=== PATIENT | female | born 1950 | race Caucasian/White ===

== ENCOUNTER 2023-12-29 16:56 | Inpatient (IN) | payer MEDICARE, OTHER, SELFPAY ==
[2023-12-29] VITALS (7 sets, daily range): BP systolic 105–114; BP diastolic 51–63; BMI 24.9; BMI 24.7
--- NOTE | 2023-12-29 12:28 | ED.GENMED ---
History of Present Illness
General
Chief Complaint: Abdominal Pain
Time Seen by Provider: 12/29/23 12:27
History of Present Illness
History of Present Illness:
HPI: Patient presents with upper abdominal pain. This started about 4 days ago. She is concerned about the positive pancreatitis as she has nausea and poor p.o. intake and is on Lumakras for lung cancer over the past 1 month. She tried some
marijuana drops last night which seem to help the pain. She has not had fevers. She has had a hysterectomy and no other abdominal surgeries.
EXAM:
GENERAL: Well appearing in no distress
HEENT: Moist oral mucosa
CARDIOVASCULAR: No murmurs, normal heart rate, regular rhythm, No chest wall tenderness
PULMONARY: No respiratory distress, breath sounds are clear and equal
ABDOMEN: Soft with no peritoneal signs, moderate upper abdominal tenderness
NEUROLOGIC: Excellent strength all extremities, no coordination deficits
PSYCHIATRIC: Appropriate mental status, normal insight and judgement
EXTREMITIES: Nontender, no edema, moves all extremities equally
SKIN: No rash, no lesions
TIME OF INITIAL ENCOUNTER: 12:30 PM
NUMBER AND COMPLEXITY OF PROBLEMS ADDRESSED AT THE ENCOUNTER
� Chronic conditions affecting care: Lung cancer, asthma, anemia, diabetes, hyperlipidemia
� Acute Exacerbation and/or Progression of Chronic Illness: This is an acute problem
� Differential Diagnosis includes: Bowel obstruction, dehydration, JAY, pancreatitis, cholecystitis
AMOUNT AND/OR COMPLEXITY OF DATA TO BE REVIEWED AND ANALYZED
� I performed an independent evaluation of and my interpretation is:
EKG:
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
X-rays:
Laboratory Studies: White count 7.2, hemoglobin 10.1, lipase normal, minimal LFT abnormality
Other:
� Review of other/old records: I reviewed records. The patient was admitted here in February 2023 with a COPD exacerbation. At that time he was also septic with pneumonia and had 'acute toxic encephalopathy due to Levaquin and
steroids'.
� Clinical information was obtained by an independent historian: None needed
� Prescriptions/Medications Considered but not given:
� Further testing considered but not performed:
RISK OF COMPLICATIONS AND/OR MORBIDITY OR MORTALITY OF PATIENT MANAGEMENT
� Social determinants of health affecting care: Lives at home
� Discussion with other providers: As patient has new abdominal pain in the abdomen abdomen with abnormal aorta imaging, I discussed case with vascular surgery.
� Escalation of care including admission/observation vs risk of discharge considered: The patient is given IV fluids due to concerns for the possible dehydration. She was encouraged to not take anything by mouth currently. Will
obtain CT imaging given the amount of tenderness that she has. CT imaging shows increasing size of known distal thoracic aortic aneurysm. Patient tells me she refused surgery as recommended by Dr. Paz in the past. However she also feels
uncomfortable going home. She did was given Dilaudid earlier in the stay today.
Past History
Past History
ED Past Medical History: Cancer and COPD
ED Past Surgical History: Negative Cholecystectomy
Social History
Tobacco: Former smoker
Alcohol: None
Drug: None
Personal:
Living: with family
Employment: Not employed
Family History
Family History: Other
Phy Exam
Physical Exam
Physical Exam:
See HPI
Course
Orders/Labs/Results
Orders:
Orders
12/29/23 12:29
0.9% Sodium Chloride 1000 ml [Nss] 1,000 ml IV BOLUS
12/29/23 12:37
0.9% Sodium Chloride 1000 ml [Nss] 1,000 ml IV BOLUS
Ondansetron Injectable [Zofran] 4 mg IV NOW STA
12/29/23 12:38
CT Abd/pelvis W Iv Cont Urgent
Comment:
Reason For Exam: upper abd pain tender nausea
12/29/23 13:10
HYDROmorphone [Dilaudid] 0.5 mg IV NOW STA
12/29/23 13:27
Complete Blood Count/With Diff Urgent
Comprehensive Metabolic Panel Urgent
Lipase Urgent
Abnormal Lab Results
12/29/23
13:27
RBC 3.60 L 10^6/uL
(4.20-5.40)
Hgb 10.1 L g/dL
(12.0-16.0)
Hct 30.4 L %
(37.0-47.0)
Absolute Lymphs (auto) 0.5 L 10^3/uL
(1.2-3.4)
Absolute Monos (auto) 0.8 H 10^3/uL
(0.1-0.6)
Neutrophils % 80.6 H %
(42.2-75.2)
Lymphocytes % 7.2 L %
(20.5-51.1)
Monocytes % 10.4 H %
(1.7-9.3)
Sodium 134 L mmol/L
(135-145)
Glucose 112 H mg/dl
(70-99)
AST 40 H U/L
(14-36)
ALT 51 H U/L
(0-35)
Alkaline Phosphatase 149 H U/L
(38-126)
Total Protein 6.0 L g/dl
(6.3-8.2)
Albumin 3.4 L g/dl
(3.5-5.0)
12/29/23 13:27
12/29/23 13:27
Vital Signs
Initial and Last Documented VS:
Initial Vital Signs
Temp Pulse Resp BP Pulse Ox
98.2 F 92 20 114/54 93
12/29/23 12:05 12/29/23 12:05 12/29/23 12:05 12/29/23 12:05 06/21/24 12:05
Last Documented Vital Signs
Temp Pulse Resp BP Pulse Ox
98.2 F 88 23 108/51 96
12/29/23 12:05 12/29/23 15:15 12/29/23 15:15 12/29/23 15:00 12/29/23 15:15
*Critical Care Note
Total Time (30-74mins, 75-104mins- exclusive of procedures): Not Applicable
ED Attending Note
-
Portions of this chart may have been created with voice recognition software.� Occasional wrong word or��sound alike� substitutions may have occurred due to the inherent limitations of voice recognition software.
Discharge Plan
Departure
Patient Disposition: Admit
Date of Disposition: 12/29/23
Time of Disposition: 16:09
Presentation/result/management discussed w/ accepting MD/DO: Hospitalist
Discharge Problem:
Abdominal pain
Prescriptions:
No Action
aspirin 81 MG tablet,delayed release (DR/EC)
81 mg PO DAILY Qty: 0 0RF
rosuvastatin [Crestor] 10 MG tablet
10 mg PO QPM
albuterol sulfate 1 PUFF HFA aerosol inhaler
2 puff inhalation R Q4 PRN (Reason: sob/wheeze)
cetirizine [Zyrtec] 10 mg Tablet
10 mg PO DAILY PRN (Reason: allergies)
amlodipine 5 mg tablet
5 mg PO DAILY
alprazolam 0.25 mg tablet
0.125 - 0.25 mg PO DAILY PRN (Reason: anxiety)
metoprolol tartrate 50 mg tablet
75 mg PO BID
nitroglycerin [Nitrostat] 0.4 mg Tablet, Sublingual
0.4 mg SUBLINGUAL [id number] PRN (Reason: chest pain)
montelukast 10 mg tablet
10 mg PO QPM
fluticasone propionate 50 mcg/actuation [place],Suspension
1 spray INTRANASAL DAILY PRN (Reason: allergies)
Bevespi Aerosphere 9-4.8 mcg HFA aerosol inhaler
2 puff INHALATION R BID
Medical Marijuana
3 - 5 drp PO HS
Rx Instructions:
for anxiety/dreams sleep
cefuroxime axetil 500 mg Tablet
500 mg PO BID Qty: 7 0RF
guaifenesin 600 mg Tablet Extended Release 12hr
600 mg PO Q12 Qty: 0 0RF
prednisone 10 mg tablet
10 mg PO DAILY Qty: 30 0RF
Rx Instructions:
Taper: 40mg daily x 3 days, 30mg daily x 3 days, 20mg daily x 3 days, 10mg daily x 3 days
metformin 500 mg Tablet
500 mg PO BID@0800,1700 Qty: 60 0RF
glipizide 5 mg Tablet
5 mg PO BID@0800,1700 Qty: 60 0RF
Referrals:
Héctor Serrano MD [Family Provider] -
Interventions
Interventions:
*Risk Screen - Suicide Last Done: 12/29/23 12:05
*General Assessment Last Done: 12/29/23 12:05
*Neglect/Abuse Screening Last Done: 12/29/23 12:05
[id number] Assessment Last Done: 12/29/23 13:05
Discharge Date and Time
Print Language: ESTONIAN
[2023-12-29] MEDS: NSS 1000 IV (13:26)
[2023-12-29] MEDS: ZOFRAN IV (13:26)
[2023-12-29] MEDS: DILAUDID 0.5 MG IV (13:26)
[2023-12-29 13:38] LABS: % Basophils 0.1 % (0-2); % Eosinophils 1.3 % (0-6); % Immature Granulocytes 0.4 % (0-0.5); % Lymphocytes 7.2 % (20.5-51.1); % Monocytes 10.4 % (1.7-9.3); % Neutrophils 80.6 % (42.2-75.2); Absolute Eosinophils 0.1 10^3/uL (0-0.7); Absolute Lymphocytes 0.5 10^3/uL (1.2-3.4); Absolute Monocytes 0.8 10^3/uL (0.1-0.6); Absolute Neutrophils 5.8 10^3/uL (1.4-6.5); Hematocrit 30.4 % (37.0-47.0); Hemoglobin 10.1 g/dL (12.0-16.0); Mean Corp Hgb Conc. 33.2 g/dL (33.0-37.0); Mean Corpuscular Hgb 28.1 pg (27.0-31.0); Mean Corpuscular Volume 84.4 fL (81.0-99.0); Mean Platelet Volume 8.9 fL (7.4-10.4); Nucleated Red Blood Cells % 0 %; Platelet Count 318 10^3/uL (130-400); Red Cell Dist. Width 12.9 % (11.5-14.5); White Blood Cell Count 7.2 10^3/uL (4.8-10.8)
[2023-12-29 13:50] LABS: ALT (SGPT) 51 U/L (0-35); AST (SGOT) 40 U/L (14-36); Albumin 3.4 g/dl (3.5-5.0); Alkaline Phosphatase 149 U/L (38-126); Blood Urea Nitrogen 11 mg/dl (7-17); Calcium 8.5 mg/dl (8.4-10.2); Carbon Dioxide 26 mmol/L (22-30); Chloride 98 mmol/L (98-107); Estimated Creatinine Clearance 62 ml/min; Glucose 112 mg/dl (70-99); Lipase 87 U/L (23-300); Potassium 3.9 mmol/L (3.5-5.1); Sodium 134 mmol/L (135-145); Total Bilirubin 0.6 mg/dl (0.2-1.3); eGFR > 60.00
[2023-12-29] MEDS: ZOFRAN 4 MG IV (14:35)
--- NOTE | 2023-12-29 15:28 | CON.VAS ---
Addendum entered and electronically signed by Mu Liang III, MD 12/29/23 18:25:
This patient was seen and examined with YASSINE Driver. I agree with the history and physical exam as well as the assessment and plan. I have the following additions:
Enlarging saccular aneurysm involving the distal descending thoracic aorta
Upper abdominal pain in sub-xyphoid area. No back pain.
Tender to touch on physical exam
I personally reviewed the CT images and compared them to prior scans.
I had a discussion with Mrs. Islas in the emergency room regarding the results of her scan and potential endovascular options which would pose challenges from an access perspective. I explained to her that I was concerned her aneurysm may be the
source of her symptoms. She is not an open surgical candidate. I explained to her that if her aneurysm were to rupture that this event would kill her. She is very clear that she does NOT want surgery of any kind.
Focus on pain management and blood pressure control. Would also involve palliative care/hospice at this point. Call if we can be of further assistance.
Signed:
Mu Liang III, MD
[facility] Surgery
[phone] (rndw)
Original Note:
Consultation
Consultation Request
Date/Time Consultation Performed: 12/29/2023 1630
Requesting Provider: ED physician
Performing Provider: Kimberlee Oliveros CHIEF DISPATCHER-C for Mu Liang III, MD
Reason for Consultation: Thoracic aortic aneurysm
Medical History
-
Chief Complaint: Upper abdominal pain
History of Present Illness:
This is a 73-year-old female with significant past medical history COPD, diabetes, hypertension, hyperlipidemia, lung cancer, CAD, and anxiety who presents to us on ER with roughly 5 days of worsening abdominal pain that is accompanied with nausea.
During ER evaluation CT with IV contrast of abdomen and pelvis was obtained demonstrating continued growth of known thoracic aortic aneurysm to now 5.6 x 7.1 x 6.[address] scan done on 05/18/2023 which had aneurysm measuring at 5.3 x 7.1 x
5.8 cm; prompting vascular surgery consultation. Patient endorses intermittent worsening bilateral epigastric area abdominal pain since roughly Monday, with worsening last evening and she would rate it 8/10 on pain scale. She endorses accompanying
decreased p.o. intake and nausea. She denies back pain, right-sided chest pain, vomiting, diarrhea, fever, shortness of breath, and chest pain. She did see vascular attending Dr. Stanton Paz our outpatient vascular surgery office in roughly 2018, she
was deemed a high risk surgical candidate for open repair and given her anatomy was not a candidate for TEVAR. Patient decided she did not want to progress with any form surgery to treat her thoracic aneurysm and did not come back for follow-up at
our vascular surgery office. She continues to endorse that she does not want any form of surgical intervention, and would prefer to pursue more of a palliative/hospice form of care. She indicates that she was actually pursuing palliative care in
the outpatient setting but recently was sick and could not establish any appointments.
Past Medical History
Past Medical History: CAD, Cancer (Lung), COPD, HTN, Hypercholesterolemia and NIDDM
Past Surgical History: Cardiac (Cardiac catheterization with PCI stents placed to mid RCA and mid circumflex (2012)), Gynecological ( x 2) and Other (Sinus surgery)
Social History
Tobacco: Former Smoker
Alcohol: Occasional
Allergies / Home Medications
Allergy/AdvReac Type Severity Reaction Status Date / Time
Penicillins Allergy Unknown Verified 12/29/23 12:05
�Medication �Instructions �Recorded �Confirmed �Type
aspirin 81 mg tablet,delayed 81 mg PO DAILY ##0 10/22/12 02/09/23 Rx
release
rosuvastatin 10 mg tablet (Crestor) 10 mg PO QPM 10/09/13 02/09/23 History
albuterol sulfate 90 mcg/actuation 2 puff inhalation R Q4 PRN 01/05/14 02/09/23 History
aerosol inhaler sob/wheeze
Medical Marijuana 3 - 5 drp PO HS 02/09/23 02/09/23 History
alprazolam 0.25 mg tablet 0.125 - 0.25 mg PO DAILY PRN 02/09/23 02/09/23 History
anxiety
amlodipine 5 mg tablet 5 mg PO DAILY 02/09/23 02/09/23 History
cetirizine 10 mg tablet (Zyrtec) 10 mg PO DAILY PRN allergies 02/09/23 02/09/23 History
fluticasone propionate 50 1 spray intranasal DAILY PRN 02/09/23 02/09/23 History
mcg/actuation nasal allergies
spray,suspension
glycopyrrolate 9 mcg-formoterol 2 puff inhalation R BID 02/09/23 02/09/23 History
4.8 mcg HFA aerosol inhaler
(Bevespi Aerosphere)
metoprolol tartrate 50 mg tablet 75 mg PO BID 02/09/23 02/09/23 History
montelukast 10 mg tablet 10 mg PO QPM 02/09/23 02/09/23 History
nitroglycerin 0.4 mg sublingual 0.4 mg sublingual [id number] PRN 02/09/23 02/09/23 History
tablet (Nitrostat) chest pain
cefuroxime axetil 500 mg tablet 500 mg PO BID #7 tabs 02/13/23 Rx
guaifenesin 600 mg tablet, 600 mg PO Q12 #0 tabs 02/13/23 Rx
extended release 12 hr
prednisone 10 mg tablet 10 mg PO DAILY #30 tabs 02/13/23 Rx
glipizide 5 mg tablet 5 mg PO BID@0800,1700 #60 tabs 02/14/23 Rx
metformin 500 mg tablet 500 mg PO BID@0800,1700 #60 tabs 02/14/23 Rx
Review of Systems
-
History Source: Patient
Constitutional: Reports No Symptoms
EENT: Reports No Symptoms
Respiratory: Reports No Symptoms
Cardiac: Reports No Symptoms
Abdomen/GI: Reports Abdominal Pain and Nausea
: Reports No Symptoms
Musculoskeletal: Reports No Symptoms
Skin: Reports No Symptoms
Neurological: Reports No Symptoms
Physical Exam
Vital Signs
Temp Pulse Resp BP Pulse Ox
98.2 F 88 23 108/51 96
12/29/23 12:05 12/29/23 15:15 12/29/23 15:15 12/29/23 15:00 12/29/23 15:15
Lab Results
12/29/23 13:27
12/29/23 13:27
Physical Exam
General: No Apparent Distress
HEENT: Normocephalic, Anicteric and Atraumatic
Respiratory: Non Labored Respirations
Cardiac: Negative JVD
GI: Soft and Tender (Tender to palpation at right and left upper quadrants particularly epigastric)
Genito-urinary: No Costovertebral Tender
Musculoskeletal: Edema
Skin: Warm and Dry
Neuro: AO x 3
Pulses: Bilateral Femoral: +1
Assessment / Plan
-
Assessment: 73-year-old female who presented with abdominal pain and history of thoracic aortic aneurysm
Plan:
Would recommend admitting patient to medicine for pain management and goals of care discussion
Would advise to have goal systolic blood pressure in the range of 120-90
Surgical plan per attending Dr. Mu Liang, although at this time patient indicates she has not no desire for surgical intervention
I performed this shared service with the attending. I evaluated the patient [id number] and have entered clinical documentation as shown in the encounter note. I performed the following component(s): history and physical exam. Note that medical
decision making is not final until attested by vascular attending.
--- NOTE | 2023-12-29 16:29 | HPS.HSE ---
Addendum entered and electronically signed by Melania Riley MD 12/29/23 18:28:
Resumed diet as patient not interested in surgery.
Original Note:
Family Physician
-
Family Physician: Héctor Serrano MD
Chief Complaint
-
abdominal pain
History of Present Illness
73-year-old female past medical history of thoracic aortic aneurysm, lung cancer, COPD, type 2 diabetes, hypertension, hyperlipidemia presenting with abdominal pain starting a week ago and progressively getting worse. Pain is located across the
lower part of the belly. She denies ever having pain like this before. She denies nausea, vomiting or diarrhea or changes in bowel movements. Denies fevers or chills. Denies chest pain or shortness of breath.
Patient has a history of thoracic aneurysm for which she has seen Dr. Paz in the past a few years ago but had declined surgery at that time.
She is a former smoker. She drinks alcohol occasionally.
Medical History
Past Medical History
Past Medical History: Reports Other ( thoracic aortic aneurysm, lung cancer, COPD, type 2 diabetes, hypertension, hyperlipidemia)
Past Surgical History: Reports Other (hysterectomy, sinus surgery, )
Social History
Tobacco: Former Smoker
Alcohol: Occasional
Drug: None
Family History
Family History: Not pertinent
Allergies / Home Medications
Allergies reflects when Allergies were last updated in [facility].
Home Medications with original date entered in [facility]
Allergy/Medication List:
Allergies
Allergy/AdvReac Type Severity Reaction Status Date / Time
Penicillins Allergy Unknown Verified 12/29/23 12:05
Home Medications
aspirin 81 mg tablet,delayed release 81 mg PO DAILY ##0 10/22/12
rosuvastatin 10 mg tablet (Crestor) 10 mg PO QPM 10/09/13
albuterol sulfate 90 mcg/actuation aerosol inhaler 2 puff inhalation R Q4 PRN sob/wheeze 01/05/14
Medical Marijuana 3 - 5 drp PO HS 02/09/23
alprazolam 0.25 mg tablet 0.125 - 0.25 mg PO DAILY PRN anxiety 02/09/23
amlodipine 5 mg tablet 5 mg PO DAILY 02/09/23
cetirizine 10 mg tablet (Zyrtec) 10 mg PO DAILY PRN allergies 02/09/23
fluticasone propionate 50 mcg/actuation nasal spray,suspension 1 spray intranasal DAILY PRN allergies 02/09/23
glycopyrrolate 9 mcg-formoterol 4.8 mcg HFA aerosol inhaler (BevesChannelMeter Aerosphere) 2 puff inhalation R BID 02/09/23
metoprolol tartrate 50 mg tablet 75 mg PO BID 02/09/23
montelukast 10 mg tablet 10 mg PO QPM 02/09/23
nitroglycerin 0.4 mg sublingual tablet (Nitrostat) 0.4 mg sublingual [id number] PRN chest pain 02/09/23
cefuroxime axetil 500 mg tablet 500 mg PO BID #7 tabs 02/13/23
guaifenesin 600 mg tablet, extended release 12 hr 600 mg PO Q12 #0 tabs 02/13/23
prednisone 10 mg tablet 10 mg PO DAILY #30 tabs 02/13/23
glipizide 5 mg tablet 5 mg PO BID@0800,1700 #60 tabs 02/14/23
metformin 500 mg tablet 500 mg PO BID@0800,1700 #60 tabs 02/14/23
Review of Systems
-
History Source: Patient
A 12 point ROS was completed and negative except as noted: Yes
Constitutional: Reports No Symptoms
EENT: Reports No Symptoms
Respiratory: Reports No Symptoms
Cardiac: Reports No Symptoms
Abdomen/GI: Reports See HPI
: Reports No Symptoms
Musculoskeletal: Reports No Symptoms
Skin: Reports No Symptoms
Neurological: Reports No Symptoms
Endocrine: Reports No Symptoms
Hematologic/Lymphatic: Reports No Symptoms
Psych: Reports No Symptoms
Physical Exam
Vital Signs
Vital Signs
Temp Pulse Resp BP Pulse Ox
98.2 F 88 23 108/51 96
12/29/23 12:05 12/29/23 15:15 12/29/23 15:15 12/29/23 15:00 12/29/23 15:15
Physical Exam
General: Well Developed, Well Nourished and No Apparent Distress
HEENT: NormoCephalic, Moist mucous membranes and Atraumatic
Respiratory: Clear
Cardiac: S1/S2 and Regular Rhythm; No Murmur or Rub
GI: Soft, Non Distended, Normal Bowel Sounds and Tender; No Organomegaly
Rectal: Deferred by Provider
Musculoskeletal: No Clubbing, No Cyanosis and No Edema
Skin: No Rash
Neuro: Nonfocal/grossly intact
Laboratory Results
-
12/29/23 13:27
12/29/23 13:27
Laboratory Results
Total Bilirubin 0.6 mg/dl (0.2-1.3) 12/29/23 13:27
AST 40 U/L (14-36) H 12/29/23 13:27
ALT 51 U/L (0-35) H 12/29/23 13:27
Alkaline Phosphatase 149 U/L (38-126) H 12/29/23 13:27
Lipase 87 U/L (23-300) 12/29/23 13:27
Data Reviewed
-
Lab Data: Labs Reviewed by me
Old Records: Reviewed
Impression/Plan
-
IMPRESSION:
PLAN:
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
-CT scan shows large saccular aneurysm measuring 5.6 x 7.1 x 6.3 cm slightly increased in size compared to prior, containing eccentric thrombus
-There is also mild fusiform aneurysmal dilatation of the infrarenal abdominal aorta up to 2.5 cm
-Maintain blood pressure below 120/80
-Dilaudid for pain
-NPO
-continue aspirin
-Vascular surgery consulted
# Mild transaminitis
-Continue to monitor
-Hold statin
# Normocytic anemia
-Hemoglobin of 10.1 from 13.5 last year
-No concerns for bleeding
Lung cancer s/p chemotherapy
-currently on Lumakras for past month
COPD
-continue nebs
-Continue montelukast
Type 2 diabetes
-Hold metformin
Essential hypertension
-Continue amlodipine
-Continue metoprolol
Hyperlipidemia
-hold statin
Anxiety
-continue prn xanax
Former smoker
DNR/DNI
DVT prophylaxis�SCDs
NPO
--- NOTE | 2023-12-29 18:39 | PTCARENOTE ---
pt arrived to unit 1800 via stretcher from ED. VSS. pt wearing 2LNC, new on admission. admissions completed by this nurse. brief physical assessment completed by this nurse, assessment benign.
[2023-12-29] MEDS: SINGULAIR 10 MG PO (20:14)
[2023-12-29] MEDS: LOPRESSOR PO (21:02)
[2023-12-29] MEDS: LOPRESSOR 50 MG PO (21:02)
[2023-12-30 06:43] LABS: % Basophils 0.2 % (0-2); % Eosinophils 2.8 % (0-6); % Immature Granulocytes 0.2 % (0-0.5); % Lymphocytes 15.9 % (20.5-51.1); % Monocytes 13.4 % (1.7-9.3); % Neutrophils 67.5 % (42.2-75.2); Absolute Eosinophils 0.1 10^3/uL (0-0.7); Absolute Lymphocytes 0.7 10^3/uL (1.2-3.4); Absolute Monocytes 0.6 10^3/uL (0.1-0.6); Absolute Neutrophils 2.9 10^3/uL (1.4-6.5); Hematocrit 31.9 % (37.0-47.0); Mean Corp Hgb Conc. 31.3 g/dL (33.0-37.0); Mean Corpuscular Hgb 27.5 pg (27.0-31.0); Mean Corpuscular Volume 87.6 fL (81.0-99.0); Mean Platelet Volume 8.9 fL (7.4-10.4); Nucleated Red Blood Cells % 0 %; Platelet Count 337 10^3/uL (130-400); Red Blood Cell Count 3.64 10^6/uL (4.20-5.40); Red Cell Dist. Width 12.8 % (11.5-14.5); White Blood Cell Count 4.3 10^3/uL (4.8-10.8)
[2023-12-30 07:08] LABS: ALT (SGPT) 55 U/L (0-35); AST (SGOT) 43 U/L (14-36); Albumin 3.2 g/dl (3.5-5.0); Alkaline Phosphatase 155 U/L (38-126); Blood Urea Nitrogen 9 mg/dl (7-17); Calcium 8.6 mg/dl (8.4-10.2); Carbon Dioxide 27 mmol/L (22-30); Chloride 102 mmol/L (98-107); Estimated Creatinine Clearance 62 ml/min; Glucose 88 mg/dl (70-99); Potassium 4.3 mmol/L (3.5-5.1); Sodium 137 mmol/L (135-145); Total Bilirubin 0.4 mg/dl (0.2-1.3); Total Protein 5.8 g/dl (6.3-8.2); eGFR > 60.00
[2023-12-30] MEDS: STRIVERDI RESPIMAT 2 PUFF INH (07:56)
[2023-12-30] MEDS: SPIRIVA RESPIMAT 2.5 MCG 2 PUFF INH (07:56)
[2023-12-30 08:00] VITALS: BP 112/54
[2023-12-30] MEDS: ASPIR LOW (ENTERIC COATED) 81 MG PO (08:13)
[2023-12-30] MEDS: NORVASC 5 MG PO (08:13)
[2023-12-30] MEDS: LOPRESSOR 100 MG PO ×2 (08:13→20:15)
--- NOTE | 2023-12-30 10:01 | PTCARENOTE ---
PT is awake alert oriented x3 pleasant and articulate. Pt denied any pain at this time and vitals stable. BP 112/54 wtih goals 120/80. PT admitted she felt anxious and angry at doctors for bombarding her yesterday with talks of surgery. I provided
emotional support and educated her on why doctors offered her solution. PT is DNR bracelet maintained. PT ambulates independently. Gait is steady. PT with hx of fall and is on fall risk. PT was educated on fall risk, she has hospital socks on,
bed is low in position and encouraged safe ambulation. Left port is accessed capped. HRR+PP trace edema . PT denies any cp or palpitations. Lungs clear decreased no cough or sputum noted. oxygen removed this am and was 95% on room air rest. pt
slightly SOB not noted by me , but verbalized by patient, pulse ox 95% on room air at rest. Sob improved after 2 minutes. Abd soft NT +BS no bm. PT voids in bathroom without any difficulty. Around 930 I found pt out of bed doing yoga poses
stretches. She was steady and made slow deliberate moves and appear She stated she was doing it as it is her daily thing and to improve her HR and breathing. I educated her on her fall risk and she did tell me she would follow all safety
precautions. She is alert able to make independent decision and wants to do yoga. aware. PT sitting in bed with callbell in hand
--- NOTE | 2023-12-30 10:45 | PTCARENOTE ---
Pt asked me for information about assisted suicide for next monday I explained to her that [employer] and [employer] does not do that and that it is illegal. I pressed further she stated she wants to decide when where and how she days. I explained to her that
depending on the MD orders they could potentially order hospice palliative care. I explained the difference between the two. I sought clarification as to what she was asking and i asked if she was asking for end of life care. She stated she wants to
plan her because she was told it will be a painful and wants to avoid it. I spent 15 minutes with patient for emotional support. I notified MD and am awaiting future orders.
--- NOTE | 2023-12-30 12:57 | CM ---
Case Management Consult completed; referral to compliance mgr manager organizational sent and acknowledged
--- NOTE | 2023-12-30 13:11 | W.PN.HOSP.TC ---
Addendum entered and electronically signed by Óscar Zayas MD 12/30/23 16:12:
can continue statin, with close f/u of LFTs outpatient
Addendum entered and electronically signed by Óscar Zayas MD 12/30/23 16:10:
[id number]
Addendum entered and electronically signed by Óscar Zayas MD 12/30/23 16:02:
Can f/u US, abd outpatient; refusing any surgical intervention regardless - therefore would not change response. ching neg and rachelle wnl.
Original Note:
Today's Communication/Plan
-
does not want surgical intervention
ruq sono
DC today
hospice info given
Assessment / Plan
Assessment / Plan
Physical Exam
General: Well Developed, Well Nourished and No Apparent Distress
HEENT: NormoCephalic, Moist mucous membranes and Atraumatic
Respiratory: Clear
Cardiac: S1/S2 and Regular Rhythm; No Murmur or Rub
GI: Soft, Non Distended, Normal Bowel Sounds and Tender; No Organomegaly
Rectal: Deferred by Provider
Musculoskeletal: No Clubbing, No Cyanosis and No Edema
Skin: No Rash
Neuro: Nonfocal/grossly intact
PLAN:
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
-CT scan shows large saccular aneurysm measuring 5.6 x 7.1 x 6.3 cm slightly increased in size compared to prior, containing eccentric thrombus
-There is also mild fusiform aneurysmal dilatation of the infrarenal abdominal aorta up to 2.5 cm
-Maintain blood pressure below 120/80
-Pain control
-Does not want surgical intervention - educated on risks: please see surgical note
-Resume diet
-continue aspirin
-Vascular surgery consulted
-Hospice consulted - information given
# Mild transaminitis
-murphys negative
-Continue to monitor
-Hold statin
-F/u RUQ Sono although once again, not ideal surgical candidate
# Normocytic anemia
-Hemoglobin of 10.1 from 13.5 last year
-No concerns for bleeding
Lung cancer s/p chemotherapy
-currently on Lumakras for past month
COPD
-continue nebs
-Continue montelukast
Type 2 diabetes
-Hold metformin
Essential hypertension
-Continue amlodipine
-Continue metoprolol
Hyperlipidemia
-hold statin
Anxiety
-continue prn xanax
Former smoker
DNR/DNI
DVT prophylaxis�SCDs
More than 30 minutes spent in discharge including
Final examination of the patient
Summarizing hospital stay
Instructions for continuing care to all relevant caregivers
Preparation of discharge records, prescriptions, and referral forms
Total time spent (35 in minutes):
Anticipated Discharge: Today
Subjective/Interval History
-
Date of Service: December 30, 2023
patient does not want surgical intervention
Objective Data
-
Labs:
Laboratory Results
12/30/23
06:27
WBC 4.3 L
Hgb 10.0 L
Hct 31.9 L
Plt Count 337
Sodium 137
Potassium 4.3
Chloride 102
Carbon Dioxide 27
BUN 9
Creatinine 0.5 L
Glucose 88
Calcium 8.6
Total Bilirubin 0.4
AST 43 H
ALT 55 H
Alkaline Phosphatase 155 H
Vital Signs:
Vital Signs
Temp Pulse Resp BP Pulse Ox
97.7 F 83 16 112/54 95
12/30/23 08:00 12/30/23 08:00 12/30/23 08:00 12/30/23 08:00 12/30/23 09:54
I&O
12/29/23 12/30/23 12/31/23
06:59 06:59 06:59
Intake Total 240 / 240
Balance 240 / 240
Review of Systems
-
History Source: Patient
All other systems: Reviewed and negative
Data Reviewed
-
Labs: Labs Reviewed by me
--- NOTE | 2023-12-30 13:15 | HOSPNOTE ---
Addendum entered by Talya Franco RN 12/30/23 13:22:
Hospice information packet will be given to patient today to have as a reference as requested.
Original Note:
Was contacted by CM to speak to patient regarding hospice services. I called and spoke to patient. I explained hospice care vs palliative care. She verbalized understanding. At this time she is not certain on what she will need. She stated that she
is awaiting on a definitive answer from the doctors on her prognosis. She feels the cancer medication she has been taking could be worsening the triple A that she has. She expressed the interest in the right to and assisted suicide. She stated
that she has watched family members over the past 5 years and she does not want to be a story like that. She wants to go out while she is still able to do so with her whits about her. I also called and spoke to her spouse Darian. He did not know
himself if patient was ready for palliative or hospice at this time. He is aware of the patients wishes for assisted suicide and has spoken about it before in the past. He requested a call from the attending with an update. Communicated all of this
to CM. Hospice will be available if patient decides that hospice is the avenue she wishes to proceed with. She is aware that hospice and [facility] do not offer assisted suicide. Emotional support and active listening provided.
--- NOTE | 2023-12-30 13:19 | W.DS.TRANS ---
DC Summary - Map Mounter
-
Discharge Instructions:
Discharge Diagnosis/Procedures Abdominal pain concerning for symptomatic
enlarging large saccular aneurysm of thoracic
aorta
Mild fusiform aneurysmal dilatation of the
infrarenal abdominal aorta
large saccular aneurysm measuring 5.6 x 7.1 x 6.
3 cm slightly increased in size compared to
prior, containing eccentric thrombus
Diet Low Cholesterol,Low Fat,Diabetic, Carb
Controlled
Activity As tolerated
Blood Work lfts in 3-5 days with pcp
Instructions:
Stand-Alone Forms:
Changes to Home Medications: No
Discharge Medications:
DC Medications w/original date entered in [employer]
aspirin 81 mg tablet,delayed release 81 mg PO DAILY ##0 10/22/12
albuterol sulfate 90 mcg/actuation aerosol inhaler 2 puff inhalation R Q4 PRN sob/wheeze 01/05/14
Medical Marijuana 800 mg PO HS 02/09/23
alprazolam 0.25 mg tablet 0.125 - 0.25 mg PO DAILY PRN anxiety 02/09/23
amlodipine 5 mg tablet 5 mg PO DAILY 02/09/23
cetirizine 10 mg tablet (Zyrtec) 10 mg PO DAILY PRN allergies 02/09/23
fluticasone propionate 50 mcg/actuation nasal spray,suspension 1 spray intranasal DAILY PRN allergies 02/09/23
glycopyrrolate 9 mcg-formoterol 4.8 mcg HFA aerosol inhaler (Bevespi Aerosphere) 2 puff inhalation R BID 02/09/23
metoprolol tartrate 50 mg tablet 100 mg PO BID 02/09/23
montelukast 10 mg tablet 10 mg PO QPM 02/09/23
nitroglycerin 0.4 mg sublingual tablet (Nitrostat) 0.4 mg sublingual [id number] PRN chest pain 02/09/23
metformin 500 mg tablet 500 mg PO BID@0800,1700 #60 tabs 02/14/23
rosuvastatin 10 mg tablet 10 mg PO QPM 12/29/23
sotorasib 320 mg tablet (Lumakras) 960 mg PO DAILY@1230 12/29/23
Home Medication Changes
na
Pending Results: No
--- NOTE | 2023-12-30 13:56 | CM ---
Met with patient at the bedside; initial assessment and Case Management Consult completed; referral sent to director of partnerships sanitation laborer; referral acknowledged
Pharmacy verified: [facility] [place]
Signed IMM (12/29/23) on the chart
Patient has a history of Lung Cancer and has an enlarging aneurysm thoracic aorta; not a surgical candidate
Verbalized to care team and hospice case manager that she has the 'right to '; will consider Hospice with Home Hospice
Patient lives in a multilevel home w/ her , son, and 6 yr old grandson; 1 step to enter; powder room on the 1st floor; full bath and bedroom on the 2nd floor; plans to put a bed in her dining room
PLOF: reports that she has been independent with ambulation and ADLs; Decided that she is no longer going to drive
SNF/Home Health utilization history: none
Transportation: Son will provide ride home
Plan: discharge to home today; director of partnerships provided Hospice information packet
[2023-12-30 16:00] VITALS: BP 128/65
[2023-12-30] MEDS: SINGULAIR 10 MG PO (17:30)
[2023-12-30 20:13] VITALS: BP 142/68
--- NOTE | 2023-12-30 20:43 | PTCARENOTE ---
Patient discharged. Vitals were taken and stable. Patient is AAO x3. Patient in no acute distress. Patient had right chest port de-accessed. Patient educated on home meds and discharge paperwork. Patient left hospital with in wheelchair.
== END 2023-12-30 20:45 | disposition home or self-care (01) | DRG 300 ==
LOC: 3 WEST ACU 16:56
PROVIDERS: ADMITTING PHYSICIAN Hospitalist; ATTENDING PHYSICIAN Internal Medicine; CONSULT PHYSICIAN Surgery Vascular Surgery; EMERGENCY PHYSICIAN Emergency Medicine; FAMILY PHYSICIAN Internal Medicine Gastroenterology
DX: I71.23 Aneurysm of the descending thoracic aorta, without rupture (principal); C34.90 Malignant neoplasm of unspecified part of unspecified bronchus or lung; I74.11 Embolism and thrombosis of thoracic aorta; D64.9 Anemia, unspecified; J44.9 Chronic obstructive pulmonary disease, unspecified; E11.9 Type 2 diabetes mellitus without complications; I10 Essential (primary) hypertension; Z51.5 Encounter for palliative care; Z66 Do not resuscitate; I25.10 Atherosclerotic heart disease of native coronary artery without angina pectoris; F41.9 Anxiety disorder, unspecified; R74.01 Elevation of levels of liver transaminase levels; E78.5 Hyperlipidemia, unspecified; Z79.82 Long term (current) use of aspirin; Z79.84 Long term (current) use of oral hypoglycemic drugs; Z79.52 Long term (current) use of systemic steroids; Z79.899 Other long term (current) drug therapy; Z87.891 Personal history of nicotine dependence; Z95.5 Presence of coronary angioplasty implant and graft; Z88.0 Allergy status to penicillin
CPT/HCPCS: 74177; 76700; 80053; 83690; 85025; 94640; 96361; 96374; 96375; 99285; Q9967

== ENCOUNTER 2024-03-15 19:09 | Inpatient (IN) | payer MEDICARE, OTHER, SELFPAY ==
[2024-03-15 15:23] VITALS: BP 167/83
[2024-03-15 15:34] LABS: % Basophils 0.1 % (0-2); % Eosinophils 1.6 % (0-6); % Immature Granulocytes 0.7 % (0-0.5); % Lymphocytes 15.2 % (20.5-51.1); % Monocytes 12.8 % (1.7-9.3); % Neutrophils 69.6 % (42.2-75.2); Absolute Eosinophils 0.1 10^3/uL (0-0.7); Absolute Immature Granulocytes 0.1 10^3/uL (0-0.05); Absolute Lymphocytes 1.1 10^3/uL (1.2-3.4); Absolute Monocytes 0.9 10^3/uL (0.1-0.6); Absolute Neutrophils 4.9 10^3/uL (1.4-6.5); Hematocrit 37.6 % (37.0-47.0); Hemoglobin 12.5 g/dL (12.0-16.0); Mean Corp Hgb Conc. 33.2 g/dL (33.0-37.0); Mean Corpuscular Hgb 27.4 pg (27.0-31.0); Mean Corpuscular Volume 82.5 fL (81.0-99.0); Mean Platelet Volume 8.5 fL (7.4-10.4); Nucleated Red Blood Cells % 0 %; Platelet Count 299 10^3/uL (130-400); Red Blood Cell Count 4.56 10^6/uL (4.20-5.40); Red Cell Dist. Width 13.7 % (11.5-14.5)
[2024-03-15 15:57] LABS: ALT (SGPT) 11 U/L (0-35); AST (SGOT) 19 U/L (14-36); Albumin 4.5 g/dl (3.5-5.0); Alkaline Phosphatase 91 U/L (38-126); Blood Urea Nitrogen 11 mg/dl (7-17); Calcium 9.2 mg/dl (8.4-10.2); Carbon Dioxide 20 mmol/L (22-30); Glucose 98 mg/dl (70-99); Total Protein 6.9 g/dl (6.3-8.2); eGFR > 60.00
[2024-03-15 16:18] LABS: Chloride 94 mmol/L (98-107); Lipase 3239 U/L (23-300); Potassium 4.4 mmol/L (3.5-5.1); Sodium 131 mmol/L (135-145)
--- NOTE | 2024-03-15 17:03 | ED.GENMED ---
History of Present Illness
<Devyn Fernandez Carson, DO - Last Filed: 03/15/24 17:41>
General
Chief Complaint: Abdominal Symptoms
Time Seen by Provider: 03/15/24 16:51
History of Present Illness
History of Present Illness:
HPI: RUQ and bloating along w/ nausea past 3d. On med for lung CA. the patient was admitted here nearly 3 months ago and is found to have a large saccular aneurysm of the thoracic aorta measuring as high as 7.1 cm containing eccentric thrombus but
was felt not to be a candidate for surgery after discussion with vascular surgery. At that time her lipase was 87 (today is [id number]). She mentions that she is aware that the chemo med that she is on is known to cause pancreatitis.
EXAM:
GENERAL: Well appearing with appropriate mental status however at times has been having dry heaves
HEENT: Moist oral mucosa
CARDIOVASCULAR: No murmurs, normal heart rate, regular rhythm, No chest wall tenderness
PULMONARY: No respiratory distress, breath sounds are clear and equal
ABDOMEN: Soft with no peritoneal signs, very mild epigastric tenderness
NEUROLOGIC: Good strength all extremities, no coordination deficits
PSYCHIATRIC: Appropriate mental status, normal insight and judgement
EXTREMITIES: Nontender, no edema, moves all extremities equally
SKIN: No rash, no lesions
TIME OF INITIAL ENCOUNTER: 5:30 PM
NUMBER AND COMPLEXITY OF PROBLEMS ADDRESSED AT THE ENCOUNTER
� Chronic conditions affecting care: Lung cancer, high blood pressure, GERD
� Acute Exacerbation and/or Progression of Chronic Illness: This is an acute problem
� Differential Diagnosis includes: Medication induced pancreatitis, idiopathic pancreatitis, additional malignancy, gallstone pancreatitis
AMOUNT AND/OR COMPLEXITY OF DATA TO BE REVIEWED AND ANALYZED
� I performed an independent evaluation of and my interpretation is:
EKG:
CT:
X-rays:
Laboratory Studies: Lipase 30-39, white count normal, bicarb slightly low at 20
Other:
� Review of other/old records: I reviewed the hospitalization from December 2023
� Clinical information was obtained by an independent historian: None needed
� Prescriptions/Medications Considered but not given:
� Further testing considered but not performed: Considered imaging studies however the patient just had ultrasound and CAT scan 3 months ago. Recommendation was for MRCP.
RISK OF COMPLICATIONS AND/OR MORBIDITY OR MORTALITY OF PATIENT MANAGEMENT
� Social determinants of health affecting care: Lives at home
� Discussion with other providers: Hospitalist for admission
� Escalation of care including admission/observation vs risk of discharge considered: The patient is given IV fluids after her port was accessed. She will stay NPO. She was given Zofran.
Past History
<Sandi Kat MD, Resident - Last Filed: 03/15/24 21:59>
Past History
ED Past Medical History: Cancer and COPD
ED Past Surgical History: Negative Cholecystectomy
Social History
Tobacco: Former smoker
Alcohol: None
Drug: None
Personal:
Living: with family
Employment: Not employed
Family History
Family History: Other
Phy Exam
<Sandi Kat MD, Resident - Last Filed: 03/15/24 21:59>
General Physical Exam
General Presentation: other (appears uncomfortable)
General Skin: dry
General Habitus: normal
General Mental: alert
General Hydration: appears well hydrated
Cardiovascular Exam
Cardiovascular Exam: regular rate/rhythm, no edema and no murmur
Pulmonary Exam
Pulmonary Exam: lungs clear, no respiratory distress, no rales, no crackles and no rhonchi
Gastrointestinal Exam
Gastrointestinal Exam: normal bowel sounds, soft, non distended, no cva tenderness and tender (RUQ and epigastric tenderness)
Course
<Devyn Byrd, DO - Last Filed: 03/15/24 17:41>
Orders/Labs/Results
Orders:
Orders
03/15/24 Breakfast
NPO
Allow oral meds: Yes
Allow clear liquids: Sips of Clears
03/15/24 Dinner
NPO
Allow oral meds: Yes
Allow clear liquids: No
03/15/24 15:27
Complete Blood Count/With Diff Urgent
Comprehensive Metabolic Panel Urgent
Lipase Urgent
03/15/24 17:03
Ondansetron Injectable [Zofran] 4 mg IV NOW STA
03/15/24 17:34
0.9% Sodium Chloride 500 ml [Nss] 500 ml IV BOLUS
Ondansetron Injectable [Zofran] 4 mg .ROUTE .STK-MED ONE
03/15/24 18:31
Admit/Transfer Patient As Directed
Co-Sign Provider:
Level of Care: Inpatient admission
Assign to:: Medical/Surgical
Physician / Group: Rosemary
Diagnosis: Pancreatitis
Reason for Hospitalization: IVFs
Expected length of stay greater than two midnights?: Yes
ELOS- Estimated Length of Stay in days: 3
I certify the patient meets the requirements for IP care: Yes
03/15/24 18:32
PRN Pain Medication Management As Directed
May give lesser potent ordered pain med per pt: Yes
preference::
Protocol:: Medication orders for pain may be administered in a
manner that supports deferring to patient preference
when the pt is:
- Requesting an ordered lesser potent pain medication.
Least to most potent pain medications are defined
as: acetaminophen < NSAID < tramadol < opioids
(morphine, oxycodone, hydromorphone).
- Requesting a lesser dose of the same medication IF
ORDERED.
- Requesting a less intrusive route of administration
if both routes are prescribed by the provider (PO <
IV).
03/15/24 18:53
Code Status As Directed
Resuscitation Status: Do not resuscitate
Reached after discussion with pt or family/Healthcare POA: Yes
03/15/24 18:54
DNR Bracelet Application ONCE
03/15/24 20:50
0.9% Sodium Chloride 1000 ml [Nss] 1,000 ml IV 150 mls/hr
Acetaminophen [Tylenol] 650 mg PO Q4HPRN PRN
Alprazolam [Xanax] 0.25 mg PO DAILYPRN PRN
Dextrose 50%-Water [Dextrose 50% Syringe] 12.5 grams IV [id number] PRN
Glucagon [GlucaGen] 1 mg IM PRN PRN
HYDROmorphone [Dilaudid] 0.25 mg IV Q3HPRN PRN
Metoprolol [Lopressor] 100 mg PO BID
Ondansetron Injectable [Zofran] 4 mg IV Q6HPRN PRN
03/15/24 20:50
GASTROINTESTINAL CONSULT Routine
Consulting Provider: oHney Loving
Was physician already notified: Yes
Activity As Directed
Activity Level: Out of Bed-Early Mobility
With Assistance
Bedside Glucose Monitoring As Directed
Frequency: AC&HS
Additional Instructions:: Change to q6h if pt on TPN, tube feeding or not eating
I&O [Intake/ Output] As Directed
Frequency: q12h
Vital Signs As Directed
Frequency: Per unit guidelines
Weight As Directed
Frequency: Daily
DX Deep Vein Thrombosis Video Routine
03/16/24 06:00
Basic Metabolic Panel IN AM
Complete Blood Count/No Diff IN AM
Glycohemoglobin (HgbA1c) IN AM
Lipase IN AM
Magnesium IN AM
03/16/24 07:30
Insulin Aspart Corrective Low [Novolog Flexpen-Low Resistance] See Protocol SC AC
03/16/24 08:00
Amlodipine [Norvasc] 10 mg PO DAILY
Aspirin Low Dose EC [Aspir Low (Enteric Coated)] 81 mg PO DAILY
Lisinopril [Zestril] 2.5 mg PO DAILY
Tiotropium Bird In Hand 2.5 Mcg [Spiriva Respimat 2.5 Mcg] 2 puff INH R DAILY
03/16/24 12:30
sotorasib [Lumakras] 640 mg PO DAILY@1230
03/16/24 18:00
Enoxaparin Sodium [Lovenox] 40 mg SC QPM
Montelukast Sodium [Singulair] 10 mg PO QPM
Abnormal Lab Results
03/15/24
15:27
Abs Immat Gran (auto) 0.1 H 10^3/uL
(0-0.05)
Absolute Lymphs (auto) 1.1 L 10^3/uL
(1.2-3.4)
Absolute Monos (auto) 0.9 H 10^3/uL
(0.1-0.6)
Immature Gran % 0.7 H %
(0-0.5)
Lymphocytes % 15.2 L %
(20.5-51.1)
Monocytes % 12.8 H %
(1.7-9.3)
Sodium 131 L mmol/L
(135-145)
Chloride 94 L mmol/L
(98-107)
Carbon Dioxide 20 L mmol/L
(22-30)
Creatinine 0.5 L mg/dL
(0.6-1.0)
Lipase 3239 H* U/L
(23-300)
03/15/24 15:27
03/15/24 15:27
Vital Signs
Initial and Last Documented VS:
Initial Vital Signs
Temp Pulse Resp BP Pulse Ox
97.7 F 85 16 167/83 96
03/15/24 15:23 03/15/24 15:23 03/15/24 15:23 03/15/24 15:23 03/15/24 15:23
Last Documented Vital Signs
Temp Pulse Resp BP Pulse Ox
98.1 F 94 18 129/70 93
03/15/24 21:01 03/15/24 21:01 03/15/24 21:01 03/15/24 21:01 03/15/24 21:01
<Sandi Kat MD, Resident - Last Filed: 03/15/24 21:59>
Orders/Labs/Results
Orders:
Orders
03/15/24 Breakfast
NPO
Allow oral meds: Yes
Allow clear liquids: Sips of Clears
03/15/24 Dinner
NPO
Allow oral meds: Yes
Allow clear liquids: No
03/15/24 15:27
Complete Blood Count/With Diff Urgent
Comprehensive Metabolic Panel Urgent
Lipase Urgent
03/15/24 17:03
Ondansetron Injectable [Zofran] 4 mg IV NOW STA
03/15/24 17:34
0.9% Sodium Chloride 500 ml [Nss] 500 ml IV BOLUS
Ondansetron Injectable [Zofran] 4 mg .ROUTE .STK-MED ONE
03/15/24 18:31
Admit/Transfer Patient As Directed
Co-Sign Provider:
Level of Care: Inpatient admission
Assign to:: Medical/Surgical
Physician / Group: Rosemary
Diagnosis: Pancreatitis
Reason for Hospitalization: IVFs
Expected length of stay greater than two midnights?: Yes
ELOS- Estimated Length of Stay in days: 3
I certify the patient meets the requirements for IP care: Yes
03/15/24 18:32
PRN Pain Medication Management As Directed
May give lesser potent ordered pain med per pt: Yes
preference::
Protocol:: Medication orders for pain may be administered in a
manner that supports deferring to patient preference
when the pt is:
- Requesting an ordered lesser potent pain medication.
Least to most potent pain medications are defined
as: acetaminophen < NSAID < tramadol < opioids
(morphine, oxycodone, hydromorphone).
- Requesting a lesser dose of the same medication IF
ORDERED.
- Requesting a less intrusive route of administration
if both routes are prescribed by the provider (PO <
IV).
03/15/24 18:53
Code Status As Directed
Resuscitation Status: Do not resuscitate
Reached after discussion with pt or family/Healthcare POA: Yes
03/15/24 18:54
DNR Bracelet Application ONCE
03/15/24 20:50
0.9% Sodium Chloride 1000 ml [Nss] 1,000 ml IV 150 mls/hr
Acetaminophen [Tylenol] 650 mg PO Q4HPRN PRN
Alprazolam [Xanax] 0.25 mg PO DAILYPRN PRN
Dextrose 50%-Water [Dextrose 50% Syringe] 12.5 grams IV [id number] PRN
Glucagon [GlucaGen] 1 mg IM PRN PRN
HYDROmorphone [Dilaudid] 0.25 mg IV Q3HPRN PRN
Metoprolol [Lopressor] 100 mg PO BID
Ondansetron Injectable [Zofran] 4 mg IV Q6HPRN PRN
03/15/24 20:50
GASTROINTESTINAL CONSULT Routine
Consulting Provider: Honey Loving
Was physician already notified: Yes
Activity As Directed
Activity Level: Out of Bed-Early Mobility
With Assistance
Bedside Glucose Monitoring As Directed
Frequency: AC&HS
Additional Instructions:: Change to q6h if pt on TPN, tube feeding or not eating
I&O [Intake/ Output] As Directed
Frequency: q12h
Vital Signs As Directed
Frequency: Per unit guidelines
Weight As Directed
Frequency: Daily
DX Deep Vein Thrombosis Video Routine
03/16/24 06:00
Basic Metabolic Panel IN AM
Complete Blood Count/No Diff IN AM
Glycohemoglobin (HgbA1c) IN AM
Lipase IN AM
Magnesium IN AM
03/16/24 07:30
Insulin Aspart Corrective Low [Novolog Flexpen-Low Resistance] See Protocol SC AC
03/16/24 08:00
Amlodipine [Norvasc] 10 mg PO DAILY
Aspirin Low Dose EC [Aspir Low (Enteric Coated)] 81 mg PO DAILY
Lisinopril [Zestril] 2.5 mg PO DAILY
Tiotropium Bird In Hand 2.5 Mcg [Spiriva Respimat 2.5 Mcg] 2 puff INH R DAILY
03/16/24 12:30
sotorasib [Lumakras] 640 mg PO DAILY@1230
03/16/24 18:00
Enoxaparin Sodium [Lovenox] 40 mg SC QPM
Montelukast Sodium [Singulair] 10 mg PO QPM
Abnormal Lab Results
03/15/24
15:27
Abs Immat Gran (auto) 0.1 H 10^3/uL
(0-0.05)
Absolute Lymphs (auto) 1.1 L 10^3/uL
(1.2-3.4)
Absolute Monos (auto) 0.9 H 10^3/uL
(0.1-0.6)
Immature Gran % 0.7 H %
(0-0.5)
Lymphocytes % 15.2 L %
(20.5-51.1)
Monocytes % 12.8 H %
(1.7-9.3)
Sodium 131 L mmol/L
(135-145)
Chloride 94 L mmol/L
(98-107)
Carbon Dioxide 20 L mmol/L
(22-30)
Creatinine 0.5 L mg/dL
(0.6-1.0)
Lipase 3239 H* U/L
(23-300)
03/15/24 15:27
03/15/24 15:27
Vital Signs
Initial and Last Documented VS:
Initial Vital Signs
Temp Pulse Resp BP Pulse Ox
97.7 F 85 16 167/83 96
03/15/24 15:23 03/15/24 15:23 03/15/24 15:23 03/15/24 15:23 03/15/24 15:23
Last Documented Vital Signs
Temp Pulse Resp BP Pulse Ox
98.1 F 94 18 129/70 93
03/15/24 21:01 03/15/24 21:01 03/15/24 21:01 03/15/24 21:01 03/15/24 21:01
<Sandi Kat MD, Resident - Last Filed: 03/15/24 21:59>
MDM/Problems Addressed
Differential Diagnosis Includes:
pancreatitis, cholecystitis, cholelithiasis
MDM/Problems Addressed:
Lactate elevated >3000. Patient with abdominal pain with RUQ and epigastric tenderness. Hx of tumefactive sludge in gallbladder. Pt is on Lumakras which she states can have side effect of pancreatitis. Pt is not stable for discharge to home. Started
fluids in ED, zofran for nausea. Pt is NPO. Will admit to hospitalist service
<Sandi Kat MD, Resident - Last Filed: 03/15/24 21:59>
*Critical Care Note
Total Time (30-74mins, 75-104mins- exclusive of procedures): Not Applicable
ED Attending Note
<Devyn Byrd, - Last Filed: 03/15/24 17:41>
ED Attending Note
Patient seen and examined by attending physician: Yes
I performed the substantive portion of visit, reviewed & personally made and approve the management plan that is documented in note by myself or NURY.: Yes
I performed a history and physical exam of patient and discussed management with resident, I reviewed resident's note and agree with documented findings and plan of care.: Yes
ED Attending Note:
I evaluated the patient at bedside with the resident
<Sandi Kat MD, Resident - Last Filed: 03/15/24 21:59>
-
Portions of this chart may have been created with voice recognition software.� Occasional wrong word or��sound alike� substitutions may have occurred due to the inherent limitations of voice recognition software.
Discharge Plan
Departure
Patient Disposition: Admit
Date of Disposition: 03/15/24
Time of Disposition: 18:34
Presentation/result/management discussed w/ accepting MD/DO: Hospitalist
Patient with high blood pressure during this ER visit?: Yes
Discharge Problem:
Acute pancreatitis
Interventions
Interventions:
*Risk Screen - Suicide Last Done: 03/15/24 21:09
*General Assessment Last Done: 03/15/24 19:05
*Neglect/Abuse Screening Last Done: 03/15/24 19:05
ED- Fall Risk Assessment Last Done: 03/15/24 19:05
*ED COVID-19 Vaccine History Last Done: 03/15/24 21:09
*Nursing Disposition Last Done: 03/15/24 20:08
MM-Seatnx-Uuctcckosn Assessment Last Done: 03/15/24 19:05
Discharge Date and Time
Discharge Date/Time: 03/15/24 20:10
[2024-03-15] MEDS: NSS 500 IV (17:39)
[2024-03-15] MEDS: ZOFRAN 4 MG IV (17:39)
--- NOTE | 2024-03-15 18:31 | HPS.HSE ---
Family Physician
-
Family Physician: Sommer Pedraza
Chief Complaint
-
Abdominal Pain
History of Present Illness
Patient is a 73 yo patient with a history of adenocarcinoma of the lung, COPD, aortic aneurysm, hypertension, hyperlipidemia and diabetes mellitus who presents with 2 days of abdominal pain, nausea and vomiting. Her pain is a constant dull ache in
the RUQ that radiates to her back. She says it is of moderate severity and worsens with movement. She does not drink alcohol. She uses medical marijuana about twice a week to help her sleep. She denies fevers, chills, yellowing of her skin, chest
pain, new SOB, diarrhea, constipation.
Medical History
Past Medical History
Past Medical History: Reports Other
Additional Past Medical History:
Lung Adenocarcinoma
COPD
Diabetes Mellitus, Type II
Essential Hypertension
Hyperlipidemia
Aortic Aneurysm
Past Surgical History: Reports Other
Additional Past Surgical History:
Hysterectomy
B/L Carpel Tunnel Repair
Sinus Surgery
Social History
Tobacco: Former Smoker
Alcohol: None
Family History
Family History: Not pertinent
Allergies / Home Medications
Allergies reflects when Allergies were last updated in [facility].
Home Medications with original date entered in [facility]
Allergy/Medication List:
Allergies
Allergy/AdvReac Type Severity Reaction Status Date / Time
Penicillins Allergy Unknown Verified 03/15/24 15:23
Home Medications
aspirin 81 mg tablet,delayed release 81 mg PO DAILY ##0 10/22/12
albuterol sulfate 90 mcg/actuation aerosol inhaler 2 puff inhalation R Q4 PRN sob/wheeze 01/05/14
Medical Marijuana 1 dose PO HSPRN PRN anxiety/sleep 02/09/23
alprazolam 0.25 mg tablet 0.125 - 0.25 mg PO DAILYPRN PRN anxiety 02/09/23
cetirizine 10 mg tablet (Zyrtec) 10 mg PO DAILYPRN PRN allergies 02/09/23
fluticasone propionate 50 mcg/actuation nasal spray,suspension 1 spray intranasal DAILYPRN PRN allergies 02/09/23
glycopyrrolate 9 mcg-formoterol 4.8 mcg HFA aerosol inhaler (Bevespi Aerosphere) 2 puff inhalation R BID 02/09/23
montelukast 10 mg tablet 10 mg PO QPM 02/09/23
nitroglycerin 0.4 mg sublingual tablet (Nitrostat) 0.4 mg sublingual [id number] PRN chest pain 02/09/23
rosuvastatin 10 mg tablet 10 mg PO QPM 12/29/23
sotorasib 320 mg tablet (Lumakras) 640 mg PO DAILY@1230 12/29/23
amlodipine 10 mg tablet 10 mg PO DAILY 03/15/24
lisinopril 2.5 mg tablet 2.5 mg PO DAILY 03/15/24
metformin 500 mg tablet 500 mg PO BID 03/15/24
metoprolol tartrate 100 mg tablet 100 mg PO BID 03/15/24
Review of Systems
-
A 12 point ROS was completed and negative except as noted: Yes
Constitutional: Denies Fever
Respiratory: Denies Cough or Trouble Breathing
Cardiac: Denies Chest Pain or Palpitations
Abdomen/GI: Reports See HPI
Physical Exam
Vital Signs
Vital Signs
Temp Pulse Resp BP Pulse Ox
97.7 F 85 16 167/83 96
03/15/24 15:23 03/15/24 15:23 03/15/24 15:23 03/15/24 15:23 03/15/24 15:23
Physical Exam
General: Comfortable and Conversant
HEENT: Anicteric and Moist mucous membranes
Respiratory: Clear and Non Labored Respirations
Cardiac: S1/S2 and Regular Rhythm
GI: Soft and Tender (Mild Epigastric; Moderate Right Upper Quadrant)
Rectal: Deferred by Provider
Musculoskeletal: No Clubbing, No Cyanosis and No Edema
Skin: Warm and Dry
Neuro: Awake, Alert, Oriented and Nonfocal/grossly intact
Psych: Calm
Laboratory Results
-
03/15/24 15:27
03/15/24 15:27
Laboratory Results
Total Bilirubin 1.0 mg/dl (0.2-1.3) 03/15/24 15:27
AST 19 U/L (14-36) 03/15/24 15:
ALT 11 U/L (0-35) 03/15/24 15:
Alkaline Phosphatase 91 U/L (38-126) 03/15/24 15:27
Lipase 3239 U/L (23-300) H* 03/15/24 15:27
Data Reviewed
-
Lab Data: Labs Reviewed by me
Old Records: Reviewed
Impression/Plan
-
Acute Pancreatitis
-Check Abd US
-Continue NPO/IVFs
-Consider GI Consult
Lung Adenocarcinoma s/p Chemotherapy
-Patient receiving Lumakras as outpatient
COPD
-Continue Bevespi
Diabetes Mellitus, Type II
-Hold metformin
-Monitor sugars and continue coverage insulin
Essential Hypertension
-Continue amlodipine and lisinopril with hold parameters
Hyperlipidemia
-Hold statin
DVT proph: Lovenox
Code Status: DNR
[2024-03-15 20:59] LABS: Glucose - Point of Care 98 mg/dl (70-99)
[2024-03-15 21:00] VITALS: BMI 24.1
[2024-03-15 21:01] VITALS: BP 129/70
--- NOTE | 2024-03-15 21:20 | PTCARENOTE ---
Patient admitted from ED. Patient AAO x3, on RA, in no acute distress. Patient oriented to room and call rodgers is within reach.
--- NOTE | 2024-03-15 21:52 | W.PN.UPDATE ---
Update Note
Progress Note Update
This is an addendum to the H&P written by Isamar Huitron on 03/15/2024. Patient seen and examined independently with PA.
73-year-old female past medical history of adenocarcinoma of the lung on Lumakras, COPD, aortic angina, hypertension, hyperlipidemia, type 2 diabetes, presenting with right upper quadrant abdominal pain with radiation to the back. Lipase level of
3000 consistent with acute pancreatitis unclear etiology.
No alcohol use or history of biliary disease. Liver enzymes normal. N.p.o., IV fluids, pain control, nausea control. Check triglycerides. Liver ultrasound shows findings compatible with fundal adenomyomatosis, possible pseudocyst or abscess. GI
consulted.
[2024-03-15] MEDS: TYLENOL 650 MG PO (21:54)
[2024-03-15] MEDS: LOPRESSOR 100 MG PO (21:54)
[2024-03-15] MEDS: NSS 1000 IV (21:54)
[2024-03-15 23:51] VITALS: BP 118/57
[2024-03-16 01:21] LABS: Glucose - Point of Care 81 mg/dl (70-99)
[2024-03-16] MEDS: NSS 1000 IV (04:07)
[2024-03-16 05:55] VITALS: BMI 23.4
[2024-03-16 06:00] VITALS: BMI 23.4
[2024-03-16 06:05] LABS: Hematocrit 32.9 % (37.0-47.0); Mean Corp Hgb Conc. 33.4 g/dL (33.0-37.0); Mean Corpuscular Hgb 28.6 pg (27.0-31.0); Mean Corpuscular Volume 85.7 fL (81.0-99.0); Mean Platelet Volume 8.7 fL (7.4-10.4); Platelet Count 253 10^3/uL (130-400); Red Blood Cell Count 3.84 10^6/uL (4.20-5.40); Red Cell Dist. Width 13.5 % (11.5-14.5)
[2024-03-16 06:15] LABS: Glucose - Point of Care 76 mg/dl (70-99)
[2024-03-16 06:27] LABS: Blood Urea Nitrogen 8 mg/dl (7-17); Calcium 8.5 mg/dl (8.4-10.2); Carbon Dioxide 22 mmol/L (22-30); Chloride 105 mmol/L (98-107); Estimated Creatinine Clearance 62 ml/min; Glucose 76 mg/dl (70-99); Magnesium 1.7 mg/dl (1.6-2.3); Potassium 4.3 mmol/L (3.5-5.1); Sodium 138 mmol/L (135-145); Triglycerides 136 mg/dl (10-149); eGFR > 60.00
[2024-03-16 06:52] LABS: Lipase 3828 U/L (23-300)
[2024-03-16 08:07] VITALS: BP 110/66
[2024-03-16] MEDS: SPIRIVA RESPIMAT 2.5 MCG 2 PUFF INH (08:14)
[2024-03-16] MEDS: STRIVERDI RESPIMAT 2 PUFF INH (08:15)
[2024-03-16 08:48] LABS: Glycohemoglobin (HgbA1c) 5.8 % (4.0-5.6)
[2024-03-16] MEDS: NOVOLOG FLEXPEN-LOW RESISTANCE SC ×3 (09:07→18:14)
[2024-03-16] MEDS: LOPRESSOR 100 MG PO ×2 (09:12→20:41)
[2024-03-16] MEDS: ZESTRIL 2.5 MG PO (09:12)
[2024-03-16] MEDS: ASPIR LOW (ENTERIC COATED) 81 MG PO (09:12)
[2024-03-16] MEDS: NORVASC PO (09:13)
--- NOTE | 2024-03-16 09:27 | W.PN.HOSP.TC ---
Addendum entered and electronically signed by Hollis Ruby DO 03/16/24 13:04:
Correction: Large thoracic aortic aneurysm involving the distal descending thoracic aorta, noted on CT scan in December, 5.6 x 7.1 x 6.3 cm, patient declined surgery at the time. Mild fusiform abdominal aortic aneurysm, 2.5 cm, infrarenal.
Original Note:
Today's Communication/Plan
-
Continue IV fluids
N.p.o.
GI consult
Assessment / Plan
Assessment / Plan
Gen-AAOx3, NAD
HEENT-NC, AT, anicteric, clear oral mm
Neck-supple
CV-reg, no M, +S1/S2
Lungs-clear B/L
Abd-soft, mild distention, mild epigastric tenderness
Ext-no edema
Musculoskeletal-no cyanosis, clubbing
Skin-warm and dry
Neuro-grossly non-focal
Psych-calm, cooperative
Acute pancreatitis -unclear etiology. Change IV fluids to lactated Ringer's and reduce rate. NPO. Triglyceride normal. Ultrasound shows hypoechoic focus within the head of the pancreas, possibly representing focal area of pancreatitis, also
possibly representing pseudocyst versus abscess. Of note she had a CT of the abdomen in December of this year with IV contrast, pancreas was noted to be normal. Await GI input.
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 No gallstones noted.
Hyponatremia -likely hypovolemic. Improved with IV fluids.
Abdominal aortic aneurysm -admitted to [facility] in December. Decision was made to treat conservatively, patient was offered surgery at that time but she refused. Wanted to be treated conservatively.
DM2 without hyperglycemia -on metformin. A1c controlled.
Lung adenocarcinoma
COPD without exacerbation
Essential hypertension -stable.
Hyperlipidemia -on rosuvastatin.
Anxiety disorder
DNR
Anticipated Discharge: > 48 hours
Subjective/Interval History
-
Date of Service: March 16, 2024
Patient seen and examined. Complaining of abdominal bloating. Denies pain.
Objective Data
-
Labs:
Laboratory Results
03/16/24
05:54
WBC 5.0
Hgb 11.0 L
Hct 32.9 L
Plt Count 253
Sodium 138
Potassium 4.3
Chloride 105
Carbon Dioxide 22
BUN 8
Creatinine 0.4 L
Glucose 76
Calcium 8.5
Vital Signs:
Vital Signs
Temp Pulse Resp BP Pulse Ox
97.9 F 86 16 110/66 97
03/16/24 08:07 03/16/24 09:13 03/16/24 08:20 03/16/24 09:13 03/16/24 08:20
I&O
03/15/24 03/16/24 03/17/24
06:59 06:59 06:59
Intake Total 1250 / 1250
Balance 1250 / 1250
Review of Systems
-
History Source: Patient
All other systems: Reviewed and negative
[2024-03-16] MEDS: LR 1000 IV ×2 (09:52→20:42)
--- NOTE | 2024-03-16 10:29 | CON.GI ---
Addendum entered and electronically signed by Honey Loving DO 03/16/24 11:52:
The patient was seen and examined by me independently in collaboration with the nurse practitioner.
Past medical history/social history/medications/allergies/family history reviewed.
Lab data and imaging data reviewed.
Quyen Islas is a 73-year-old female past medical history of adenocarcinoma of the lung on Lumakras, COPD, hypertension, hyperlipidemia, type 2 diabetes who presented to the hospital with right upper quadrant abdominal pain with radiation to the
back, nausea and vomiting found to have elevated lipase consistent with acute pancreatitis.
Abdominal ultrasound 03/15/2024: Likely gallbladder fundal adenomyomatosis, similar in appearance to ultrasound in December as well as CT in March 2022. Within the head of the pancreas there is an ovoid focus of decreased echogenicity with no
internal color flow, measuring 2.5 x 2.8 x 3 cm. This appears to be a new finding compared to prior imaging. This likely represents a focal area of pancreatitis, possibly developing pseudocyst or abscess.
Abdominal ultrasound 12/30/2023: Small complex mass at the fundus of the gallbladder, this may be tumefactive sludge. There is a small hypoechoic mass superior to the pancreatic head measuring 1.1 x 0.6 x 1.3 cm probably a peripancreatic node. The
pancreas is normal in size and echogenicity and shows no focal mass or calcification.
#RUQ pain, elevated Lipase, focal pancreatitis on imaging meets 3/3 diagnostic criteria for acute pancreatitis--etiology unclear at this time
-Given multiple recent imaging studies, including a PET in October 2023, this is very unlikely to represent malignancy, however, ++strong family history of pancreatic ca; will discuss with radiology if this could have been seen on December US, described
as a LN superior to the pancreatic head
-t/c MRI/MRCP-- patient not a candidate for surgery given thoracic aortic aneurysm measuring 7.1 cm
-check IgG4
-check triglycerides
-unable to find evidence that this could be a side-effect from chemotherapy agent...
-IVF, ADAT, analgesia, antiemetics
Original Note:
Consultation
-
Date/Time Consultation Requested: 03/15/242208
Date/Time Consultation Performed: 03/16/24 1029
Requesting Provider: CASSIE Fleming
Performing Provider: Dr. Loving/YASSINE Salazar
Reason for Consultation: abd pain, pancreatitis
Medical History
Chief Complaint / HPI
Chief Complaint: Abdominal pain
History of Present Illness:
73-year-old female with past medical history of lung adenocarcinoma, On chemotherapy, thoracic aortic aneurysm, hypertension, hyperlipidemia, diabetes, pneumonia presents to the emergency room with acute abdominal pain. Asked to evaluate for
pancreatitis. The patient states that on Monday she started to develop right upper quadrant discomfort. She states that this is dull, constant, nonradiating associated with nausea and anorexia, she did not feel as if she wanted to eat however if
she did eat this did not make the pain better or worse. Because of persistence she came to the emergency room for further evaluation.When she came to the emergency room she was found to have a white count of 7.0, hemoglobin 12.5, hematocrit 37.6
and platelet count of 299 sodium 131, potassium 4.4, chloride 92, CO2 20, BUN 11, creatinine 0.5, glucose 98, calcium 9.2, magnesium 1.7, total bilirubin 1.0, AST 19, ALT 11, alk phos 91, albumin 4.5, triglycerides 136, lipase initially 3239 which
have increased to 3828. She had an ultrasound of the abdomen performed that shows a focus of heterogeneous echogenicity within the fundus of the gallbladder. This correlates to prior exams, this is compatible with fundal adenomyomatosis. No
gallstones were identified. Hypoechoic focus within the head of the pancreas, no internal color flow. Given clinical history this is probably a focal area of pancreatitis, and possibly representing a developing pseudocyst or abscess. Continued
follow-up is recommended by radiology. The patient does have recent change in medication with the addition of lisinopril 2.5 mg she states approximately 3 weeks ago. There have been no other changes in her medication except for of reduction in her
Lumakras a couple months ago. She does have a history of chronic constipation and has a bowel movement every 3 to 4 days. She utilizes dietary fiber in the form of prunes to facilitate bowel movements. She states she has not had a bowel movement
approximately 4 days. She has not had any vomiting. She is nauseous. She denies any fevers, chills, melena, hematochezia, dysphagia or dyne aphasia. No unintentional weight loss. She denies any acholic stools however she has not had a bowel
movement in 4 days. She denies any bilirubinuria. She denies any pruritus. She does not drink any alcohol. She does have a family history of pancreatic cancer that is significant. Her mother did pass away of pancreatic cancer. Her mother did
have 4 sisters who either of pancreatic cancer or breast cancer.
Past Medical History
Past Medical History: Cancer (Lung cancer), COPD, HTN, Hypercholesterolemia, NIDDM and Other (Pneumonia, thoracic aortic aneurysm)
Past Surgical History: Gynecological (Hysterectomy) and Other (Bilateral carpal tunnel repair, sinus surgery)
Social History
Tobacco: Former Smoker
Alcohol: None
Drug: None
Personal:
Living: With Family
Employment: Not Employed
Family History
Family History: Other (No family history of colon cancer or gastric cancer. Mother of pancreatic cancer in her 70s.Maternal aunts with either pancreatic or breast cancer. )
Allergies / Home Medications
Allergy/AdvReac Type Severity Reaction Status Date / Time
Penicillins Allergy Unknown Verified 03/15/24 15:23
�Medication �Instructions �Recorded
aspirin 81 mg tablet,delayed 81 mg PO DAILY ##0 10/22/12
release
albuterol sulfate 90 mcg/actuation 2 puff inhalation R Q4 PRN 01/05/14
aerosol inhaler sob/wheeze
Medical Marijuana 1 dose PO HSPRN PRN anxiety/sleep 02/09/23
alprazolam 0.25 mg tablet 0.125 - 0.25 mg PO DAILYPRN PRN 02/09/23
anxiety
cetirizine 10 mg tablet (Zyrtec) 10 mg PO DAILYPRN PRN allergies 02/09/23
fluticasone propionate 50 1 spray intranasal DAILYPRN PRN 02/09/23
mcg/actuation nasal allergies
spray,suspension
glycopyrrolate 9 mcg-formoterol 2 puff inhalation R BID 02/09/23
4.8 mcg HFA aerosol inhaler Lung/Breathing Issues
(Bevespi Aerosphere)
montelukast 10 mg tablet 10 mg PO QPM ASTHMA 02/09/23
nitroglycerin 0.4 mg sublingual 0.4 mg sublingual [id number] PRN 02/09/23
tablet (Nitrostat) chest pain
rosuvastatin 10 mg tablet 10 mg PO QPM High Cholesterol 12/29/23
sotorasib 320 mg tablet (Lumakras) 640 mg PO DAILY@1230 12/29/23
Antineoplastic Agent, KRA
amlodipine 10 mg tablet 10 mg PO DAILY Blood Pressure 03/15/24
lisinopril 2.5 mg tablet 2.5 mg PO DAILY Blood Pressure 03/15/24
metformin 500 mg tablet 500 mg PO BID Diabetes 03/15/24
metoprolol tartrate 100 mg tablet 100 mg PO BID Blood Pressure 03/15/24
Review of Systems
-
All other systems: A 12 pt ROS was Negative except as stated above in HPI
Vital Signs
Temp Pulse Resp BP Pulse Ox
97.9 F 86 16 110/66 97
03/16/24 08:07 03/16/24 09:13 03/16/24 08:20 03/16/24 09:13 03/16/24 08:20
Physical Exam
Exam
General: No Apparent Distress
HEENT: Anicteric
Respiratory: Clear (Anterior)
Cardiac: Regular Rhythm
GI: Soft, Non Distended, Normal Bowel Sounds and Tender (Right upper quadrant/periumbilical)
Musculoskeletal: No Edema
Skin: Warm and Dry
Neuro: AO x 3
Psych: Calm
Results
WBC 5.0 10^3/uL (4.8-10.8) 03/16/24 05:54
Hgb 11.0 g/dL (12.0-16.0) L 03/16/24 05:54
Hct 32.9 % (37.0-47.0) L 03/16/24 05:54
MCV 85.7 fL (81.0-99.0) 03/16/24 05:54
Plt Count 253 10^3/uL (130-400) 03/16/24 05:54
Absolute Neuts (auto) 4.9 10^3/uL (1.4-6.5) 03/15/24 15:27
Sodium 138 mmol/L (135-145) 03/16/24 05:54
Potassium 4.3 mmol/L (3.5-5.1) 03/16/24 05:54
Chloride 105 mmol/L (98-107) 03/16/24 05:54
Carbon Dioxide 22 mmol/L (22-30) 03/16/24 05:54
BUN 8 mg/dl (7-17) 03/16/24 05:54
Creatinine 0.4 mg/dL (0.6-1.0) L 03/16/24 05:54
Calcium 8.5 mg/dl (8.4-10.2) 03/16/24 05:54
Total Bilirubin 1.0 mg/dl (0.2-1.3) 03/15/24 15:27
AST 19 U/L (14-36) 03/15/24 15:27
ALT 11 U/L (0-35) 03/15/24 15:27
Alkaline Phosphatase 91 U/L (38-126) 03/15/24 15:27
Lipase 3828 U/L (23-300) H* 03/16/24 05:54
Diagnostic Image Results:
Ultrasound abdomen 03/15/24:
IMPRESSION:
Focus of heterogeneous echogenicity within the fundus of the gallbladder. Correlating with prior examinations, this is compatible with fundal adenomyomatosis. No gallstones are identified.
Hypoechoic focus within the head of the pancreas, with no internal color flow. Given the clinical history, this is probably a focal area of pancreatitis, and possibly representing a developing pseudocyst or abscess. Continued follow-up is
recommended.
US Abd 12/30/23:
Small complex mass at the fundus of the gallbladder. This may be tumefactive sludge but a mass such as malignancy cannot be excluded. Nonurgent MRCP recommended for better characterization.
Probable peripancreatic lymph node. Nonspecific.
CT Abd/Pelvis 12/29/23:
IMPRESSION:
1). Extensive calcific atherosclerotic changes with large saccular aneurysm along the right side of the distal descending thoracic aorta just above the aortic hiatus. This aneurysm measures approximately 5.6 x 7.1 x 6.3 cm and is slightly increased
in size when compared with the prior study at which time, it was measured at 5.3 x 7.1 x 5.8 cm. There is eccentric thrombus in the aneurysm.
2). Mild fusiform aneurysmal dilatation of the infrarenal abdominal aorta to 2.5 cm in diameter.
3). There is a small amount of ascites in the pelvis
4).Imaging for bowel pathology is limited by the lack of enteric contrast
Diverticuli are present in the colon with no CT evidence of diverticulitis
5). Multilevel degenerative disc disease
Electronically signed by Abraham Batista MD, 12/29/2023 2:53 PM
Prior GI Procedures:
EGD: never
Colonoscopy: Approximately 10 years ago. Does not recall results. Not at this institution.
Assessment / Plan
-
73-year-old female with past medical history of lung adenocarcinoma, On chemotherapy, thoracic aortic aneurysm 7.1 cm, hypertension, hyperlipidemia, diabetes, pneumonia presents to the emergency room with acute abdominal pain. Asked to evaluate for
pancreatitis. Patient with pain and lipase suggesting pancreatitis. Recent change in medication, lisinopril added a couple weeks ago. Triglycerides normal. Significant family history of pancreatic cancer. US in December with 1.1x 0.6 x 1.3 cm
hypoechoic mass superior to pancreatic head felt to be probable lymph node. Had CT of abd/pelvis with IV contrast performed in December 2023 for abdominal discomfort mildly elevated liver enzymes. Pancreas was normal at that time. Normal liver enzymes
at present time. No gallstones seen. Still mildly tender on exam. Lipase trending up slightly. Currently US abd showing within the head of the pancreas, there is an ovoid focus of decreased echogenicity with no internal color flow, and this
measures 2.5 x 2.8 x 3.0 cm. This appears to be a new finding compared to CT examination of December 29, 2023 and ultrasound examination of December 30, 2023.
Impression:
Pancreatitis, unknown etiology. No gallstones seen on US. Normal Trig. New Lisinopril however needed secondary to Thoracic aneurysm.
Lung Adenocarcinoma
Thoracic aortic aneurysm 7.1 cm
Chronic constipation
Plan:
-Continue IVF
-Check IgG4, Check Ca 19-9
-Incentive spirometer
-Analgesia
-Miralax for bowel regimen
-CBC, LFTs, Lipase in am
-To consider MRI/MRCP to further evaluate.
-Further recommendations to be forthcoming.
-
-
Thank you for consultation and allowing me to participate in the patient's care. Please call the accounting consultant GI physician during the after hours with any questions or concerns.
[2024-03-16 12:43] LABS: Glucose - Point of Care 73 mg/dl (70-99)
--- NOTE | 2024-03-16 13:37 | CM ---
Met patient in room.
Patient lives in a multilevel home w/ her , son, and 6 yr old grandson; 1 step to enter; powder room on the 1st floor; full bath and bedroom on the 2nd floor; plans to put a bed in her dining room
PLOF: reports that she has been independent with ambulation and ADLs.
She is not current with any home care agency.
SNF utilization history: none
Transportation: Son will provide ride home:
Pharmacy: [facility]
PCP: Dr. Sommer Pedraza
PLan: HOme no needs
[2024-03-16 15:00] VITALS: BP 112/62
[2024-03-16] MEDS: LOVENOX 40 MG SC (17:09)
[2024-03-16] MEDS: SINGULAIR 10 MG PO (17:09)
[2024-03-16] MEDS: TYLENOL 650 MG PO (17:09)
[2024-03-16 18:10] LABS: Glucose - Point of Care 58 mg/dl (70-99)
--- NOTE | 2024-03-16 18:17 | PTCARENOTE ---
notified of 58 BS for Quyen. Pt is NPO will give D50 and ressess BS in 15 minutes.
[2024-03-16] MEDS: DEXTROSE 50% SYRINGE 12.5 GRAMS IV ×2 (18:19→23:09)
[2024-03-16 18:52] LABS: Glucose - Point of Care 137 mg/dl (70-99)
[2024-03-16 20:56] LABS: Glucose - Point of Care 87 mg/dl (70-99)
[2024-03-16 22:53] LABS: Glucose - Point of Care 63 mg/dl (70-99)
[2024-03-16 23:38] VITALS: BP 137/61
[2024-03-16 23:46] LABS: Glucose - Point of Care 282 mg/dl (70-99)
--- NOTE | 2024-03-16 23:49 | PTCARENOTE ---
Patient BS 63. Patient is NPO. Patient given IV dextrose. Reassessed 15 minutes later - BS 282. Patient is asymptomatic. Will continue to monitor.
[2024-03-17 04:19] LABS: Glucose - Point of Care 80 mg/dl (70-99)
[2024-03-17 04:23] LABS: % Basophils 0.2 % (0-2); % Immature Granulocytes 0.2 % (0-0.5); % Lymphocytes 10.3 % (20.5-51.1); % Monocytes 13.3 % (1.7-9.3); Absolute Eosinophils 0.1 10^3/uL (0-0.7); Absolute Lymphocytes 0.6 10^3/uL (1.2-3.4); Absolute Monocytes 0.7 10^3/uL (0.1-0.6); Hematocrit 32.8 % (37.0-47.0); Hemoglobin 11.1 g/dL (12.0-16.0); Mean Corp Hgb Conc. 33.8 g/dL (33.0-37.0); Mean Corpuscular Hgb 28.5 pg (27.0-31.0); Mean Corpuscular Volume 84.3 fL (81.0-99.0); Mean Platelet Volume 8.6 fL (7.4-10.4); Nucleated Red Blood Cells % 0 %; Platelet Count 267 10^3/uL (130-400); Red Blood Cell Count 3.89 10^6/uL (4.20-5.40); Red Cell Dist. Width 13.2 % (11.5-14.5); White Blood Cell Count 5.4 10^3/uL (4.8-10.8)
[2024-03-17 04:49] LABS: ALT (SGPT) 13 U/L (0-35); AST (SGOT) 25 U/L (14-36); Albumin 3.7 g/dl (3.5-5.0); Alkaline Phosphatase 128 U/L (38-126); Blood Urea Nitrogen 7 mg/dl (7-17); Calcium 8.9 mg/dl (8.4-10.2); Carbon Dioxide 21 mmol/L (22-30); Chloride 102 mmol/L (98-107); Estimated Creatinine Clearance 62 ml/min; Glucose 88 mg/dl (70-99); Potassium 4.3 mmol/L (3.5-5.1); Sodium 136 mmol/L (135-145); Total Bilirubin 0.6 mg/dl (0.2-1.3); eGFR > 60.00
[2024-03-17 05:07] LABS: Lipase 2702 U/L (23-300)
[2024-03-17 06:00] VITALS: BMI 23.6
[2024-03-17 06:01] LABS: Glucose - Point of Care 114 mg/dl (70-99)
[2024-03-17] MEDS: SPIRIVA RESPIMAT 2.5 MCG 2 PUFF INH (07:08)
[2024-03-17] MEDS: STRIVERDI RESPIMAT 2 PUFF INH (07:08)
[2024-03-17] MEDS: ProAIR HFA INHALER 2 PUFF INH (07:15)
[2024-03-17] MEDS: NOVOLOG FLEXPEN-LOW RESISTANCE SC ×3 (07:34→18:18)
[2024-03-17] MEDS: LOPRESSOR 100 MG PO ×2 (07:44→20:21)
[2024-03-17] MEDS: ZESTRIL 2.5 MG PO (07:44)
[2024-03-17] MEDS: ASPIR LOW (ENTERIC COATED) 81 MG PO (07:44)
[2024-03-17] MEDS: NORVASC 10 MG PO (07:44)
[2024-03-17 07:55] VITALS: BP 165/81
[2024-03-17] MEDS: DILAUDID 0.25 MG IV (08:01)
[2024-03-17 08:56] LABS: Glucose - Point of Care 137 mg/dl (70-99)
--- NOTE | 2024-03-17 09:18 | W.PN.GI.CBS2 ---
Today's Communication / Plan
-
Pain control. MRI
Assessment / Plan
-
Quyen Islas is a 73-year-old female past medical history of adenocarcinoma of the lung on Lumakras, COPD, hypertension, hyperlipidemia, type 2 diabetes who presented to the hospital with right upper quadrant abdominal pain with radiation to the
back, nausea and vomiting found to have elevated lipase consistent with acute pancreatitis.
Abdominal ultrasound 03/15/2024: Likely gallbladder fundal adenomyomatosis, similar in appearance to ultrasound in December as well as CT in March 2022. Within the head of the pancreas there is an ovoid focus of decreased echogenicity with no
internal color flow, measuring 2.5 x 2.8 x 3 cm. This appears to be a new finding compared to prior imaging. This likely represents a focal area of pancreatitis, possibly developing pseudocyst or abscess.
Abdominal ultrasound 12/30/2023: Small complex mass at the fundus of the gallbladder, this may be tumefactive sludge. There is a small hypoechoic mass superior to the pancreatic head measuring 1.1 x 0.6 x 1.3 cm probably a peripancreatic node. The
pancreas is normal in size and echogenicity and shows no focal mass or calcification.
#RUQ pain, elevated Lipase, focal pancreatitis on imaging meets 3/3 diagnostic criteria for acute pancreatitis--etiology unclear at this time
-Given multiple recent imaging studies, including a PET in October 2023, this is very unlikely to represent malignancy, however, ++strong family history of pancreatic ca; after lengthy discussion with patient, she would like to proceed with MRI
-Lipase 3239 --> 3828 --> 2702
-IgG4 pending
-triglycerides 136
-unable to find evidence that this could be a side-effect from chemotherapy agent...
-IVF, ADAT, analgesia, antiemetics
Subjective
Subjective
Date of Service: March 17, 2024
Patient seen in follow-up. Reports she is still in a tremendous amount of pain, she was unaware she could ask to receive her pain meds, so had not been receiving her prn doses. Discussed MRI/MRCP at length, and she very much would like to proceed.
Objective
Data Reviewed
Laboratory Data:
Laboratory Results
03/17/24 04:14
03/17/24 04:14
Laboratory Results
Magnesium 1.7 mg/dl (1.6-2.3) 03/16/24 05:54
Total Bilirubin 0.6 mg/dl (0.2-1.3) 03/17/24 04:14
AST 25 U/L (14-36) 03/17/24 04:14
ALT 13 U/L (0-35) 03/17/24 04:14
Alkaline Phosphatase 128 U/L (38-126) H 03/17/24 04:14
Lipase 2702 U/L (23-300) H* 03/17/24 04:14
Vital Signs and I&O:
Vital Signs
Temp Pulse Resp BP Pulse Ox
98.0 F 94 20 165/81 95
03/17/24 07:55 03/17/24 07:55 03/17/24 07:55 03/17/24 07:55 03/17/24 07:55
I&O
03/16/24 03/17/24 03/18/24
06:59 06:59 06:59
Intake Total 1250 / 1250
Balance 1250 / 1250
Physical Exam
Physical Exam
HEENT: Anicteric and Moist mucous membranes
GI: Soft, Non Distended, Tender (TTP in RUQ and epigastrium with voluntary guarding) and Normal Bowel Sounds
--- NOTE | 2024-03-17 10:05 | W.PN.HOSP.TC ---
Today's Communication/Plan
-
MRCP
Assessment / Plan
Assessment / Plan
Gen-AAOx3, NAD
HEENT-NC, AT, anicteric, clear oral mm
Neck-supple
CV-reg, no M, +S1/S2
Lungs-clear B/L
Abd-soft, mild distention, mild epigastric tenderness
Ext-no edema
Musculoskeletal-no cyanosis, clubbing
Skin-warm and dry
Neuro-grossly non-focal
Psych-calm, cooperative
Acute pancreatitis -unclear etiology. Triglyceride normal. IgG4 pending. Ultrasound shows hypoechoic focus within the head of the pancreas, possibly representing focal area of pancreatitis, also possibly representing pseudocyst versus abscess.
Of note she had a CT of the abdomen in December of this year with IV contrast, pancreas was noted to be normal. Clear liquid diet ordered.
MRCP pending.
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 No gallstones noted.
Hyponatremia -likely hypovolemic. Improved with IV fluids.
Thoracic aortic aneurysm -admitted to [facility] in December. Decision was made to treat conservatively, patient was offered surgery at that time but she refused. Wanted to be treated conservatively.
DM2 without hyperglycemia -on metformin. A1c controlled.
Lung adenocarcinoma
COPD without exacerbation
Essential hypertension -stable.
Hyperlipidemia -on rosuvastatin.
Anxiety disorder
DNR
Anticipated Discharge: > 48 hours
Subjective/Interval History
-
Date of Service: March 17, 2024
Patient seen and examined. No complaints.
Objective Data
-
Labs:
Laboratory Results
03/17/24
04:14
WBC 5.4
Hgb 11.1 L
Hct 32.8 L
Plt Count 267
Sodium 136
Potassium 4.3
Chloride 102
Carbon Dioxide 21 L
BUN 7
Creatinine 0.4 L
Glucose 88
Calcium 8.9
Total Bilirubin 0.6
AST 25
ALT 13
Alkaline Phosphatase 128 H
Vital Signs:
Vital Signs
Temp Pulse Resp BP Pulse Ox
98.0 F 94 20 165/81 95
03/17/24 07:55 03/17/24 07:55 03/17/24 07:55 03/17/24 07:55 03/17/24 07:55
I&O
03/16/24 03/17/24 03/18/24
06:59 06:59 06:59
Intake Total 1250 / 1250
Balance 1250 / 1250
Review of Systems
-
History Source: Patient
All other systems: Reviewed and negative
--- NOTE | 2024-03-17 11:00 | CM ---
Patient seen at bedside. Patient now with liquid diet and indicated that she does plan for discharge home with no needs. IMM form explained and provided for patient to review. CM will continue to follow for discharge planning needs.
Plan; home with no needs anticipated
[2024-03-17 12:28] LABS: Glucose - Point of Care 117 mg/dl (70-99)
[2024-03-17] MEDS: DILAUDID 0.5 MG IV (12:35)
[2024-03-17 15:00] VITALS: BP 136/64
[2024-03-17] MEDS: ZOFRAN 4 MG IV ×2 (15:41→21:18)
[2024-03-17] MEDS: LOVENOX SC (17:10)
[2024-03-17] MEDS: SINGULAIR 10 MG PO (17:10)
[2024-03-17 18:18] LABS: Glucose - Point of Care 114 mg/dl (70-99)
[2024-03-17] MEDS: TYLENOL 650 MG PO (18:18)
[2024-03-17 21:18] LABS: Glucose - Point of Care 126 mg/dl (70-99)
[2024-03-17 23:09] VITALS: BP 142/55
[2024-03-18 07:20] VITALS: BP 137/63
[2024-03-18 07:20] LABS: Glucose - Point of Care 119 mg/dl (70-99)
[2024-03-18] MEDS: STRIVERDI RESPIMAT 2 PUFF INH (08:03)
[2024-03-18] MEDS: SPIRIVA RESPIMAT 2.5 MCG 2 PUFF INH (08:03)
[2024-03-18] MEDS: DILAUDID 0.5 MG IV (08:12)
[2024-03-18] MEDS: NOVOLOG FLEXPEN-LOW RESISTANCE SC ×3 (08:14→17:55)
[2024-03-18] MEDS: LOPRESSOR 100 MG PO ×2 (08:14→20:43)
[2024-03-18] MEDS: ASPIR LOW (ENTERIC COATED) 81 MG PO (08:14)
[2024-03-18] MEDS: NORVASC 10 MG PO (08:14)
[2024-03-18] MEDS: ZESTRIL 2.5 MG PO (08:14)
--- NOTE | 2024-03-18 11:48 | W.PN.GI.CBS2 ---
Today's Communication / Plan
-
Pain control, bowel regimen, ADAT, MRI today
Assessment / Plan
-
Quyen Islas is a 73-year-old female past medical history of adenocarcinoma of the lung on Lumakras, COPD, hypertension, hyperlipidemia, type 2 diabetes who presented to the hospital with right upper quadrant abdominal pain with radiation to the
back, nausea and vomiting found to have elevated lipase consistent with acute pancreatitis.
Abdominal ultrasound 03/15/2024: Likely gallbladder fundal adenomyomatosis, similar in appearance to ultrasound in December as well as CT in March 2022. Within the head of the pancreas there is an ovoid focus of decreased echogenicity with no
internal color flow, measuring 2.5 x 2.8 x 3 cm. This appears to be a new finding compared to prior imaging. This likely represents a focal area of pancreatitis, possibly developing pseudocyst or abscess.
Abdominal ultrasound 12/30/2023: Small complex mass at the fundus of the gallbladder, this may be tumefactive sludge. There is a small hypoechoic mass superior to the pancreatic head measuring 1.1 x 0.6 x 1.3 cm probably a peripancreatic node. The
pancreas is normal in size and echogenicity and shows no focal mass or calcification.
#RUQ pain, elevated Lipase, focal pancreatitis on imaging meets 3/3 diagnostic criteria for acute pancreatitis--etiology unclear at this time
-Given multiple recent imaging studies, including a PET in October 2023, this is very unlikely to represent malignancy, however, ++strong family history of pancreatic ca; after lengthy discussion with patient, she would like to proceed with MRI.
Pending MRI today.
-Lipase 3239 --> 3828 --> 2702
-IgG4 pending
-triglycerides 136
-unlikely 2/2 chemotherapy agent
-IVF, ADAT, analgesia, antiemetics
Subjective
Subjective
Date of Service: March 18, 2024
Patient seen in follow-up, still reports significant pain. When she receives a dose of pain medication, it does adequately control the pain, but feels it wears off quickly.
Objective
Data Reviewed
Laboratory Data:
Laboratory Results
03/17/24 04:14
03/17/24 04:14
Laboratory Results
Magnesium 1.7 mg/dl (1.6-2.3) 03/16/24 05:54
Total Bilirubin 0.6 mg/dl (0.2-1.3) 03/17/24 04:14
AST 25 U/L (14-36) 03/17/24 04:14
ALT 13 U/L (0-35) 03/17/24 04:14
Alkaline Phosphatase 128 U/L (38-126) H 03/17/24 04:14
Lipase 2702 U/L (23-300) H* 03/17/24 04:14
Vital Signs and I&O:
Vital Signs
Temp Pulse Resp BP Pulse Ox
98.0 F 76 16 137/63 95
03/18/24 07:20 03/18/24 08:07 03/18/24 08:07 03/18/24 07:20 03/18/24 10:33
I&O
03/17/24 03/18/24 03/19/24
06:59 06:59 06:59
Intake Total 600 / 600
Balance 600 / 600
Physical Exam
Physical Exam
HEENT: Anicteric and Moist mucous membranes
GI: Soft, Non Distended, Tender (TTP in RUQ and epigastrium with voluntary guarding) and Normal Bowel Sounds
[2024-03-18 11:52] LABS: Glucose - Point of Care 111 mg/dl (70-99)
--- NOTE | 2024-03-18 14:11 | W.PN.HOSP.TC ---
Today's Communication/Plan
-
.
Assessment / Plan
Assessment / Plan
NAD, resting comfortably in bed
Scleral anicteric
Moist mucous membranes
No JVD
CTA bilateral
Normal S1-S2 no murmurs
Soft right epigastric lower quadrant pain, nondistended bowel sounds active
No peripheral pitting edema
Moves extremities spontaneously
AAOx3
Acute pancreatitis -unclear etiology. Triglyceride normal. IgG4 pending. Ultrasound shows hypoechoic focus within the head of the pancreas, possibly representing focal area of pancreatitis, also possibly representing pseudocyst versus abscess.
Of note she had a CT of the abdomen in December of this year with IV contrast, pancreas was noted to be normal. Clear liquid diet ordered. N.p.o. prior to MRCP.
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 No gallstones noted.
Hyponatremia -likely hypovolemic. Improved with IV fluids.
Thoracic aortic aneurysm -admitted to [facility] in December. Decision was made to treat conservatively, patient was offered surgery at that time but she refused. Wanted to be treated conservatively.
DM2 without hyperglycemia -on metformin. A1c controlled.
Lung adenocarcinoma
COPD without exacerbation
Essential hypertension -stable.
Hyperlipidemia -on rosuvastatin.
Anxiety disorder
DNR
Anticipated Discharge: 24 - 48 hours
Subjective/Interval History
-
Date of Service: March 18, 2024
Seen and examined. Was laying on her abdomen on I first saw her. States when she turns over onto her back pain increases at that time.
Otherwise no new complaints or overnight events
Objective Data
-
Vital Signs:
Vital Signs
Temp Pulse Resp BP Pulse Ox
98.0 F 76 16 137/63 95
03/18/24 07:20 03/18/24 08:07 03/18/24 08:07 03/18/24 07:20 03/18/24 10:33
I&O
03/17/24 03/18/24 03/19/24
06:59 06:59 06:59
Intake Total 600 / 600
Balance 600 / 600
[2024-03-18 15:35] VITALS: BP 125/66
[2024-03-18 17:15] LABS: Glucose - Point of Care 86 mg/dl (70-99)
[2024-03-18] MEDS: LOVENOX 40 MG SC (18:02)
[2024-03-18] MEDS: SINGULAIR 10 MG PO (18:02)
[2024-03-18] MEDS: DILAUDID IV (20:58)
[2024-03-18] MEDS: DILAUDID 0.25 MG IV ×2 (21:09→22:58)
[2024-03-18 21:11] LABS: Glucose - Point of Care 163 mg/dl (70-99)
[2024-03-18 21:52] LABS: CA 19-9 50 U/mL (<=35)
[2024-03-18 23:25] VITALS: BP 131/60
[2024-03-19 00:56] LABS: IgG Subclass 4 16 mg/dL (1-123)
[2024-03-19 06:00] VITALS: BMI 23.1
[2024-03-19 06:59] LABS: Blood Urea Nitrogen 10 mg/dl (7-17); Calcium 8.9 mg/dl (8.4-10.2); Carbon Dioxide 23 mmol/L (22-30); Chloride 99 mmol/L (98-107); Estimated Creatinine Clearance 62 ml/min; Glucose 111 mg/dl (70-99); Potassium 4.2 mmol/L (3.5-5.1); Sodium 134 mmol/L (135-145); eGFR > 60.00
[2024-03-19 07:21] LABS: Glucose - Point of Care 175 mg/dl (70-99)
[2024-03-19 07:35] VITALS: BP 130/73
[2024-03-19] MEDS: SPIRIVA RESPIMAT 2.5 MCG 2 PUFF INH (08:09)
[2024-03-19] MEDS: STRIVERDI RESPIMAT 2 PUFF INH (08:10)
[2024-03-19] MEDS: NOVOLOG FLEXPEN-LOW RESISTANCE SC ×2 (08:32→12:43)
[2024-03-19] MEDS: ZESTRIL 2.5 MG PO (08:33)
[2024-03-19] MEDS: ASPIR LOW (ENTERIC COATED) 81 MG PO (08:33)
[2024-03-19] MEDS: LOPRESSOR 100 MG PO ×2 (08:33→19:54)
[2024-03-19] MEDS: NORVASC 10 MG PO (08:33)
[2024-03-19] MEDS: DILAUDID 0.25 MG IV ×2 (08:40→19:55)
--- NOTE | 2024-03-19 09:52 | W.PN.GI.CBS2 ---
Today's Communication / Plan
-
Clinically improving. MRI pending
Assessment / Plan
-
Quyen Islas is a 73-year-old female past medical history of adenocarcinoma of the lung on Lumakras, COPD, hypertension, hyperlipidemia, type 2 diabetes who presented to the hospital with right upper quadrant abdominal pain with radiation to the
back, nausea and vomiting found to have elevated lipase consistent with acute pancreatitis.
Abdominal ultrasound 03/15/2024: Likely gallbladder fundal adenomyomatosis, similar in appearance to ultrasound in December as well as CT in March 2022. Within the head of the pancreas there is an ovoid focus of decreased echogenicity with no
internal color flow, measuring 2.5 x 2.8 x 3 cm. This appears to be a new finding compared to prior imaging. This likely represents a focal area of pancreatitis, possibly developing pseudocyst or abscess.
Abdominal ultrasound 12/30/2023: Small complex mass at the fundus of the gallbladder, this may be tumefactive sludge. There is a small hypoechoic mass superior to the pancreatic head measuring 1.1 x 0.6 x 1.3 cm probably a peripancreatic node. The
pancreas is normal in size and echogenicity and shows no focal mass or calcification.
#RUQ pain, elevated Lipase, focal pancreatitis on imaging meets 3/3 diagnostic criteria for acute pancreatitis--etiology unclear at this time
-Given multiple recent imaging studies, including a PET in October 2023, this is very unlikely to represent malignancy, however, ++strong family history of pancreatic ca; after lengthy discussion with patient, she would like to proceed with MRI.
Pending MRI today.
-Lipase 3239 --> 3828 --> 2702
-CA 19-9- 50, though, this is nonspecific and not markedly elevated, await MRI results
-IgG4-16
-triglycerides 136
-unlikely 2/2 chemotherapy agent
-IVF, ADAT, analgesia, antiemetics
Subjective
Subjective
Date of Service: March 19, 2024
Patient reports significant improvement in her pain, feels less distended. MRI pending.
Objective
Data Reviewed
Laboratory Data:
Laboratory Results
03/17/24 04:14
03/19/24 05:22
Laboratory Results
Magnesium 1.7 mg/dl (1.6-2.3) 03/16/24 05:54
Total Bilirubin 0.6 mg/dl (0.2-1.3) 03/17/24 04:14
AST 25 U/L (14-36) 03/17/24 04:14
ALT 13 U/L (0-35) 03/17/24 04:14
Alkaline Phosphatase 128 U/L (38-126) H 03/17/24 04:14
Lipase 2702 U/L (23-300) H* 03/17/24 04:14
Vital Signs and I&O:
Vital Signs
Temp Pulse Resp BP Pulse Ox
98.8 F 79 16 130/73 98
03/19/24 07:35 03/19/24 08:33 03/19/24 08:11 03/19/24 08:33 03/19/24 08:11
I&O
03/18/24 03/19/24 03/20/24
06:59 06:59 06:59
Intake Total 600 / 600 960 / 960 120 / 120
Balance 600 / 600 960 / 960 120 / 120
Physical Exam
Physical Exam
HEENT: Anicteric and Moist mucous membranes
GI: Soft, Non Distended, Tender (mild TTP in RUQ and epigastrium, improved) and Normal Bowel Sounds
[2024-03-19 11:43] LABS: Glucose - Point of Care 92 mg/dl (70-99)
--- NOTE | 2024-03-19 12:14 | W.PN.HOSP.TC ---
Addendum entered and electronically signed by Shane Lowry MD 03/19/24 12:24:
will recheck labs
Original Note:
Today's Communication/Plan
-
await MRCP to determine next step
Assessment / Plan
Assessment / Plan
Acute pancreatitis -unclear etiology. Triglyceride normal. IgG4 pending. Ultrasound shows hypoechoic focus within the head of the pancreas, possibly representing focal area of pancreatitis, also possibly representing pseudocyst versus abscess.
Of note she had a CT of the abdomen in December of this year with IV contrast, pancreas was noted to be normal. Clear liquid diet ordered. N.p.o. prior to MRCP. MRCP pending
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 No gallstones noted.
Hyponatremia -likely hypovolemic. Improved with IV fluids.
Thoracic aortic aneurysm -admitted to [facility] in December. Decision was made to treat conservatively, patient was offered surgery at that time but she refused. Wanted to be treated conservatively.
DM2 without hyperglycemia -on metformin. A1c controlled.
Lung adenocarcinoma
follows with Dr. Beach
call placed and discussed with Dr. Laboy, will be available for input if issue develops with pulmonary aspects
10/26/[address] Skull to thigh: 1. Progression of disease with increased size and hypermetabolic activity of bilateral pulmonary nodular opacities compared to the PET/CT from 05/31/2023, including lesions in the superior segment of the left
lower lobe, right upper lobe, and right middle lobe. Findings are compatible with progression of malignancy/metastatic disease.
2. Stable hypermetabolic nodule in the right lobe of the thyroid gland.
COPD without exacerbation
Essential hypertension -stable.
Hyperlipidemia -on rosuvastatin.
Anxiety disorder
DNR
Anticipated Discharge: > 48 hours
Subjective/Interval History
-
Date of Service: March 19, 2024
Pain has lessened, but not resolved
Objective Data
-
Labs:
Laboratory Results
03/19/24
05:22
Sodium 134 L
Potassium 4.2
Chloride 99
Carbon Dioxide 23
BUN 10
Creatinine 0.5 L
Glucose 111 H
Calcium 8.9
Vital Signs:
Vital Signs
Temp Pulse Resp BP Pulse Ox
98.8 F 79 16 130/73 98
03/19/24 07:35 03/19/24 08:33 03/19/24 08:11 03/19/24 08:33 03/19/24 08:11
I&O
03/18/24 03/19/24 03/20/24
06:59 06:59 06:59
Intake Total 600 / 600 960 / 960 120 / 120
Balance 600 / 600 960 / 960 120 / 120
Review of Systems
-
History Source: Patient and Coordinated Provider
Constitutional: Denies Fever
EENT: Reports No Symptoms Reported
Respiratory: Reports Cough
Cardiac: Reports No Symptoms
Abdomen/GI: Reports Abdominal Pain
Genitourinary: Reports No Symptoms
Physical Exam
-
General: Well Developed, Well Nourished and No Apparent Distress
HEENT: Normocephalic, Atraumatic and Moist Mucous Membranes
Respiratory: Wheezes (coarse BS with coughing on forced expiration)
Cardiac: Regular Rhythm and S1/S2
GI: Soft, Nondistended, Normal Bowel Sounds and Tender (most tender medial RUQ)
Musculoskeletal: No Clubbing, No Cyanosis and No Edema
Neuro: Awake, Alert and Oriented
[2024-03-19 15:25] VITALS: BP 117/60
[2024-03-19 16:36] LABS: Glucose - Point of Care 427 mg/dl (70-99)
--- NOTE | 2024-03-19 16:55 | PTCARENOTE ---
Pt has HI glucose reading, advised MD, Ordered STAT glucose, awaiting results
--- NOTE | 2024-03-19 17:02 | CM ---
Waiting on MRCP.
Offered VN she declined need.
Family to drive her home.
PLAN Home no needs
[2024-03-19 17:23] LABS: Glucose 182 mg/dl (70-99)
--- NOTE | 2024-03-19 17:30 | PTCARENOTE ---
STAT glucose was 182, advised MD will cover for the 182 and give 1 unit of novolog
[2024-03-19] MEDS: LOVENOX 40 MG SC (18:03)
[2024-03-19] MEDS: SINGULAIR 10 MG PO (18:03)
[2024-03-19] MEDS: NOVOLOG FLEXPEN-LOW RESISTANCE 1 UNITS SC (18:04)
[2024-03-19 19:38] LABS: Glucose - Point of Care 197 mg/dl (70-99)
[2024-03-19] MEDS: ZOFRAN 4 MG IV (19:58)
[2024-03-19 21:27] LABS: Glucose - Point of Care 153 mg/dl (70-99)
[2024-03-19] MEDS: DILAUDID 0.5 MG IV (21:49)
[2024-03-19 23:00] VITALS: BP 96/51
[2024-03-20 06:35] LABS: % Basophils 0.2 % (0-2); % Eosinophils 2.3 % (0-6); % Immature Granulocytes 0.4 % (0-0.5); % Lymphocytes 9.1 % (20.5-51.1); % Monocytes 14.5 % (1.7-9.3); % Neutrophils 73.5 % (42.2-75.2); Absolute Eosinophils 0.1 10^3/uL (0-0.7); Absolute Lymphocytes 0.5 10^3/uL (1.2-3.4); Absolute Monocytes 0.8 10^3/uL (0.1-0.6); Absolute Neutrophils 4.1 10^3/uL (1.4-6.5); Hematocrit 35.1 % (37.0-47.0); Hemoglobin 11.5 g/dL (12.0-16.0); Mean Corp Hgb Conc. 32.8 g/dL (33.0-37.0); Mean Corpuscular Hgb 27.2 pg (27.0-31.0); Mean Platelet Volume 9.1 fL (7.4-10.4); Nucleated Red Blood Cells % 0 %; Platelet Count 318 10^3/uL (130-400); Red Blood Cell Count 4.23 10^6/uL (4.20-5.40); Red Cell Dist. Width 13.6 % (11.5-14.5); White Blood Cell Count 5.6 10^3/uL (4.8-10.8)
[2024-03-20 07:16] LABS: ALT (SGPT) 35 U/L (0-35); AST (SGOT) 67 U/L (14-36); Albumin 3.9 g/dl (3.5-5.0); Alkaline Phosphatase 252 U/L (38-126); Blood Urea Nitrogen 15 mg/dl (7-17); Carbon Dioxide 29 mmol/L (22-30); Chloride 95 mmol/L (98-107); Estimated Creatinine Clearance 62 ml/min; Glucose 157 mg/dl (70-99); Potassium 3.8 mmol/L (3.5-5.1); Sodium 135 mmol/L (135-145); Total Bilirubin 1.2 mg/dl (0.2-1.3); Total Protein 6.2 g/dl (6.3-8.2); eGFR > 60.00
[2024-03-20 07:19] VITALS: BP 130/67
[2024-03-20 07:28] LABS: Lipase > 4000 U/L (23-300)
--- NOTE | 2024-03-20 08:12 | W.PN.GI.CBS2 ---
Addendum entered and electronically signed by Honey Loving DO 03/20/24 10:12:
*suspected pancreatic adeno based on appearance on imaging, however, would need to confirm this was a 2nd primary malignancy vs. metastatic lesion. Will await oncology for input- would require EUS w/ FNA for tx diagnosis, patient would like to
discuss with oncology first.
Original Note:
Today's Communication / Plan
-
[facility] oncology consult. MRI findings discussed with patient.
Assessment / Plan
-
Quyen Islas is a 73-year-old female past medical history of adenocarcinoma of the lung on Lumakras, COPD, hypertension, hyperlipidemia, type 2 diabetes who presented to the hospital with right upper quadrant abdominal pain with radiation to the
back, nausea and vomiting found to have elevated lipase consistent with acute pancreatitis.
MR Abdomen w/wo 03/19/24: slightly ill-defined hypoenhancing lesion within the pancreatic head/uncinate process measuring approximately 2.9 x 2.4 cm with associated mild local mass effect.There were 2 T2 hyperintense, peripherally enhancing lesions
within the right hepatic lobe measuring 2.0 x 2.0 cm and 1.5 x 1.0 cm along the right hepatic dome. There is no intra or extrahepatic biliary ductal dilatation. There is narrowing of the common bile duct secondary to adjacent pancreatic lesion.
Abdominal ultrasound 03/15/2024: Likely gallbladder fundal adenomyomatosis, similar in appearance to ultrasound in December as well as CT in March 2022. Within the head of the pancreas there is an ovoid focus of decreased echogenicity with no
internal color flow, measuring 2.5 x 2.8 x 3 cm. This appears to be a new finding compared to prior imaging. This likely represents a focal area of pancreatitis, possibly developing pseudocyst or abscess.
Abdominal ultrasound 12/30/2023: Small complex mass at the fundus of the gallbladder, this may be tumefactive sludge. There is a small hypoechoic mass superior to the pancreatic head measuring 1.1 x 0.6 x 1.3 cm probably a peripancreatic node. The
pancreas is normal in size and echogenicity and shows no focal mass or calcification.
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
-MRI 03/19 with new findings of pancreatic mass with suspected liver mets; sent message to patient's outpatient oncologist, Dr. [place]; recommend oncology consult to discuss next steps, change in therapy to current chemo regimen, etc.
-Lipase 3239 --> 3828 --> 2702
-CA 19-9- 50
-IgG4-16
-triglycerides 136
-unlikely 2/2 chemotherapy agent
-IVF, ADAT, analgesia, antiemetics
Subjective
Subjective
Date of Service: March 20, 2024
Patient seen in follow-up, findings from MRI yesterday of [facility] pancreatic malignancy w/ hepatic mets, discussed at length. Understandably, patient very upset with the findings.
Objective
Data Reviewed
Laboratory Data:
Laboratory Results
03/20/24 05:33
03/20/24 05:33
Laboratory Results
Magnesium 1.7 mg/dl (1.6-2.3) 03/16/24 05:54
Total Bilirubin 1.2 mg/dl (0.2-1.3) 03/20/24 05:33
AST 67 U/L (14-36) H 03/20/24 05:33
ALT 35 U/L (0-35) 03/20/24 05:33
Alkaline Phosphatase 252 U/L (38-126) H 03/20/24 05:33
Lipase > 4000 U/L (23-300) H* 03/20/24 05:33
Vital Signs and I&O:
Vital Signs
Temp Pulse Resp BP Pulse Ox
98 F 79 16 130/67 96
03/20/24 07:19 03/20/24 07:19 03/20/24 07:19 03/20/24 07:19 03/20/24 07:19
I&O
03/19/24 03/20/24 03/21/24
06:59 06:59 06:59
Intake Total 960 / 960 480 / 480
Balance 960 / 960 480 / 480
Physical Exam
Physical Exam
HEENT: Anicteric and Moist mucous membranes
GI: Soft, Non Distended, Tender (mild TTP in RUQ and epigastrium, improved) and Normal Bowel Sounds
[2024-03-20] MEDS: LOPRESSOR 100 MG PO ×2 (08:26→20:31)
[2024-03-20] MEDS: ZESTRIL 2.5 MG PO (08:26)
[2024-03-20] MEDS: ASPIR LOW (ENTERIC COATED) 81 MG PO (08:26)
[2024-03-20] MEDS: NORVASC 10 MG PO (08:26)
[2024-03-20] MEDS: SPIRIVA RESPIMAT 2.5 MCG 2 PUFF INH (08:50)
[2024-03-20] MEDS: STRIVERDI RESPIMAT 2 PUFF INH (08:50)
[2024-03-20 09:42] VITALS: BMI 23.1
[2024-03-20] MEDS: NOVOLOG FLEXPEN-LOW RESISTANCE SC ×3 (09:49→17:14)
--- NOTE | 2024-03-20 10:17 | CON.ONC ---
Documented by User: Ricky Meier DO, Resident 03/20/24 10:35
Impression
Impression
73-year-old female with history of adenocarcinoma of the right lung, now presenting with new pancreatic and liver lesions with concern of progression of primary lung disease versus development of new primary cancer.
Plan
Plan
At the moment, tissue collection is paramount to differentiate if this is new primary or progression of existing disease. Recommendation to complete IR guided liver biopsy inpatient. If not feasible, recommendation of EUS guided biopsy of the
pancreas.
Final recommendations of treatment will be based on pathology results
Continue all other medical management per primary care team.
Patient History
History of Present Illness
73-year-old female with history of diabetes, hypertension, hyperlipidemia, aortic aneurysms, and adenocarcinoma of the lung diagnosed in 2013 , s/p chemo and radiation, currently on Lumakras presenting to [facility] with abdominal pain for
last few days. Her lung cancer was initially diagnosed in 2013 and was found to have K-bea G12C mutation. After 2013, patient never underwent repeat biopsy or resection of lung disease due to known history of aortic aneurysm, making her a poor
surgical candidate. Abdominal MRI on 03/19 shows a slightly ill-defined hypoenhancing lesion within the pancreatic head/uncinate process measuring approximately 2.9 x 2.4 cm with associated mild local mass effect and peripherally enhancing lesions
within the right hepatic lobe measuring 2.0 cm and 1.5 cm which are new and most consistent with hepatic metastases, raising concern for progression to pancreas and liver versus new primary pancreatic adenocarcinoma. PET scan on 10/31 showed
progression of lung disease with increased size and hypermetabolic activity of bilateral pulmonary nodule opacities compared to 05/2023.
Today she reports that she continues to have abdominal pain and bloating, poorly controlled on hydromorphone.
Past-Medical/Surgical History
Past Medical History
Lung Adenocarcinoma
COPD
Diabetes Mellitus, Type II
Essential Hypertension
Hyperlipidemia
Aortic Aneurysm
Past Surgical History:
Hysterectomy
B/L Carpel Tunnel Repair
Sinus Surgery
Patient Medication
�Medication �Instructions �Recorded �Confirmed �Last Taken �Type
aspirin 81 mg tablet,delayed 81 mg PO DAILY ##0 10/22/12 03/15/24 03/15/24 Rx
release
albuterol sulfate 90 mcg/actuation 2 puff inhalation R Q4 PRN 01/05/14 03/15/24 01/05/14 History
aerosol inhaler sob/wheeze
Medical Marijuana 1 dose PO HSPRN PRN anxiety/sleep 02/09/23 03/15/24 03/14/24 History
alprazolam 0.25 mg tablet 0.125 - 0.25 mg PO DAILYPRN PRN 02/09/23 03/15/24 Unknown History
anxiety
cetirizine 10 mg tablet (Zyrtec) 10 mg PO DAILYPRN PRN allergies 02/09/23 03/15/24 Unknown History
fluticasone propionate 50 1 spray intranasal DAILYPRN PRN 02/09/23 03/15/24 Unknown History
mcg/actuation nasal allergies
spray,suspension
glycopyrrolate 9 mcg-formoterol 2 puff inhalation R BID 02/09/23 03/15/24 03/15/24 History
4.8 mcg HFA aerosol inhaler Lung/Breathing Issues
(Bevespi Aerosphere)
montelukast 10 mg tablet 10 mg PO QPM ASTHMA 02/09/23 03/15/24 03/14/24 History
nitroglycerin 0.4 mg sublingual 0.4 mg sublingual [id number] PRN 02/09/23 03/15/24 Unknown History
tablet (Nitrostat) chest pain
rosuvastatin 10 mg tablet 10 mg PO QPM High Cholesterol 12/29/23 03/15/24 03/14/24 History
sotorasib 320 mg tablet (Lumakras) 640 mg PO DAILY@1230 12/29/23 03/15/24 12/28/23 History
Antineoplastic Agent, KRA
amlodipine 10 mg tablet 10 mg PO DAILY Blood Pressure 03/15/24 03/15/24 03/15/24 History
lisinopril 2.5 mg tablet 2.5 mg PO DAILY Blood Pressure 03/15/24 03/15/24 03/15/24 History
metformin 500 mg tablet 500 mg PO BID Diabetes 03/15/24 03/15/24 03/15/24 History
metoprolol tartrate 100 mg tablet 100 mg PO BID Blood Pressure 03/15/24 03/15/24 03/15/24 History
Active Medications
Generic Name Dose Route Start Last Admin
Trade Name Freq PRN Reason Stop Dose Admin
Acetaminophen 650 mg 03/15/24 20:50 03/17/24 18:18
Acetaminophen 325 Mg Tablet PO 04/12/24 20:49 650 mg
Q4HPRN PRN Administration
mild pain/ fever>100.5F
Albuterol 2 puff 03/17/24 08:04 03/17/24 07:15
Albuterol Hfa [90 Mcg/Dose] Inhaler INH 2 puff
R Q4HPRN PRN Administration
wheezing, SOB
Protocol
Alprazolam 0.25 mg 03/15/24 20:50
Alprazolam 0.25 Mg Tablet PO 04/12/24 20:49
DAILYPRN PRN
anxiety
Amlodipine Besylate 10 mg 03/16/24 08:00 03/20/24 08:26
Amlodipine 10 Mg Tablet PO 04/13/24 07:59 10 mg
DAILY JANNETTE Administration
Aspirin 81 mg 03/16/24 08:00 03/20/24 08:26
Aspirin 81 Mg (Enteric Coated) Tablet PO 04/13/24 07:59 81 mg
DAILY JANNETTE Administration
Dextrose 12.5 grams 03/15/24 20:50 03/16/24 23:09
Dextrose 50% (0.5 Grams/Ml) 50 Ml Syringe IV 04/12/24 20:49 12.5 grams
[id number] PRN Administration
hypoglycemia
Protocol
Enoxaparin Sodium 40 mg 03/16/24 18:00 03/19/24 18:03
Enoxaparin Sodium 40 Mg/0.4 Ml Syringe SC 04/13/24 17:59 40 mg
QPM JANNETTE Administration
Glucagon 1 mg 03/15/24 20:50
Glucagon 1 Mg Vial IM 04/12/24 20:49
PRN PRN
hypoglycemia
Protocol
Heparin Sodium (Porcine) 500 unit 03/16/24 09:45 03/18/24 08:19
Heparin Flush Pf (100 Unit/Ml) 5 Ml Syringe IV 04/13/24 09:44 500 unit
PER PROTOCOL JANNETTE Administration
Hydromorphone HCl 0.5 mg 03/17/24 08:08 03/19/24 21:49
Hydromorphone 0.5 Mg/0.5 Ml Syringe IV 03/31/24 08:07 0.5 mg
Q3HPRN PRN Administration
severe pain
Hydromorphone HCl 0.25 mg 03/18/24 22:44 03/19/24 19:55
Hydromorphone 0.25 Mg/0.5 Ml Syringe IV 04/01/24 22:43 0.25 mg
Q4HPRN PRN Administration
moderate pain
Insulin Aspart 0 units 03/16/24 07:30 03/20/24 09:49
Insulin Aspart Low Resistance 300 Units/3 Ml Pen.Injctr SC 04/13/24 07:29 Not Given
AC JANNETTE
Protocol
Lisinopril 2.5 mg 03/16/24 08:00 03/20/24 08:26
Lisinopril 2.5 Mg Tablet PO 04/13/24 07:59 2.5 mg
DAILY JANNETTE Administration
Metoprolol Tartrate 100 mg 03/15/24 20:50 03/20/24 08:26
Metoprolol 100 Mg Regular Release Tablet PO 04/12/24 20:49 100 mg
BID JANNETTE Administration
Montelukast Sodium 10 mg 03/16/24 18:00 03/19/24 18:03
Montelukast Sodium 10 Mg Tablet PO 04/13/24 17:59 10 mg
QPM JANNETTE Administration
Non-Formulary Medication 640 mg 03/16/24 12:30
Sotorasib [Lumakras] PO 04/13/24 12:29
DAILY@1230 JANNETTE
Olodaterol 2 puff 03/16/24 08:00 03/20/24 08:50
Olodaterol (Striverdi Respimat) 2.5 Mcg Inhaler INH 04/13/24 07:59 2 puff
R DAILY JANNETTE Administration
Ondansetron HCl 4 mg 03/15/24 20:50 03/19/24 19:58
Ondansetron 4 Mg/2 Ml Vial IV 04/12/24 20:49 4 mg
Q6HPRN PRN Administration
NAUSEA/VOMITING
Sodium Chloride 0 flush 03/15/24 21:00
Sodium Chloride 0.9% (Flush) Syringe IV 04/12/24 20:59
PER PROTOCOL JANNETTE
Tiotropium [place] 2 puff 03/16/24 08:00 03/20/24 08:50
Tiotropium (Spiriva Respimat) 2.5 Mcg Inhaler INH 04/13/24 07:59 2 puff
R DAILY JANNETTE Administration
Review of Systems
-
History Source: Patient
Constitutional: Reports No Symptoms
Respiratory: Reports No Symptoms
Cardiac: Reports No Symptoms
GI: Reports Abdominal Pain and Bloated
Musculoskeletal: Reports No Symptoms
Psych: Reports No Symptoms
Physical Exam
-
General: Well Developed, Well Nourished, No Apparent Distress, Comfortable and Conversant
GI: Soft
Musculoskeletal: No Clubbing, No Cyanosis and No Edema
Neurology: Non Focal, No Lateralizing Symptoms and No Word Finding Difficulty
Skin: Warm and Dry
Psych: Calm
Labs
Lab Results
WBC 5.6 10^3/uL (4.8-10.8) 03/20/24 05:33
RBC 4.23 10^6/uL (4.20-5.40) 03/20/24 05:33
Hgb 11.5 g/dL (12.0-16.0) L 03/20/24 05:33
Hct 35.1 % (37.0-47.0) L 03/20/24 05:33
MCV 83.0 fL (81.0-99.0) 03/20/24 05:33
MCH 27.2 pg (27.0-31.0) 03/20/24 05:33
MCHC 32.8 g/dL (33.0-37.0) L 03/20/24 05:33
RDW 13.6 % (11.5-14.5) 03/20/24 05:33
Plt Count 318 10^3/uL (130-400) 03/20/24 05:33
MPV 9.1 fL (7.4-10.4) 03/20/24 05:33
Abs Immat Gran (auto) 0.0 10^3/uL (0-0.05) 03/20/24 05:33
Absolute Neuts (auto) 4.1 10^3/uL (1.4-6.5) 03/20/24 05:33
Absolute Lymphs (auto) 0.5 10^3/uL (1.2-3.4) L 03/20/24 05:33
Absolute Monos (auto) 0.8 10^3/uL (0.1-0.6) H 03/20/24 05:33
Absolute Eos (auto) 0.1 10^3/uL (0-0.7) 03/20/24 05:33
Absolute Basos (auto) 0.0 10^3/uL (0-0.2) 03/20/24 05:33
Immature Gran % 0.4 % (0-0.5) 03/20/24 05:33
Neutrophils % 73.5 % (42.2-75.2) 03/20/24 05:33
Lymphocytes % 9.1 % (20.5-51.1) L 03/20/24 05:33
Monocytes % 14.5 % (1.7-9.3) H 03/20/24 05:33
Eosinophils % 2.3 % (0-6) 03/20/24 05:33
Basophils % 0.2 % (0-2) 03/20/24 05:33
Creatinine 0.5 mg/dL (0.6-1.0) L 03/20/24 05:33
Vital Signs
Vital Signs
Temp Pulse Resp BP Pulse Ox
98 F 81 18 130/67 97
03/20/24 07:19 03/20/24 08:57 03/20/24 08:57 03/20/24 08:26 03/20/24 08:57

Documented by User: Bony Easton MD 03/20/24 10:44
Plan
Plan
At the moment, tissue collection is paramount to differentiate if this is new primary or progression of existing disease. Recommendation to complete IR guided liver biopsy inpatient. If not feasible, recommendation of EUS guided biopsy of the
pancreas.
CA 19/9 = 50. Not helpful as borderline elevated.
Final recommendations of treatment will be based on pathology results. Prob needs restaging PET as well (outpatient).
Continue all other medical management per primary care team.
This note and patient examined jointly by me (SOFIA) and Dr. Meier.
Thank you!
Patient History
History of Present Illness
73-year-old female with history of diabetes, hypertension, hyperlipidemia, aortic aneurysms, and adenocarcinoma of the lung diagnosed in 2013 , s/p chemo and radiation, with PET POD in 2021 currently on Lumakras started in 2023 after 2nd PET showed
additional POD (never could get rebiopsied) presenting to [facility] with abdominal pain for last few days. Her lung cancer was initially diagnosed in 2013 and was found to have K-bea G12C mutation. After 2013, patient never underwent
repeat biopsy or resection of lung disease due to known history of aortic aneurysm, making her a poor biopsy candidate.
Now admitted with abdominal pain. Abdominal MRI on 03/19 shows a slightly ill-defined hypoenhancing lesion within the pancreatic head/uncinate process measuring approximately 2.9 x 2.4 cm with associated mild local mass effect and peripherally
enhancing lesions within the right hepatic lobe measuring 2.0 cm and 1.5 cm which are new and most consistent with hepatic metastases, raising concern for progression to pancreas and liver versus new primary pancreatic adenocarcinoma. PET scan back
in 10/31 showed progression of lung disease with increased size and hypermetabolic activity of bilateral pulmonary nodule opacities compared to 05/2023.
Today she reports that she continues to have abdominal pain and bloating, poorly controlled on hydromorphone.
Physical Exam
-
Cardiology: Normal Sinus Rhythm, S1 and S2
Pulmonary: Clear
--- NOTE | 2024-03-20 10:37 | CON.IR ---
Medical History
Allergies / Home Medications
Allergy/AdvReac Type Severity Reaction Status Date / Time
Penicillins Allergy Unknown Verified 03/15/24 15:23
�Medication �Instructions �Recorded �Confirmed �Type
aspirin 81 mg tablet,delayed 81 mg PO DAILY ##0 10/22/12 03/15/24 Rx
release
albuterol sulfate 90 mcg/actuation 2 puff inhalation R Q4 PRN 01/05/14 03/15/24 History
aerosol inhaler sob/wheeze
Medical Marijuana 1 dose PO HSPRN PRN anxiety/sleep 02/09/23 03/15/24 History
alprazolam 0.25 mg tablet 0.125 - 0.25 mg PO DAILYPRN PRN 02/09/23 03/15/24 History
anxiety
cetirizine 10 mg tablet (Zyrtec) 10 mg PO DAILYPRN PRN allergies 02/09/23 03/15/24 History
fluticasone propionate 50 1 spray intranasal DAILYPRN PRN 02/09/23 03/15/24 History
mcg/actuation nasal allergies
spray,suspension
glycopyrrolate 9 mcg-formoterol 2 puff inhalation R BID 02/09/23 03/15/24 History
4.8 mcg HFA aerosol inhaler Lung/Breathing Issues
(Bevespi Aerosphere)
montelukast 10 mg tablet 10 mg PO QPM ASTHMA 02/09/23 03/15/24 History
nitroglycerin 0.4 mg sublingual 0.4 mg sublingual [id number] PRN 02/09/23 03/15/24 History
tablet (Nitrostat) chest pain
rosuvastatin 10 mg tablet 10 mg PO QPM High Cholesterol 12/29/23 03/15/24 History
sotorasib 320 mg tablet (Lumakras) 640 mg PO DAILY@1230 12/29/23 03/15/24 History
Antineoplastic Agent, KRA
amlodipine 10 mg tablet 10 mg PO DAILY Blood Pressure 03/15/24 03/15/24 History
lisinopril 2.5 mg tablet 2.5 mg PO DAILY Blood Pressure 03/15/24 03/15/24 History
metformin 500 mg tablet 500 mg PO BID Diabetes 03/15/24 03/15/24 History
metoprolol tartrate 100 mg tablet 100 mg PO BID Blood Pressure 03/15/24 03/15/24 History
Physical Exam
Vital Signs
Temp Pulse Resp BP Pulse Ox
98 F 81 18 130/67 97
03/20/24 07:19 03/20/24 08:57 03/20/24 08:57 03/20/24 08:26 03/20/24 08:57
Lab Results
03/20/24 05:33
03/20/24 05:33
Assessment / Plan
-
Reviewed chart and imaging. Dominant right hepatic lobe lesion only seen on MRI. Not visualized on US. We would be forced to use CT guidance for this biopsy, but if unable to see on CT, we would be unable to percutaneously biopsy the lesion. Given
high bleeding risk of sold organ biopsy, aspirin will need to be held for 5 days prior to biopsy.
[2024-03-20] MEDS: DILAUDID 0.25 MG IV (10:48)
[2024-03-20 12:19] LABS: Glucose - Point of Care 156 mg/dl (70-99)
[2024-03-20 15:53] VITALS: BP 133/58
--- NOTE | 2024-03-20 16:29 | W.PN.HOSP.TC ---
Today's Communication/Plan
-
EUS with Bx
NPO after midnight
Assessment / Plan
Assessment / Plan
Acute pancreatitis -unclear etiology. Triglyceride normal. IgG4 pending. Ultrasound shows hypoechoic focus within the head of the pancreas, possibly representing focal area of pancreatitis, also possibly representing pseudocyst versus abscess.
Of note she had a CT of the abdomen in December of this year with IV contrast, pancreas was noted to be normal. Clear liquid diet ordered. MRCP completed, liver lesion noted, onc concerned might be 2 primaries vs recurent lung adeno with mets to
pancrease. IR consult for liver lesion bx, unable to do, GI planning for EUS with bx. NPO after midnight
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 No gallstones noted.
Hyponatremia -likely hypovolemic. Improved with IV fluids.
Thoracic aortic aneurysm -admitted to [facility] in December. Decision was made to treat conservatively, patient was offered surgery at that time but she refused. Wanted to be treated conservatively.
DM2 without hyperglycemia -on metformin. A1c controlled.
Lung adenocarcinoma
follows with Dr. Beach
call placed and discussed with Dr. Laboy, will be available for input if issue develops with pulmonary aspects
10/26/[address] Skull to thigh: 1. Progression of disease with increased size and hypermetabolic activity of bilateral pulmonary nodular opacities compared to the PET/CT from 05/31/2023, including lesions in the superior segment of the left
lower lobe, right upper lobe, and right middle lobe. Findings are compatible with progression of malignancy/metastatic disease.
2. Stable hypermetabolic nodule in the right lobe of the thyroid gland.
COPD without exacerbation
Essential hypertension -stable.
Hyperlipidemia -on rosuvastatin.
Anxiety disorder
DNR
Anticipated Discharge: 24 - 48 hours
Subjective/Interval History
-
Date of Service: March 20, 2024
seen and examined. no new complaints. no acute overnigth events
still has abd pain
reviewed hospital course and onc rec
-this lesion might be mets to the pancrease from recurretn lung adeno vs 2 primaries.
she wants the biopsy as she wants to know what it is but is unsure if she wants treatment.
Objective Data
-
Labs:
Laboratory Results
03/20/24
05:33
WBC 5.6
Hgb 11.5 L
Hct 35.1 L
Plt Count 318
Sodium 135
Potassium 3.8
Chloride 95 L
Carbon Dioxide 29
BUN 15
Creatinine 0.5 L
Glucose 157 H
Calcium 9.0
Total Bilirubin 1.2
AST 67 H
ALT 35
Alkaline Phosphatase 252 H
Vital Signs:
Vital Signs
Temp Pulse Resp BP Pulse Ox
97.7 F 77 18 133/58 97
03/20/24 15:53 03/20/24 15:53 03/20/24 15:53 03/20/24 15:53 03/20/24 15:53
I&O
03/19/24 03/20/24 03/21/24
06:59 06:59 06:59
Intake Total 960 / 960 480 / 480
Balance 960 / 960 480 / 480
--- NOTE | 2024-03-20 17:03 | CM ---
Spoke with pt at bedside .
IMM reviewed signed on chart.
Offered VN she declined need.
Family to drive her home.
PLAN Home no needs
[2024-03-20 17:12] LABS: Glucose - Point of Care 108 mg/dl (70-99)
[2024-03-20] MEDS: LOVENOX 40 MG SC (17:44)
[2024-03-20] MEDS: SINGULAIR 10 MG PO (17:44)
[2024-03-20 20:25] VITALS: BP 138/63
[2024-03-20] MEDS: DILAUDID 0.5 MG IV (20:32)
[2024-03-20 22:26] LABS: Glucose - Point of Care 140 mg/dl (70-99)
[2024-03-20 23:27] VITALS: BP 108/50
[2024-03-21] VITALS (9 sets, daily range): BP systolic 105–160; BP diastolic 57–70
[2024-03-21 04:35] LABS: Blood Urea Nitrogen 9 mg/dl (7-17); Carbon Dioxide 25 mmol/L (22-30); Chloride 100 mmol/L (98-107); Estimated Creatinine Clearance 62 ml/min; Glucose 136 mg/dl (70-99); Potassium 3.5 mmol/L (3.5-5.1); Sodium 137 mmol/L (135-145); eGFR > 60.00
[2024-03-21 06:31] LABS: Glucose - Point of Care 133 mg/dl (70-99)
[2024-03-21] MEDS: ZOFRAN 4 MG IV ×2 (07:44→15:33)
[2024-03-21] MEDS: DILAUDID 0.25 MG IV ×2 (07:46→15:33)
[2024-03-21] MEDS: ASPIR LOW (ENTERIC COATED) 81 MG PO (07:52)
[2024-03-21] MEDS: LOPRESSOR 100 MG PO ×2 (07:54→20:26)
[2024-03-21] MEDS: ZESTRIL 2.5 MG PO (07:54)
[2024-03-21] MEDS: NORVASC 10 MG PO (07:54)
[2024-03-21] MEDS: NOVOLOG FLEXPEN-LOW RESISTANCE SC ×3 (07:55→16:48)
[2024-03-21] MEDS: STRIVERDI RESPIMAT 2 PUFF INH (08:42)
[2024-03-21] MEDS: SPIRIVA RESPIMAT 2.5 MCG 2 PUFF INH (08:42)
--- NOTE | 2024-03-21 09:59 | W.PN.ONC2 ---
Today's Communication / Plan
-
Attempted liver biopsy on 03/20, unable to complete due to poor visualization on ultrasound. IR recommends repeating attempt after holding aspirin for 5 days.
Patient currently n.p.o. for EUS guided biopsy of the pancreas at 2:30 today.
CA 19/9 = 50, borderline elevated.
Final recommendations of treatment will be based on pathology results. Probably needs restaging PET as well (outpatient).
Continue all other medical management per primary care team.
Impression
Impression
73-year-old female with history of adenocarcinoma of the right lung, now presenting with new pancreatic and liver lesions with concern of progression of primary lung disease versus development of new primary cancer.
Subjective/Objective
Chief Complaint
Oncology follow-up
Subjective
Today patient reports having ongoing nausea, dry heaving, bloating, poor appetite and abdominal pain. Pain currently managed with Dilaudid. She states her last bowel movement was a week ago, but thinks she is not eating enough to have a bowel
movement.
Vital Signs:
Vital Signs
Temp Pulse Resp BP Pulse Ox
98.8 F 76 16 120/65 96
03/21/24 08:00 03/21/24 08:47 03/21/24 08:47 03/21/24 08:00 03/21/24 08:47
Lab Results:
Laboratory Data
WBC 5.6 10^3/uL (4.8-10.8) 03/20/24 05:33
Hgb 11.5 g/dL (12.0-16.0) L 03/20/24 05:33
Plt Count 318 10^3/uL (130-400) 03/20/24 05:33
eGFR > 60.00 03/21/24 04:03
Physical Exam
General: Alert and oriented x 3, conversant, resting in bed
GI: Soft
Extremities: No C/C/E
Review of Systems
Review of Systems
All systems were reviewed and negative unless otherwise stated
Constitutional: Reports Fatigue
Gastrointestinal: Reports Other (Abdominal pain, bloating, nausea, vomiting)
--- NOTE | 2024-03-21 14:07 | W.PN.HOSP.TC ---
Today's Communication/Plan
-
For EUS with Bx
Assessment / Plan
Assessment / Plan
NAD, resting comfortably in bed
Scleral anicteric
Moist mucous membranes
No JVD
CTA bilateral
Normal S1-S2 no murmurs
Soft nontender nondistended bowel sounds active
No peripheral pitting edema
Moves extremities spontaneously
AAOx3
Acute pancreatitis -unclear etiology. Triglyceride normal. IgG4 16 thereofre, r/o autoimmune pancreatitis. Ultrasound shows hypoechoic focus within the head of the pancreas, possibly representing focal area of pancreatitis, also possibly
representing pseudocyst versus abscess. Of note she had a CT of the abdomen in December of this year with IV contrast, pancreas was noted to be normal. Clear liquid diet ordered. MRCP completed, liver lesion noted, onc concerned might be 2 primaries
vs recurent lung adeno with mets to pancrease. IR consult for liver lesion bx, unable to do, GI planning for EUS with bx. NPO
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 No gallstones noted.
Hyponatremia -likely hypovolemic. Improved with IV fluids.
Thoracic aortic aneurysm -admitted to [facility] in December. Decision was made to treat conservatively, patient was offered surgery at that time but she refused. Wanted to be treated conservatively.
DM2 without hyperglycemia -on metformin. A1c controlled.
Lung adenocarcinoma
follows with Dr. Beach
call placed and discussed with Dr. Laboy, will be available for input if issue develops with pulmonary aspects
10/26/[address] Skull to thigh: 1. Progression of disease with increased size and hypermetabolic activity of bilateral pulmonary nodular opacities compared to the PET/CT from 05/31/2023, including lesions in the superior segment of the left
lower lobe, right upper lobe, and right middle lobe. Findings are compatible with progression of malignancy/metastatic disease.
2. Stable hypermetabolic nodule in the right lobe of the thyroid gland.
COPD without exacerbation
Essential hypertension -stable.
Hyperlipidemia -on rosuvastatin.
Anxiety disorder
DNR
For EUS with Bx.
Anticipated Discharge: Within 24 hours
Subjective/Interval History
-
Date of Service: March 21, 2024
Seen and examined. No new complaints. No acute overnight events.
Admits to some nausea this morning. Would like a prescription for Zofran on discharge along with percocet.
Objective Data
-
Labs:
Laboratory Results
03/21/24
04:03
Sodium 137
Potassium 3.5
Chloride 100
Carbon Dioxide 25
BUN 9
Creatinine 0.5 L
Glucose 136 H
Calcium 9.0
Vital Signs:
Vital Signs
Temp Pulse Resp BP Pulse Ox
98.8 F 76 16 120/65 96
03/21/24 08:00 03/21/24 08:47 03/21/24 08:47 03/21/24 08:00 03/21/24 08:47
I&O
03/20/24 03/21/24 03/22/24
06:59 06:59 06:59
Intake Total 480 / 480
Balance 480 / 480
--- NOTE | 2024-03-21 16:32 | W.DCSUMMARY ---
Discharge Summary
Discharge Data
Date of Admission: 03/15/24
Date of Discharge: 03/21/24
-
Pending Results: No
Hospital Course
73 F history of adenocarcinoma of the lung, COPD, aortic aneurysm, hypertension, hyperlipidemia and diabetes mellitus. Presenting with 2 days of abdominal pain nausea vomiting. Found to have a high of lipase. Etiology was unclear therefore full
workup was completed. Which included abdominal ultrasound and MRCP. Autoimmune pancreatitis ruled out. Was treated with IVF and analgesics. Pancreatic cancer was/is a possibility CA 19 9 is 50. Will DC home with outpatient Oncology follow up and
GI follow up. Will dc home with Percocet and Zofran.
Abdominal aortic aneurysm enlarging in size. Was told in the past no surgical intervention to occur. Therefore at this time refused to see vascular surgery as she states there is nothing to do for this.
It should be noted that oncology did see you but is unclear if this pancreatic mass is new pancreatic cancer or if this is recurrence of lung adenocarcinoma with mets to the pancreas. EUS with biopsy was completed on 03/21/2024. He will need to
follow-up with oncology/GI to review results with him.
EUS With Bx
-Impression: - A mass was identified in the pancreatic head. This
was staged T2 Nx Mx by endosonographic criteria. Fine
needle aspiration performed.
- One enlarged lymph node was visualized in the mere
hepatis region.
- Hyperechoic material consistent with sludge was
visualized endosonographically in the gallbladder body.
- There was no sign of significant pathology in the
ampulla.
- There was no evidence of significant pathology in
the left lobe of the liver.
Recommendation: - Return patient to [facility] for ongoing care.
- Clear liquid diet today.
- Await cytology results.
- Check CA 19-9.
- Refer to an oncologist if cytologic evaluation
confirms malignancy.
Abdominal MRI
IMPRESSION:
1.There is a slightly ill-defined hypoenhancing lesion within the pancreatic head/uncinate process measuring approximately 2.9 x 2.4 cm with associated mild local mass effect. 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 There
is narrowing of the adjacent main pancreatic duct with mild prominence of the duct within the body and tail. This lesion appears to abut the posterior aspect of the main portal vein without discrete invasion. No evidence of involvement of the
superior mesenteric artery.
2.There are peripherally enhancing lesions within the right hepatic lobe measuring 2.0 cm and 1.5 cm which are new and most consistent with hepatic metastases.
3. There is long segment narrowing of the common bile duct secondary to extrinsic compression by the pancreatic lesion. The gallbladder appears mildly distended.
4. 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 Dilated infrarenal abdominal aorta measuring up to 2.6 cm, similar to prior. Chronic infrarenal aortic dissection.
Abdominal Ultrasound
IMPRESSION:
Focus of heterogeneous echogenicity within the fundus of the gallbladder. Correlating with prior examinations, this is compatible with fundal adenomyomatosis. No gallstones are identified.
Hypoechoic focus within the head of the pancreas, with no internal color flow. Given the clinical history, this is probably a focal area of pancreatitis, and possibly representing a developing pseudocyst or abscess. Continued follow-up is
recommended.
Discharge Plan
-
Patient Disposition: Home (Routine Discharge)
Discharge Diagnosis/Procedures: Acute pancreatitis
Diet: Low Fat, Low Cholesterol and Low Residue
Activity: As tolerated
Driving Restrictions: No driving
Activity Restrictions/Additional Instructions:
Presenting with 2 days of abdominal pain nausea vomiting. Found to have a high of lipase. Etiology was unclear therefore full workup was completed. Which included abdominal ultrasound and MRCP. Autoimmune pancreatitis ruled out. Was treated with
IVF and analgesics. Pancreatic cancer was/is a possibility CA 19 9 is 50. Will DC home with outpatient Oncology follow up and GI follow up. Will dc home with Percocet and Zofran.
Abdominal aortic aneurysm enlarging in size. Was told in the past no surgical intervention to occur. Therefore at this time refused to see vascular surgery as she states there is nothing to do for this.
It should be noted that oncology did see you but is unclear if this pancreatic mass is new pancreatic cancer or if this is recurrence of lung adenocarcinoma with mets to the pancreas. EUS with biopsy was completed on 03/21/2024. He will need to
follow-up with oncology/GI to review results with him.
EUS With Bx
-Impression: - A mass was identified in the pancreatic head. This
was staged T2 Nx Mx by endosonographic criteria. Fine
needle aspiration performed.
- One enlarged lymph node was visualized in the mere
hepatis region.
- Hyperechoic material consistent with sludge was
visualized endosonographically in the gallbladder body.
- There was no sign of significant pathology in the
ampulla.
- There was no evidence of significant pathology in
the left lobe of the liver.
Recommendation: - Return patient to [facility] for ongoing care.
- Clear liquid diet today.
- Await cytology results.
- Check CA 19-9.
- Refer to an oncologist if cytologic evaluation
confirms malignancy.
Abdominal MRI
IMPRESSION:
1.There is a slightly ill-defined hypoenhancing lesion within the pancreatic head/uncinate process measuring approximately 2.9 x 2.4 cm with associated mild local mass effect. 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 There
is narrowing of the adjacent main pancreatic duct with mild prominence of the duct within the body and tail. This lesion appears to abut the posterior aspect of the main portal vein without discrete invasion. No evidence of involvement of the
superior mesenteric artery.
2.There are peripherally enhancing lesions within the right hepatic lobe measuring 2.0 cm and 1.5 cm which are new and most consistent with hepatic metastases.
3. There is long segment narrowing of the common bile duct secondary to extrinsic compression by the pancreatic lesion. The gallbladder appears mildly distended.
4. 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 Dilated infrarenal abdominal aorta measuring up to 2.6 cm, similar to prior. Chronic infrarenal aortic dissection.
Abdominal Ultrasound
IMPRESSION:
Focus of heterogeneous echogenicity within the fundus of the gallbladder. Correlating with prior examinations, this is compatible with fundal adenomyomatosis. No gallstones are identified.
Hypoechoic focus within the head of the pancreas, with no internal color flow. Given the clinical history, this is probably a focal area of pancreatitis, and possibly representing a developing pseudocyst or abscess. Continued follow-up is
recommended.
Referrals:
Sommer Pedraza DO [Family Provider] -
Honey Loving DO [Active] -
Bony Easton MD [Active] -
Prescriptions:
New
oxycodone-acetaminophen [Endocet] 5-325 mg tablet
1 tab PO Q6H PRN (Reason: sever pain) 3 Days Qty: 12 0RF
Rx Instructions:
do not use while operating heavy machinery, sleepy or difficulty breahting
ondansetron 4 mg tablet,disintegrating
4 mg PO Q8H PRN (Reason: nausea and vomiting) Qty: 21 0RF
Continued
aspirin 81 MG tablet,delayed release (DR/EC)
81 mg PO DAILY Qty: 0 0RF
albuterol sulfate 1 PUFF HFA aerosol inhaler
2 puff inhalation R Q4 PRN (Reason: sob/wheeze)
cetirizine [Zyrtec] 10 mg Tablet
10 mg PO DAILYPRN PRN (Reason: allergies)
alprazolam 0.25 mg tablet
0.125 - 0.25 mg PO DAILYPRN PRN (Reason: anxiety)
Patient Comments:
03/15/2024: last filled 12/12/22, 30 tabs for [facility] days from [facility]
nitroglycerin [Nitrostat] 0.4 mg Tablet, Sublingual
0.4 mg SUBLINGUAL [id number] PRN (Reason: chest pain)
montelukast 10 mg tablet
10 mg PO QPM
fluticasone propionate 50 mcg/actuation [place],Suspension
1 spray INTRANASAL DAILYPRN PRN (Reason: allergies)
Bevespi Aerosphere 9-4.8 mcg HFA aerosol inhaler
2 puff INHALATION R BID
Medical Marijuana drops
1 dose PO HSPRN PRN (Reason: anxiety/sleep)
rosuvastatin 10 mg tablet
10 mg PO QPM
Lumakras 320 mg tablet
640 mg PO DAILY@1230
metoprolol tartrate 100 mg Tablet
100 mg PO BID
amlodipine 10 mg Tablet
10 mg PO DAILY
lisinopril 2.5 mg Tablet
2.5 mg PO DAILY
metformin 500 mg tablet
500 mg PO BID
Discharge Orders:
Discharge Patient (As Directed); Ordered 03/21/24
Ordered By: Stephen Nielsen
Discharge Date and Time
Print Language: GIBRALTARIAN
[2024-03-21] MEDS: SINGULAIR 10 MG PO (17:42)
[2024-03-21] MEDS: LOVENOX SC (17:42)
--- NOTE | 2024-03-21 18:23 | CM ---
CM met with Quyen at bedside. She lives in a multilevel home with 1 entry step. She lives w/ her , son, and 6 yr old grandson. Pt reports a powder room on the 1st floor; full bath and bedroom on the 2nd floor; plans to put a bed in her
dining room.
No history of home care or SNF.
Pharmacy: [facility] on [address] in [place]
PCP: Dr. Sommer Pedraza
Plan: Discharge to home with no needs.
[2024-03-21 21:14] LABS: Glucose - Point of Care 184 mg/dl (70-99)
[2024-03-21] MEDS: DILAUDID 0.5 MG IV (22:05)
[2024-03-22 06:39] LABS: Blood Urea Nitrogen 11 mg/dl (7-17); Calcium 8.8 mg/dl (8.4-10.2); Carbon Dioxide 24 mmol/L (22-30); Chloride 101 mmol/L (98-107); Estimated Creatinine Clearance 62 ml/min; Glucose 119 mg/dl (70-99); Potassium 3.8 mmol/L (3.5-5.1); Sodium 137 mmol/L (135-145); eGFR > 60.00
[2024-03-22 07:00] VITALS: BP 141/64
[2024-03-22 08:09] LABS: Glucose - Point of Care 132 mg/dl (70-99)
[2024-03-22] MEDS: NOVOLOG FLEXPEN-LOW RESISTANCE SC ×3 (08:14→16:26)
[2024-03-22] MEDS: DILAUDID 0.5 MG IV ×2 (08:22→15:59)
[2024-03-22] MEDS: ZESTRIL 2.5 MG PO (08:26)
[2024-03-22] MEDS: ASPIR LOW (ENTERIC COATED) 81 MG PO (08:26)
[2024-03-22] MEDS: LOPRESSOR 100 MG PO (08:27)
[2024-03-22] MEDS: NORVASC 10 MG PO (08:27)
[2024-03-22] MEDS: SPIRIVA RESPIMAT 2.5 MCG 2 PUFF INH (08:37)
[2024-03-22] MEDS: STRIVERDI RESPIMAT 2 PUFF INH (08:37)
--- NOTE | 2024-03-22 09:18 | W.PN.GI.CBS2 ---
Today's Communication / Plan
-
Final path pending from EUS (prelim + pancreatic cancer), close follow-up with Oncology as outpatient. Being discharged home today
Assessment / Plan
-
Quyen Islas is a 73-year-old female past medical history of adenocarcinoma of the lung on Lumakras, COPD, hypertension, hyperlipidemia, type 2 diabetes who presented to the hospital with right upper quadrant abdominal pain with radiation to the
back, nausea and vomiting found to have elevated lipase consistent with acute pancreatitis.
MR Abdomen w/wo 03/19/24: slightly ill-defined hypoenhancing lesion within the pancreatic head/uncinate process measuring approximately 2.9 x 2.4 cm with associated mild local mass effect.There were 2 T2 hyperintense, peripherally enhancing lesions
within the right hepatic lobe measuring 2.0 x 2.0 cm and 1.5 x 1.0 cm along the right hepatic dome. There is no intra or extrahepatic biliary ductal dilatation. There is narrowing of the common bile duct secondary to adjacent pancreatic lesion.
Abdominal ultrasound 03/15/2024: Likely gallbladder fundal adenomyomatosis, similar in appearance to ultrasound in December as well as CT in March 2022. Within the head of the pancreas there is an ovoid focus of decreased echogenicity with no
internal color flow, measuring 2.5 x 2.8 x 3 cm. This appears to be a new finding compared to prior imaging. This likely represents a focal area of pancreatitis, possibly developing pseudocyst or abscess.
Abdominal ultrasound 12/30/2023: Small complex mass at the fundus of the gallbladder, this may be tumefactive sludge. There is a small hypoechoic mass superior to the pancreatic head measuring 1.1 x 0.6 x 1.3 cm probably a peripancreatic node. The
pancreas is normal in size and echogenicity and shows no focal mass or calcification.
#Acute pancreatitis 2/2 New Pancreatic Head Mass
-MRI 03/19 with new findings of pancreatic mass with suspected liver mets; sent message to patient's outpatient oncologist, Dr. Washington; recommend oncology consult to discuss next steps, change in therapy to current chemo regimen, etc. Prior lab w/u
including TGs, calcium and IgG4 lvl
- Tolerating CLD without difficulty, may ADAT
- Pre-herrera path (+) for pancreatic cancer, await final pathology results
- Oncology consulted, needs close f/u as outpatient- planning for PET as outpatient
Inpatient GI team will sign-off. Please call back with any questions or concerns.
Subjective
Subjective
Date of Service: March 22, 2024
- S/p EUS 03/21/24 with pancreatic head mass, staged T2 Nx Mx by endo criteria, prelim path positive for pancreatic cancer
- Otherwise, no acute events overnight
Resting comfortably this morning, although very upset and tearful about recent diagnosis. Reports having good family support, plans on going home today. Otherwise, no abdominal pain, nausea or vomiting.
Objective
Data Reviewed
Laboratory Data:
Laboratory Results
03/20/24 05:33
03/22/24 05:09
Laboratory Results
Magnesium 1.7 mg/dl (1.6-2.3) 03/16/24 05:54
Total Bilirubin 1.2 mg/dl (0.2-1.3) 03/20/24 05:33
AST 67 U/L (14-36) H 03/20/24 05:33
ALT 35 U/L (0-35) 03/20/24 05:33
Alkaline Phosphatase 252 U/L (38-126) H 03/20/24 05:33
Lipase > 4000 U/L (23-300) H* 03/20/24 05:33
Vital Signs and I&O:
Vital Signs
Temp Pulse Resp BP Pulse Ox
99.3 F 89 16 141/64 94
03/21/24 23:00 03/22/24 08:40 03/22/24 08:40 03/22/24 08:26 03/22/24 08:40
Physical Exam
Physical Exam
HEENT: Anicteric and Moist mucous membranes
Cardiology: Normal Sinus Rhythm
Pulmonary: Other (Normal WOB on room air)
GI: Soft, Non Distended and Flat
Extremities: No Edema and Warm
Neuro: Non Focal
[2024-03-22] MEDS: XANAX 0.25 MG PO (09:34)
--- NOTE | 2024-03-22 10:09 | W.PN.ONC2 ---
Today's Communication / Plan
-
Attempted liver biopsy on 03/20, unable to complete due to poor visualization on ultrasound. IR recommends repeating attempt after holding aspirin for 5 days.
EUS guided biopsy of the pancreas completed on 03/[address] Weaver. Pending biopsy results.
CA 19/9 = 50, borderline elevated.
Final recommendations of treatment will be based on pathology results. Outpatient PET ordered and follow-up with oncology in April.
Continue all other medical management per primary care team. Prepare for discharge
Impression
Impression
73-year-old female with history of adenocarcinoma of the right lung, now presenting with new pancreatic and liver lesions with concern of progression of primary lung disease versus development of new primary cancer.
Subjective/Objective
Chief Complaint
Oncology follow-up
Subjective
Patient reports feeling tired t today and is ready for discharge. She underwent biopsy of pancreatic mass on 03/21. She reports no new symptoms.
Vital Signs:
Vital Signs
Temp Pulse Resp BP Pulse Ox
99.1 F 89 16 141/64 94
03/22/24 07:00 03/22/24 08:40 03/22/24 08:40 03/22/24 08:26 03/22/24 08:40
Lab Results:
Laboratory Data
WBC 5.6 10^3/uL (4.8-10.8) 03/20/24 05:33
Hgb 11.5 g/dL (12.0-16.0) L 03/20/24 05:33
Plt Count 318 10^3/uL (130-400) 03/20/24 05:33
eGFR > 60.00 03/22/24 05:09
Physical Exam
General: Alert and oriented x 3, conversant, sitting comfortably
[2024-03-22 12:09] LABS: Glucose - Point of Care 126 mg/dl (70-99)
--- NOTE | 2024-03-22 13:28 | CM ---
Home no needs when stable.
Plan; Home no needs.
[2024-03-22 15:00] VITALS: BP 113/57
--- NOTE | 2024-03-22 15:00 | W.PN.HOSP.TC ---
Today's Communication/Plan
-
DC home today. Outpatient follow-up with oncology
Assessment / Plan
Assessment / Plan
NAD, resting comfortably in bed
Scleral anicteric
Moist mucous membranes
No JVD
CTA bilateral
Normal S1-S2 no murmurs
Soft nontender nondistended bowel sounds active
No peripheral pitting edema
Moves extremities spontaneously
AAOx3
Acute pancreatitis -unclear etiology. Triglyceride normal. IgG4 16 thereofre, r/o autoimmune pancreatitis. Ultrasound shows hypoechoic focus within the head of the pancreas, possibly representing focal area of pancreatitis, also possibly
representing pseudocyst versus abscess. Of note she had a CT of the abdomen in December of this year with IV contrast, pancreas was noted to be normal. Clear liquid diet ordered. MRCP completed, liver lesion noted, onc concerned might be 2 primaries
vs recurent lung adeno with mets to pancrease. IR consult for liver lesion bx, unable to do, GI planning for EUS with bx. NPO
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 No gallstones noted.
Hyponatremia -likely hypovolemic. Improved with IV fluids.
Thoracic aortic aneurysm -admitted to [facility] in December. Decision was made to treat conservatively, patient was offered surgery at that time but she refused. Wanted to be treated conservatively.
DM2 without hyperglycemia -on metformin. A1c controlled.
Lung adenocarcinoma
follows with Dr. Beach
call placed and discussed with Dr. Laboy, will be available for input if issue develops with pulmonary aspects
10/26/[address] Skull to thigh: 1. Progression of disease with increased size and hypermetabolic activity of bilateral pulmonary nodular opacities compared to the PET/CT from 05/31/2023, including lesions in the superior segment of the left
lower lobe, right upper lobe, and right middle lobe. Findings are compatible with progression of malignancy/metastatic disease.
2. Stable hypermetabolic nodule in the right lobe of the thyroid gland.
COPD without exacerbation
Essential hypertension -stable.
Hyperlipidemia -on rosuvastatin.
Anxiety disorder
DNR
For EUS with Bx.
Anticipated Discharge: Today
Subjective/Interval History
-
Date of Service: March 22, 2024
Today we had a spiritual discussion. She states that she is angry about this diagnosis or potential diagnosis. She tells me that her son will be a humongous support to her however he does not have support himself. Tells me that her she
thinks has asked Jud's and already has a lot of anxiety. I informed her that at this time she is in control of what effort that diagnosis of this tissue biopsy is. She can proceed with treatment. She can defer treatment. She can start
treatment and then stop treatment if she wanted to. She verbalized understanding. Spiritual care also saw
Objective Data
-
Labs:
Laboratory Results
03/22/24
05:09
Sodium 137
Potassium 3.8
Chloride 101
Carbon Dioxide 24
BUN 11
Creatinine 0.5 L
Glucose 119 H
Calcium 8.8
Vital Signs:
Vital Signs
Temp Pulse Resp BP Pulse Ox
99.1 F 89 16 141/64 94
03/22/24 07:00 03/22/24 08:40 03/22/24 08:40 03/22/24 08:26 03/22/24 08:40
--- NOTE | 2024-03-22 15:02 | W.DCSUMMARY ---
Discharge Summary
Discharge Data
Date of Admission: 03/15/24
Date of Discharge: 03/22/24
-
Pending Results: Yes
Additional Pending Results:
Tissue bx from EUS
Hospital Course
73 F History of adenocarcinoma of the lung, COPD, aortic aneurysm, hypertension, hyperlipidemia and diabetes mellitus. Presenting with 2 days of abdominal pain nausea vomiting. Found to have a high of lipase. Etiology was unclear therefore full
workup was completed. Which included abdominal ultrasound and MRCP. Autoimmune pancreatitis ruled out. Was treated with IVF and analgesics. Pancreatic cancer was/is a possibility CA 19 9 is 50. Will DC home with outpatient Oncology follow up and
GI follow up. Will dc home with Percocet and Zofran.
Abdominal aortic aneurysm enlarging in size. Was told in the past no surgical intervention to occur. Therefore at this time refused to see vascular surgery as she states there is nothing to do for this.
It should be noted that oncology did see you but is unclear if this pancreatic mass is new pancreatic cancer or if this is recurrence of lung adenocarcinoma with mets to the pancreas. EUS with biopsy was completed on 03/21/2024. He will need to
follow-up with oncology/GI to review results with him.
EUS With Bx
-Impression: - A mass was identified in the pancreatic head. This
was staged T2 Nx Mx by endosonographic criteria. Fine
needle aspiration performed.
- One enlarged lymph node was visualized in the mere
hepatis region.
- Hyperechoic material consistent with sludge was
visualized endosonographically in the gallbladder body.
- There was no sign of significant pathology in the
ampulla.
- There was no evidence of significant pathology in
the left lobe of the liver.
Recommendation: - Return patient to [facility] for [facility] care.
- Clear liquid diet today.
- Await cytology results.
- Check CA 19-9.
- Refer to an oncologist if cytologic evaluation
confirms malignancy.
Abdominal MRI
IMPRESSION:
1.There is a slightly ill-defined hypoenhancing lesion within the pancreatic head/uncinate process measuring approximately 2.9 x 2.4 cm with associated mild local mass effect. 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 There
is narrowing of the adjacent main pancreatic duct with mild prominence of the duct within the body and tail. This lesion appears to abut the posterior aspect of the main portal vein without discrete invasion. No evidence of involvement of the
superior mesenteric artery.
2.There are peripherally enhancing lesions within the right hepatic lobe measuring 2.0 cm and 1.5 cm which are new and most consistent with hepatic metastases.
3. There is long segment narrowing of the common bile duct secondary to extrinsic compression by the pancreatic lesion. The gallbladder appears mildly distended.
4. 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 Dilated infrarenal abdominal aorta measuring up to 2.6 cm, similar to prior. Chronic infrarenal aortic dissection.
Abdominal Ultrasound
IMPRESSION:
Focus of heterogeneous echogenicity within the fundus of the gallbladder. Correlating with prior examinations, this is compatible with fundal adenomyomatosis. No gallstones are identified.
Hypoechoic focus within the head of the pancreas, with no internal color flow. Given the clinical history, this is probably a focal area of pancreatitis, and possibly representing a developing pseudocyst or abscess. Continued follow-up is
recommended.
Discharge Plan
-
Patient Disposition: Home (Routine Discharge)
Discharge Diagnosis/Procedures: Acute pancreatitis
History of adenocarcinoma of the lung, COPD, aortic aneurysm, hypertension, hyperlipidemia and diabetes mellitus
Diet: Low Fat, Low Cholesterol and Low Residue
Activity: As tolerated
Driving Restrictions: No driving
Activity Restrictions/Additional Instructions:
Presenting with 2 days of abdominal pain nausea vomiting. Found to have a high of lipase. Etiology was unclear therefore full workup was completed. Which included abdominal ultrasound and MRCP. Autoimmune pancreatitis ruled out. Was treated with
IVF and analgesics. Pancreatic cancer was/is a possibility CA 19 9 is 50. Will DC home with outpatient Oncology follow up and GI follow up. Will dc home with Percocet and Zofran.
Abdominal aortic aneurysm enlarging in size. Was told in the past no surgical intervention to occur. Therefore at this time refused to see vascular surgery as she states there is nothing to do for this.
It should be noted that oncology did see you but is unclear if this pancreatic mass is new pancreatic cancer or if this is recurrence of lung adenocarcinoma with mets to the pancreas. EUS with biopsy was completed on 03/21/2024. He will need to
follow-up with oncology/GI to review results with him.
EUS With Bx
-Impression: - A mass was identified in the pancreatic head. This
was staged T2 Nx Mx by endosonographic criteria. Fine
needle aspiration performed.
- One enlarged lymph node was visualized in the mere
hepatis region.
- Hyperechoic material consistent with sludge was
visualized endosonographically in the gallbladder body.
- There was no sign of significant pathology in the
ampulla.
- There was no evidence of significant pathology in
the left lobe of the liver.
Recommendation: - Return patient to [facility] for ongoing care.
- Clear liquid diet today.
- Await cytology results.
- Check CA 19-9.
- Refer to an oncologist if cytologic evaluation
confirms malignancy.
Abdominal MRI
IMPRESSION:
1.There is a slightly ill-defined hypoenhancing lesion within the pancreatic head/uncinate process measuring approximately 2.9 x 2.4 cm with associated mild local mass effect. 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 There
is narrowing of the adjacent main pancreatic duct with mild prominence of the duct within the body and tail. This lesion appears to abut the posterior aspect of the main portal vein without discrete invasion. No evidence of involvement of the
superior mesenteric artery.
2.There are peripherally enhancing lesions within the right hepatic lobe measuring 2.0 cm and 1.5 cm which are new and most consistent with hepatic metastases.
3. There is long segment narrowing of the common bile duct secondary to extrinsic compression by the pancreatic lesion. The gallbladder appears mildly distended.
4. 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 Dilated infrarenal abdominal aorta measuring up to 2.6 cm, similar to prior. Chronic infrarenal aortic dissection.
Abdominal Ultrasound
IMPRESSION:
Focus of heterogeneous echogenicity within the fundus of the gallbladder. Correlating with prior examinations, this is compatible with fundal adenomyomatosis. No gallstones are identified.
Hypoechoic focus within the head of the pancreas, with no internal color flow. Given the clinical history, this is probably a focal area of pancreatitis, and possibly representing a developing pseudocyst or abscess. Continued follow-up is
recommended.
Referrals:
Sommer Pedraza DO [Family Provider] -
Honey Loving DO [Active] -
Bony Easton MD [Active] -
Prescriptions:
New
oxycodone-acetaminophen [Endocet] 5-325 mg tablet
1 tab PO Q6H PRN (Reason: sever pain) 3 Days Qty: 12 0RF
Rx Instructions:
do not use while operating heavy machinery, sleepy or difficulty breahting
ondansetron 4 mg tablet,disintegrating
4 mg PO Q8H PRN (Reason: nausea and vomiting) Qty: 21 0RF
Continued
aspirin 81 MG tablet,delayed release (DR/EC)
81 mg PO DAILY Qty: 0 0RF
albuterol sulfate 1 PUFF HFA aerosol inhaler
2 puff inhalation R Q4 PRN (Reason: sob/wheeze)
cetirizine [Zyrtec] 10 mg Tablet
10 mg PO DAILYPRN PRN (Reason: allergies)
alprazolam 0.25 mg tablet
0.125 - 0.25 mg PO DAILYPRN PRN (Reason: anxiety)
Patient Comments:
03/15/2024: last filled 12/12/22, 30 tabs for 30 days from [facility]
nitroglycerin [Nitrostat] 0.4 mg Tablet, Sublingual
0.4 mg SUBLINGUAL [id number] PRN (Reason: chest pain)
montelukast 10 mg tablet
10 mg PO QPM
fluticasone propionate 50 mcg/actuation [place],Suspension
1 spray INTRANASAL DAILYPRN PRN (Reason: allergies)
Bevespi Aerosphere 9-4.8 mcg HFA aerosol inhaler
2 puff INHALATION R BID
Medical Marijuana drops
1 dose PO HSPRN PRN (Reason: anxiety/sleep)
rosuvastatin 10 mg tablet
10 mg PO QPM
Lumakras 320 mg tablet
640 mg PO DAILY@1230
metoprolol tartrate 100 mg Tablet
100 mg PO BID
amlodipine 10 mg Tablet
10 mg PO DAILY
lisinopril 2.5 mg Tablet
2.5 mg PO DAILY
metformin 500 mg tablet
500 mg PO BID
Discharge Orders:
Discharge Patient (As Directed); Ordered 03/22/24
Ordered By: Stephen Nielsen
Discharge Date and Time
Print Language: PORTUGUESE
[2024-03-22 16:23] LABS: Glucose - Point of Care 164 mg/dl (70-99)
== END 2024-03-22 17:03 | disposition home or self-care (01) | DRG 435 ==
LOC: 4 EAST ACU 19:09
PROVIDERS: Internal Medicine; Internal Medicine Gastroenterology; Nurse Practitioner; Physician Assistant Medical; ADMITTING PHYSICIAN Hospitalist; ATTENDING PHYSICIAN Hospitalist; CONSULT PHYSICIAN Internal Medicine; CONSULT PHYSICIAN Internal Medicine Hematology & Oncology; EMERGENCY PHYSICIAN Emergency Medicine; FAMILY PHYSICIAN Internal Medicine
PROC: 0FBG8ZX Excision of Pancreas, Via Natural or Artificial Opening Endoscopic, Diagnostic (ICD-10-PCS; 2024-03-21)
PROC: BF47ZZZ Ultrasonography of Pancreas (ICD-10-PCS; 2024-03-21)
DX: C25.0 Malignant neoplasm of head of pancreas (principal); K85.90 Acute pancreatitis without necrosis or infection, unspecified; C34.90 Malignant neoplasm of unspecified part of unspecified bronchus or lung; C78.7 Secondary malignant neoplasm of liver and intrahepatic bile duct; E11.9 Type 2 diabetes mellitus without complications; I10 Essential (primary) hypertension; I71.43 Infrarenal abdominal aortic aneurysm, without rupture; J44.9 Chronic obstructive pulmonary disease, unspecified; E78.00 Pure hypercholesterolemia, unspecified; Z66 Do not resuscitate; F41.9 Anxiety disorder, unspecified; K59.09 Other constipation; N28.1 Cyst of kidney, acquired; R59.0 Localized enlarged lymph nodes; R63.0 Anorexia; Z68.23 Body mass index [BMI] 23.0-23.9, adult; Z79.82 Long term (current) use of aspirin; Z79.84 Long term (current) use of oral hypoglycemic drugs; Z79.899 Other long term (current) drug therapy; Z87.891 Personal history of nicotine dependence; Z90.710 Acquired absence of both cervix and uterus; Z92.3 Personal history of irradiation; Z88.0 Allergy status to penicillin; Z80.0 Family history of malignant neoplasm of digestive organs; Z80.3 Family history of malignant neoplasm of breast
CPT/HCPCS: 88172; 88173; 88305; 74183; 76700; 80048; 80053; 82787; 82947; 82962; 83036; 83690; 83735; 84478; 85025; 85027; 86301; 88341; 88342; 94640; 96374; 99285; A9575

== ENCOUNTER 2024-04-07 22:52 | Inpatient (IN) | payer MEDICARE, OTHER, SELFPAY ==
[2024-04-07 20:42] VITALS: BP 138/69
[2024-04-07 20:50] VITALS: BP 126/48
[2024-04-07 21:00] VITALS: BP 107/43
--- NOTE | 2024-04-07 21:07 | ED.GENMED ---
History of Present Illness
<Nicky Braswell PA-C - Last Filed: 04/07/24 22:52>
General
Chief Complaint: Abdominal Pain
Source: patient and spouse
Exam Limitations: none
Time Seen by Provider: 04/07/24 20:48
Nursing documentation reviewed up to this point in time: agreed with
History of Present Illness
History of Present Illness:
73-year-old female with history of lung cancer, recently diagnosed pancreatic cancer presenting to the emergency department with acute onset abdominal pain and vomiting. Patient was discharged from hospital 2 weeks ago after approximately week long
stay for acute pancreatitis where pancreatic mass was identified. Patient states she has had abdominal pain since discharge from the hospital although today it seemed to acutely worsen and she had a few episodes of vomiting. Patient's
thought she looked 'yellow '. Patient denies any associated fever, chill, hemoptysis, hematochezia/melena. No urinary symptoms. Patient with very little appetite since discharge from hospital.
Patient has followed with oncology outpatient who are still deciding if they want to pursue chemotherapy. Patient has been taking 5 mg oxycodone as needed for pain although did not seem to helping her pain today.
Past History
<Nicky Braswell PA-C - Last Filed: 04/07/24 22:52>
Past History
ED Past Medical History: Cancer and COPD
ED Past Surgical History: Negative Cholecystectomy
Social History
Tobacco: Former smoker
Alcohol: None
Drug: None
Personal:
Living: with family
Employment: Not employed
Family History
Family History: Other
Review of Systems
<Nicky Braswell PA-C - Last Filed: 04/07/24 22:52>
Review of Systems
Allergies reviewed?: Yes
All Other Systems: ROS reviewed and negative except as documented in HPI and ROS
Phy Exam
<Nicky Braswell PA-C - Last Filed: 04/07/24 22:52>
Physical Exam
Physical Exam:
Vitals: Patient's vital signs are stable. Afebrile
General: Patient is moderately uncomfortable due to pain, acutely ill-appearing.
Skin: Warm and dry, jaundiced
Head: Normocephalic, atraumatic
Eyes: Sclera icterus bilaterally. EOMs intact. No nystagmus.
Throat: Protecting airway
Neck: Normal ROM, no cervical spine tenderness, no meningismus
Cardiac: Regular rate and rhythm, no murmurs.
Pulm: Normal respiratory effort, no wheezes, rales, rhonchi heard on exam.
Abdomen: Moderate tenderness upper abdomen and right upper quadrant with voluntary guarding. No rebound tenderness
Extremities: No evidence of cyanosis or edema. Great distal pulses
Neuro: Grossly intact.
Psychiatric: Normal affect.
Course
<Nicky Braswell PA-C - Last Filed: 04/07/24 22:52>
Orders/Labs/Results
Orders:
Orders
04/07/24 20:57
IV Insert/Care/Rem.- Treatment PRN
04/07/24 21:00
0.9% Sodium Chloride 1000 ml [Nss] 1,000 ml IV BOLUS
Ondansetron Injectable [Zofran] 4 mg IV NOW STA
04/07/24 21:06
HYDROmorphone [Dilaudid] 0.25 mg IV NOW STA
04/07/24 21:11
Acetaminophen Urgent
Complete Blood Count/With Diff Urgent
Comprehensive Metabolic Panel Urgent
Direct Bilirubin Urgent
Comment: ADD ON
Lactate Level [Lactic Acid] Urgent
Lipase Urgent
04/07/24 21:26
Portable Chest Xray [CR Chest Portable - 1 View] Urgent
Comment:
Reason For Exam: port placement
Reason Study Needs to be Portable: Unable to Transport
04/07/24 22:13
HYDROmorphone [Dilaudid] 0.5 mg IV NOW STA
04/07/24 22:26
Add On- LAB Urgent
Tests Added?: direct bilirubin
04/07/24 22:38
Albuterol [ProAIR HFA INHALER] 2 puff INH R Q4HPRN PRN
Alprazolam [Xanax] 0.125 mg PO DAILYPRN PRN
Cetirizine HCl [Zyrtec] 10 mg PO DAILYPRN PRN
04/07/24 22:40
Admit/Transfer Patient As Directed
Co-Sign Provider:
Level of Care: Inpatient admission
Assign to:: Medical/Surgical
Physician / Group: hospitalist
Diagnosis: jaundice, abdominal pain
Reason for Hospitalization: biliary obstruction
Expected length of stay greater than two midnights?: Yes
ELOS- Estimated Length of Stay in days: 2
I certify the patient meets the requirements for IP care: Yes
PRN Pain Medication Management As Directed
May give lesser potent ordered pain med per pt: Yes
preference::
Protocol:: Medication orders for pain may be administered in a
manner that supports deferring to patient preference
when the pt is:
- Requesting an ordered lesser potent pain medication.
Least to most potent pain medications are defined
as: acetaminophen < NSAID < tramadol < opioids
(morphine, oxycodone, hydromorphone).
- Requesting a lesser dose of the same medication IF
ORDERED.
- Requesting a less intrusive route of administration
if both routes are prescribed by the provider (PO <
IV).
04/07/24 22:42
Code Status As Directed
Resuscitation Status: Full Code
04/07/24 23:00
Flush (0.9% Sodium Chloride) [Flush (Nss)] See Dose Instructions IV PER PROTOCOL
04/08/24 08:00
Amlodipine [Norvasc] 10 mg PO DAILY
Aspirin Low Dose EC [Aspir Low (Enteric Coated)] 81 mg PO DAILY
Lisinopril [Zestril] 2.5 mg PO DAILY
Metoprolol [Lopressor] 100 mg PO BID
Olodaterol HCl [Striverdi Respimat] 2 puff INH R DAILY
Tiotropium Maxwell 2.5 Mcg [Spiriva Respimat 2.5 Mcg] 2 puff INH R DAILY
04/08/24 18:00
Montelukast Sodium [Singulair] 10 mg PO QPM
Rosuvastatin Calcium [Crestor] 10 mg PO QPM
Abnormal Lab Results
04/07/24
21:11
WBC 12.2 H 10^3/uL
(4.8-10.8)
Hgb 11.8 L g/dL
(12.0-16.0)
Hct 35.5 L %
(37.0-47.0)
RDW 15.0 H %
(11.5-14.5)
Abs Immat Gran (auto) 0.1 H 10^3/uL
(0-0.05)
Absolute Neuts (auto) 10.1 H 10^3/uL
(1.4-6.5)
Absolute Lymphs (auto) 0.6 L 10^3/uL
(1.2-3.4)
Absolute Monos (auto) 1.3 H 10^3/uL
(0.1-0.6)
Immature Gran % 0.7 H %
(0-0.5)
Neutrophils % 82.8 H %
(42.2-75.2)
Lymphocytes % 4.7 L %
(20.5-51.1)
Monocytes % 11.0 H %
(1.7-9.3)
Sodium 131 L mmol/L
(135-145)
Chloride 93 L mmol/L
(98-107)
Glucose 139 H mg/dl
(70-99)
Total Bilirubin 9.1 H mg/dl
(0.2-1.3)
Direct Bilirubin 8.2 H mg/dl
(0.0-0.4)
AST 819 H* U/L
(14-36)
ALT 425 H U/L
(0-35)
Alkaline Phosphatase > 2400 H U/L
(38-126)
Lipase 794 H U/L
(23-300)
04/07/24 21:11
04/07/24 21:11
Vital Signs
Initial and Last Documented VS:
Initial Vital Signs
Temp Pulse Resp BP Pulse Ox
36.9 C 108 22 138/69 93
04/07/24 20:42 04/07/24 20:42 04/07/24 20:42 04/07/24 20:42 04/07/24 20:42
Last Documented Vital Signs
Temp Pulse Resp BP Pulse Ox
36.9 C 96 16 125/51 92
04/07/24 20:42 04/07/24 22:30 04/07/24 22:30 04/07/24 22:00 04/07/24 22:30
<Derick Grimm MD - Last Filed: 04/07/24 23:00>
Orders/Labs/Results
Orders:
Orders
04/07/24 20:57
IV Insert/Care/Rem.- Treatment PRN
04/07/24 21:00
0.9% Sodium Chloride 1000 ml [Nss] 1,000 ml IV BOLUS
Ondansetron Injectable [Zofran] 4 mg IV NOW STA
04/07/24 21:06
HYDROmorphone [Dilaudid] 0.25 mg IV NOW STA
04/07/24 21:11
Acetaminophen Urgent
Complete Blood Count/With Diff Urgent
Comprehensive Metabolic Panel Urgent
Direct Bilirubin Urgent
Comment: ADD ON
Lactate Level [Lactic Acid] Urgent
Lipase Urgent
04/07/24 21:26
Portable Chest Xray [CR Chest Portable - 1 View] Urgent
Comment:
Reason For Exam: port placement
Reason Study Needs to be Portable: Unable to Transport
04/07/24 22:13
HYDROmorphone [Dilaudid] 0.5 mg IV NOW STA
04/07/24 22:26
Add On- LAB Urgent
Tests Added?: direct bilirubin
04/07/24 22:38
Albuterol [ProAIR HFA INHALER] 2 puff INH R Q4HPRN PRN
Alprazolam [Xanax] 0.125 mg PO DAILYPRN PRN
Cetirizine HCl [Zyrtec] 10 mg PO DAILYPRN PRN
04/07/24 22:40
Admit/Transfer Patient As Directed
Co-Sign Provider:
Level of Care: Inpatient admission
Assign to:: Medical/Surgical
Physician / Group: hospitalist
Diagnosis: jaundice, abdominal pain
Reason for Hospitalization: biliary obstruction
Expected length of stay greater than two midnights?: Yes
ELOS- Estimated Length of Stay in days: 2
I certify the patient meets the requirements for IP care: Yes
PRN Pain Medication Management As Directed
May give lesser potent ordered pain med per pt: Yes
preference::
Protocol:: Medication orders for pain may be administered in a
manner that supports deferring to patient preference
when the pt is:
- Requesting an ordered lesser potent pain medication.
Least to most potent pain medications are defined
as: acetaminophen < NSAID < tramadol < opioids
(morphine, oxycodone, hydromorphone).
- Requesting a lesser dose of the same medication IF
ORDERED.
- Requesting a less intrusive route of administration
if both routes are prescribed by the provider (PO <
IV).
04/07/24 22:42
Code Status As Directed
Resuscitation Status: Full Code
04/07/24 23:00
Flush (0.9% Sodium Chloride) [Flush (Nss)] See Dose Instructions IV PER PROTOCOL
04/08/24 08:00
Amlodipine [Norvasc] 10 mg PO DAILY
Aspirin Low Dose EC [Aspir Low (Enteric Coated)] 81 mg PO DAILY
Lisinopril [Zestril] 2.5 mg PO DAILY
Metoprolol [Lopressor] 100 mg PO BID
Olodaterol HCl [Striverdi Respimat] 2 puff INH R DAILY
Tiotropium Maxwell 2.5 Mcg [Spiriva Respimat 2.5 Mcg] 2 puff INH R DAILY
04/08/24 18:00
Montelukast Sodium [Singulair] 10 mg PO QPM
Rosuvastatin Calcium [Crestor] 10 mg PO QPM
Abnormal Lab Results
04/07/24
21:11
WBC 12.2 H 10^3/uL
(4.8-10.8)
Hgb 11.8 L g/dL
(12.0-16.0)
Hct 35.5 L %
(37.0-47.0)
RDW 15.0 H %
(11.5-14.5)
Abs Immat Gran (auto) 0.1 H 10^3/uL
(0-0.05)
Absolute Neuts (auto) 10.1 H 10^3/uL
(1.4-6.5)
Absolute Lymphs (auto) 0.6 L 10^3/uL
(1.2-3.4)
Absolute Monos (auto) 1.3 H 10^3/uL
(0.1-0.6)
Immature Gran % 0.7 H %
(0-0.5)
Neutrophils % 82.8 H %
(42.2-75.2)
Lymphocytes % 4.7 L %
(20.5-51.1)
Monocytes % 11.0 H %
(1.7-9.3)
Sodium 131 L mmol/L
(135-145)
Chloride 93 L mmol/L
(98-107)
Glucose 139 H mg/dl
(70-99)
Total Bilirubin 9.1 H mg/dl
(0.2-1.3)
Direct Bilirubin 8.2 H mg/dl
(0.0-0.4)
AST 819 H* U/L
(14-36)
ALT 425 H U/L
(0-35)
Alkaline Phosphatase > 2400 H U/L
(38-126)
Lipase 794 H U/L
(23-300)
04/07/24 21:11
04/07/24 21:11
Vital Signs
Initial and Last Documented VS:
Initial Vital Signs
Temp Pulse Resp BP Pulse Ox
36.9 C 108 22 138/69 93
04/07/24 20:42 04/07/24 20:42 04/07/24 20:42 04/07/24 20:42 04/07/24 20:42
Last Documented Vital Signs
Temp Pulse Resp BP Pulse Ox
36.9 C 96 16 125/51 92
04/07/24 20:42 04/07/24 22:30 04/07/24 22:30 04/07/24 22:00 04/07/24 22:30
<Nicky Braswell PA-C - Last Filed: 04/07/24 22:52>
MDM/Problems Addressed
Differential Diagnosis Includes:
Not limited to: Acute pancreatitis secondary to obstructive process, cholecystitis, cholangitis, perforated ulcer, bowel obstruction, etc.
MDM/Problems Addressed:
73-year-old female presenting with acutely worsening upper abdominal pain and jaundice with associated vomiting. No fevers or chills. Patient recently discharged from hospital approximately 2 weeks prior for acute pancreatitis where pancreatic
mass was identified. Vital stable. Patient afebrile. Exam as above. Patient does appear acutely ill in moderate distress due to pain. She is jaundiced. Mild scleral icterus bilaterally. Abdomen moderately tender in upper abdomen and right
upper quadrant> lower abdomen with voluntary guarding. No rebound tenderness. Patient is perfusing well with great distal pulses. Will check basic labs, lipase, Tylenol level. Will give fluids, Zofran, pain control. Differential broad at this
time although given new diagnosis of pancreatic cancer�high suspicion for obstructive process. Patient is afebrile making cholangitis less likely at this time. Lower suspicion for cholecystitis versus gallstones given patient had no identifiable
gallstones on prior imaging during hospitalization. Will closely monitor and reassess. Anticipate admission.
Chronic conditions affecting care:
Pancreatic cancer, lung cancer
Acute Exacerbation and/or Progression of Chronic Illness:
N/A
<Nicky Braswell PA-C - Last Filed: 04/07/24 22:52>
*Pulse Oximetry
Patient hypoxic: no
*EKG
Interpreted by ED Provider?: NA
*Environmental Health Sanitarian Interpretation
Rate: Environmental Health Sanitarian- N/A
*Critical Care Note
Total Time (30-74mins, 75-104mins- exclusive of procedures): Not Applicable
Data Reviewed
Review of Other/Old Records Reveals: Labs and Radiology Studies (Abdominal ultrasound 03/15/24 no evidence of gallstones. Abdomen NRI on 03/19/2024 which showed pancreatic mass)
Further Testing Considered But Not Given:
CT scan abdomen although discussed with radiology will wait for MRCP tomorrow.
<Nicky Braswell PA-C - Last Filed: 04/07/24 22:52>
Patient Management
Discussion with other providers: Hospitalist
Escalation/DeEscalation of care consider admission/obs:
Admit for MRCP/further management and pain control
<Nicky Braswell PA-C - Last Filed: 04/07/24 22:52>
Update Note
Update Note:
Update 10:40 PM: Labs reviewed. Mild leukocytosis of 12.2. Patient has significant elevations in LFTs and an obstructive pattern. Total bilirubin found to be 9.1. Lipase of 794. High suspicion for obstructive process likely secondary to
increasing pancreatic mass. Did order CT for further evaluation although did discuss with radiology who recommended holding off on CT now and planning for MRCP tomorrow given patient will be admitted. Admitted patient to hospital service in stable
condition. Patient will plan for MRCP tomorrow. Patient seen with attending physician.
ED Attending Note
<Nicky Braswell PA-C - Last Filed: 04/07/24 22:52>
-
Portions of this chart may have been created with voice recognition software.� Occasional wrong word or��sound alike� substitutions may have occurred due to the inherent limitations of voice recognition software.
<Derick Grimm MD - Last Filed: 04/07/24 23:00>
ED Attending Note
Patient seen and examined by attending physician: Yes
ED Attending Note:
I have seen and evaluated the patient with a [id number] encounter. I have spoken to the advance practicer provider and involved in the medical history, the physical exam, medical decision making.
Evaluation and management service: agree unless noted differently below.
Results interpretation: agree unless noted differently below.
Focused HPI: 73-year-old female with history as documented notable for adenocarcinoma of the lung, COPD, diabetes, hypertension who presents to the ER for abdominal pain with nausea and vomiting. Patient was just admitted 03/15 until 03/22 for similar
symptoms due to acute pancreatitis. Pancreatitis thought to be related to obstruction from pancreatic mass (unclear whether primary pancreatic mass or metastasis). She says that she felt well for the first day or 2 after discharge and then
symptoms have gradually worsened since then now she is having severe abdominal pain once again worse in the epigastric region. She is having nausea and vomiting and she says she has not been able to eat very much at all for the past few days. She
has had associated constipation. She denies any urinary issues. She denies fever or chills. She has noticed some increasing jaundice over the past few days.
Physical exam: Awake alert, mild pain distress. Vital signs notable for tachycardia and mild tachypnea, otherwise normal. Abdomen soft, mild diffuse tenderness worse in the epigastrium. She is jaundiced with mild scleral icterus.
Medical Decision Makin-year-old female with recent admission for pancreatitis related to pancreatic mass presents with worsening abdominal pain, nausea, vomiting, jaundice. Labs sent off including a CBC which showed slight leukocytosis and
marginal anemia. CMP showed T. bili of 9.1 with significant transaminitis and elevated lipase to 794. She has been on Percocet for pain control recently�checked Tylenol level which was nontoxic. Suspect likely bili obstruction related to mass.
Considered CT but after discussion with radiologist will opt for MR non emergently. Admit to hospitalist, GI consultation.
Discharge Plan
Departure
Patient Disposition: Admit
Date of Disposition: 04/07/24
Time of Disposition: 22:23
Presentation/result/management discussed w/ accepting MD/DO: Hospitalist
Discharge Problem:
Abdominal pain, Elevated LFTs, Hyperbilirubinemia
Interventions
Interventions:
*Risk Screen - Suicide Last Done: 04/07/24 20:42
*General Assessment Last Done: 04/07/24 20:42
*Neglect/Abuse Screening Last Done: 04/07/24 20:42
ED- Fall Risk Assessment Last Done: 04/07/24 21:05
*ED COVID-19 Vaccine History Last Done: 04/07/24 21:05
CE-Vlxekg-Vulakoblqq Assessment Last Done: 04/07/24 21:05
[2024-04-07 21:29] LABS: % Basophils 0.2 % (0-2); % Eosinophils 0.6 % (0-6); % Immature Granulocytes 0.7 % (0-0.5); % Lymphocytes 4.7 % (20.5-51.1); % Neutrophils 82.8 % (42.2-75.2); Absolute Eosinophils 0.1 10^3/uL (0-0.7); Absolute Immature Granulocytes 0.1 10^3/uL (0-0.05); Absolute Lymphocytes 0.6 10^3/uL (1.2-3.4); Absolute Monocytes 1.3 10^3/uL (0.1-0.6); Absolute Neutrophils 10.1 10^3/uL (1.4-6.5); Hematocrit 35.5 % (37.0-47.0); Hemoglobin 11.8 g/dL (12.0-16.0); Mean Corp Hgb Conc. 33.2 g/dL (33.0-37.0); Mean Corpuscular Volume 81.2 fL (81.0-99.0); Mean Platelet Volume 9.8 fL (7.4-10.4); Nucleated Red Blood Cells % 0 %; Platelet Count 283 10^3/uL (130-400); Red Blood Cell Count 4.37 10^6/uL (4.20-5.40); White Blood Cell Count 12.2 10^3/uL (4.8-10.8)
[2024-04-07] MEDS: NSS 1000 IV (21:39)
[2024-04-07] MEDS: DILAUDID 0.25 MG IV (21:42)
[2024-04-07] MEDS: ZOFRAN 4 MG IV (21:42)
[2024-04-07 21:52] LABS: Lactic Acid 1.6 mmol/L (0.7-2.0)
[2024-04-07 22:00] VITALS: BP 125/51
[2024-04-07 22:05] LABS: ALT (SGPT) 425 U/L (0-35); Acetaminophen 13 ug/ml (10-30); Albumin 3.8 g/dl (3.5-5.0); Blood Urea Nitrogen 16 mg/dl (7-17); Calcium 9.6 mg/dl (8.4-10.2); Carbon Dioxide 24 mmol/L (22-30); Chloride 93 mmol/L (98-107); Glucose 139 mg/dl (70-99); Lipase 794 U/L (23-300); Potassium 4.6 mmol/L (3.5-5.1); Sodium 131 mmol/L (135-145); Total Bilirubin 9.1 mg/dl (0.2-1.3); Total Protein 6.3 g/dl (6.3-8.2); eGFR > 60.00
[2024-04-07] MEDS: DILAUDID 0.5 MG IV (22:23)
[2024-04-07 22:29] LABS: AST (SGOT) 819 U/L (14-36); Alkaline Phosphatase > 2400 U/L (38-126)
[2024-04-07 22:45] LABS: Direct Bilirubin 8.2 mg/dl (0.0-0.4)
--- NOTE | 2024-04-07 22:58 | HPS.HSE ---
Family Physician
-
Family Physician: Sommer Pedraza
Chief Complaint
-
Jaundice and abdominal pain
History of Present Illness
This is a 76-year-old with multiple comorbidities including COPD not on home O2, hypertension, hyperlipidemia and type 2 diabetes on insulin who was recently admitted for abdominal pain found to have pancreatitis and diagnosed with a pancreatic mass
status post EUS showing adenocarcinoma was discharged 2 weeks ago now coming in with abdominal pain and jaundice.
Patient reports that after discharge to his ago she still has abdominal pain but it was manageable at home. However over the last 2 to 3 days she has had worsening right upper quadrant abdominal pain that radiates to her upper back bilaterally.
She reported that she had an episode of vomiting today. She stated that her spouse said she will yellow. She denies noticing any changes to the color of her urine or stool. She denies having any diarrhea. No new medications. He has not had any
fevers or chills. She denies feeling dizzy or lightheaded.
In the emergency department she was afebrile blood pressure was stable at 138/69 with a pulse of 108 oxygen saturation was 93%. Chest x-ray shows no pneumothorax no effusion. White count was 11,000 hemoglobin and platelets are within normal
limits. Electrolytes are notable for a sodium of 131 but otherwise unremarkable. She has her rising LFTs with a AST of 819, ALT of 425 and alk phos of 2400. Lipase is down to 794. Total bilirubin is 9.1 up from undetectable antithyroid bilirubin
is 8.2.
Medical History
Past Medical History
Past Medical History: Reports COPD, HTN, Hypercholesterolemia and NIDDM
Additional Past Medical History:
Pancreatic Ca
Lung Ca s/p chemo 2013
Past Surgical History: Reports None
Social History
Tobacco: Former Smoker
Alcohol: None
Drug: None
Personal:
Living: With Family
Employment: Retired
Family History
Family History: Not pertinent
Allergies / Home Medications
Allergies reflects when Allergies were last updated in [facility].
Home Medications with original date entered in [facility]
Allergy/Medication List:
Allergies
Allergy/AdvReac Type Severity Reaction Status Date / Time
Penicillins Allergy Unknown Verified 03/15/24 15:23
Home Medications
aspirin 81 mg tablet,delayed release 81 mg PO DAILY ##0 10/22/12
albuterol sulfate 90 mcg/actuation aerosol inhaler 2 puff inhalation R Q4 PRN sob/wheeze 01/05/14
Medical Marijuana 1 dose PO HSPRN PRN anxiety/sleep 02/09/23
alprazolam 0.25 mg tablet 0.125 - 0.25 mg PO DAILYPRN PRN anxiety 02/09/23
cetirizine 10 mg tablet (Zyrtec) 10 mg PO DAILYPRN PRN allergies 02/09/23
fluticasone propionate 50 mcg/actuation nasal spray,suspension 1 spray intranasal DAILYPRN PRN allergies 02/09/23
glycopyrrolate 9 mcg-formoterol 4.8 mcg HFA aerosol inhaler (Bevespi Aerosphere) 2 puff inhalation R BID Lung/Breathing Issues 02/09/23
montelukast 10 mg tablet 10 mg PO QPM ASTHMA 02/09/23
nitroglycerin 0.4 mg sublingual tablet (Nitrostat) 0.4 mg sublingual [id number] PRN chest pain 02/09/23
rosuvastatin 10 mg tablet 10 mg PO QPM High Cholesterol 12/29/23
amlodipine 10 mg tablet 10 mg PO DAILY Blood Pressure 03/15/24
lisinopril 2.5 mg tablet 2.5 mg PO DAILY Blood Pressure 03/15/24
metformin 500 mg tablet 500 mg PO BID Diabetes 03/15/24
metoprolol tartrate 100 mg tablet 100 mg PO BID Blood Pressure 03/15/24
ondansetron 4 mg disintegrating tablet 4 mg PO Q8H PRN nausea and vomiting #21 tabs 03/21/24
oxycodone-acetaminophen 5 mg-325 mg tablet (Endocet) 1 tab PO Q6H PRN sever pain 3 days #12 tabs 03/21/24
Review of Systems
-
History Source: Patient
Constitutional: Reports No Symptoms
EENT: Reports No Symptoms
Respiratory: Reports No Symptoms
Cardiac: Reports No Symptoms
Abdomen/GI: Reports Abdominal Pain and Nausea
: Reports No Symptoms
Musculoskeletal: Reports No Symptoms
Skin: Reports Other (Jaundice)
Neurological: Reports No Symptoms
Endocrine: Reports No Symptoms
Hematologic/Lymphatic: Reports No Symptoms
Psych: Reports No Symptoms
Physical Exam
Vital Signs
Vital Signs
Temp Pulse Resp BP Pulse Ox
98.5 F 96 16 125/51 92
04/07/24 20:42 04/07/24 22:30 04/07/24 22:30 04/07/24 22:00 04/07/24 22:30
Physical Exam
General: Well Developed and Comfortable
HEENT: NormoCephalic, Atraumatic, PERRLA and Other (icteric sclera)
Respiratory: Clear
Cardiac: S1/S2 and Regular Rhythm
GI: Soft, Non Distended and Normal Bowel Sounds
Rectal: Deferred by Provider
Genito-urinary: Deferred by me
Musculoskeletal: No Clubbing, No Cyanosis and No Edema
Skin: Warm
Neuro: AO x 3
Hematologic/Lymphatic: No Lymphadenopathy
Psych: Calm
Laboratory Results
-
04/07/24 21:11
04/07/24 21:11
Laboratory Results
Lactic Acid 1.6 mmol/L (0.7-2.0) 04/07/24 21:11
Total Bilirubin 9.1 mg/dl (0.2-1.3) H 04/07/24 21:11
AST 819 U/L (14-36) H* 04/07/24 21:11
ALT 425 U/L (0-35) H 04/07/24 21:11
Alkaline Phosphatase > 2400 U/L (38-126) H 04/07/24 21:11
Lipase 794 U/L (23-300) H 04/07/24 21:11
Data Reviewed
-
Diagnostic Radiology: Image Personally Visualized and interpreted
Medical Tests (Nuc Med, Echo, EKG etc): Report Reviewed by me
Lab Data: Labs Reviewed by me
Old Records: Reviewed
Impression/Plan
-
IMPRESSION:
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 She is status post EUS with biopsy results showing adenocarcinoma. She was seen in the
hospital 2 weeks ago with abdominal pain and was subsequently diagnosed as above following extensive imaging studies. Patient now returns with worsening abdominal pain and new onset jaundice. The prior studies including abdominal MRI showed 'There
is long segment narrowing of the common bile duct secondary to extrinsic compression by the pancreatic lesion.' It is likely that this new jaundice is related to the affirmation finding.
PLAN:
1. Juandice -jaundice and abdominal pain likely secondary to extrinsic compression of the common bile duct by the pancreatic mass. No signs of an acute infection. Patient doing better after 2 doses of IV Dilaudid and antiemetics. She also
received a liter of IV fluids.
- admit to med-surg
- clear liquid diet for now
- maintenance iv fluids
- continue antiemetics and pain control
- mrcp in am
- GI consultation
2. DM II
- hold metformin
- sliding scale insulin achs
3. HTN
- continue home antihypertensives
4. COPD - Patient o2 sat dropped after 0.75 of iv dilaudid. On my evaluation she was satting 98% on 2L without any increased wob, wheezing or crackles. Xray is clear.
- continue home glycopyrrolate/formoterol
- prn albuterol
- continue montelukast
DVT PPX - lovenox sq
Code status - DNR
[2024-04-07 23:00] VITALS: BP 126/52
--- NOTE | 2024-04-08 01:00 | PTCARENOTE ---
Pt arrived to [facility] from ED at 0050 on a stretcher and walked to the bed. Pt c/o 04/18 RUQ abdominal pain and guarding. Full head to toe complete. LR started through the Left port at 100mL/hr. Pt oriented to room. Bed locked and in lowest position.
Call rodgers within reach. Will continue to monitor.
[2024-04-08 01:01] VITALS: BP 146/69; BMI 22.5
[2024-04-08] MEDS: DILAUDID 0.5 MG IV (01:38)
[2024-04-08] MEDS: LR 1000 IV ×3 (01:41→22:58)
[2024-04-08 01:45] LABS: Glucose - Point of Care 119 mg/dl (70-99)
[2024-04-08] MEDS: DILAUDID 1 MG IV ×3 (03:53→11:08)
[2024-04-08 05:01] LABS: Hematocrit 33.1 % (37.0-47.0); Hemoglobin 11.1 g/dL (12.0-16.0); Mean Corp Hgb Conc. 33.5 g/dL (33.0-37.0); Mean Corpuscular Hgb 27.7 pg (27.0-31.0); Mean Corpuscular Volume 82.5 fL (81.0-99.0); Mean Platelet Volume 9.6 fL (7.4-10.4); Platelet Count 230 10^3/uL (130-400); Red Blood Cell Count 4.01 10^6/uL (4.20-5.40); Red Cell Dist. Width 15.2 % (11.5-14.5); White Blood Cell Count 11.3 10^3/uL (4.8-10.8)
[2024-04-08 05:31] LABS: Blood Urea Nitrogen 13 mg/dl (7-17); Calcium 8.8 mg/dl (8.4-10.2); Carbon Dioxide 22 mmol/L (22-30); Chloride 98 mmol/L (98-107); Estimated Creatinine Clearance 62 ml/min; Glucose 119 mg/dl (70-99); Potassium 4.4 mmol/L (3.5-5.1); Sodium 134 mmol/L (135-145); eGFR > 60.00
--- NOTE | 2024-04-08 07:01 | CON.GI ---
Addendum entered and electronically signed by Meredith Tracy MD 04/08/24 12:15:
I saw and examined the patient.
The [employer]'s note was reviewed and I agree with the note.
Comment: This is a 73-year-old female who has past medical history of lung adenocarcinoma dx 2013 and s/p chemo and recently admitted from 03/15-03/22 with symptoms of abdominal pain and pancreatitis and was noted to have a pancreatic mass on MRI with
possible liver mets she then had an endoscopic ultrasound with FNA and pathology showed poorly differentiated carcinoma and she had followed up with oncology Dr. Washington. she now presents with worsening abdominal pain and jaundice and significantly
elevated LFTs compared to recent admission lipase is trending down. No fevers or chills. She complains of epigastric and right upper quadrant pain.
Assessment and plan worsening abdominal pain with worsening obstructive jaundice with known history of pancreatic mass with possible liver mets and biliary obstruction from recent imaging and EUS. Initially it was thought to be possibly metastatic
recurrent lung adenocarcinoma versus primary pancreatic adenocarcinoma, clinically seems to be more primary pancreatic adenocarcinoma related biliary obstruction. Will schedule for ERCP with stent placement tomorrow discussed with Dr. Weaver.
Discussed with Dr. Gallegos also who will increase her pain medications she is having significant pain currently and also elevated INR likely related to liver mets and malnutrition will give vitamin K also. Currently has no signs of cholangitis.
Will hold her statin also for now.
Addendum entered and electronically signed by YASSINE De La Rosa 04/08/24 09:02:
will add INR prior to procedure
Original Note:
Consultation
-
Date/Time Consultation Requested: 04/08/24 0100
Date/Time Consultation Performed: 04/08/24 0700
Requesting Provider: Alfredo Bae MD
Performing Provider: YASSINE Sparks, Meredith Tracy MD
Reason for Consultation: abdominal pain increased LFT's
Medical History
Chief Complaint / HPI
Chief Complaint: Abdominal pain
History of Present Illness:
Pt is a 73yo with past medical history of lung adenocarcinoma, thoracic aortic aneurysm, hypertension, hyperlipidemia, diabetes, pneumonia with recent admission 03/15-03/22 with abdominal pain and elevated lipase. She was noted with increased Ca19-9
along with elevated LFT's and lipase. She completed MR with concern for pancreatic head/uncinate mass but also noted hepatic mets and long segment of narrowing of CBD with extrinsic compression by panc lesion with BG distention. She completed EUS
with biopsy with + likely mets from lung. she now returns for abdominal pain, vomiting and jaundice. On admission she is noted with WBC 12,200 with bili 9.1, AST 819, ALT 425, alk phos >42076 with lipase 794 (prior labs 03/20 with bili 1,2, AST 67,
ALT 35, alk phos 252 and lipase >4000).
At this time patient admits to decreased appetite with nausea, dry heaves and RUQ pain. She also admits to constipation with pain med use with no stools for several days. She denies dysphagia, diarrhea, or rectal bleeding. She has seen
[facility] in follow up and spouse admits leaning towards palliative care approach and holding chemo.
Past Medical History
Past Medical History: Cancer (Lung cancer), COPD, HTN, Hypercholesterolemia, NIDDM and Other (Pneumonia, thoracic aortic aneurysm)
Past Surgical History: Gynecological (Hysterectomy) and Other (Bilateral carpal tunnel repair, sinus surgery)
Social History
Tobacco: Former Smoker
Alcohol: None
Drug: None
Personal:
Living: With Family
Employment: Not Employed
Family History
Family History: Other (No family history of colon cancer or gastric cancer. Mother of pancreatic cancer in her 70s.Maternal aunts with either pancreatic or breast cancer. )
Allergies / Home Medications
Allergy/AdvReac Type Severity Reaction Status Date / Time
Penicillins Allergy Unknown Verified 03/15/24 15:23
�Medication �Instructions �Recorded
aspirin 81 mg tablet,delayed 81 mg PO DAILY ##0 10/22/12
release
albuterol sulfate 90 mcg/actuation 2 puff inhalation R Q4 PRN 01/05/14
aerosol inhaler sob/wheeze
Medical Marijuana 1 dose PO HSPRN PRN anxiety/sleep 02/09/23
alprazolam 0.25 mg tablet 0.125 - 0.25 mg PO DAILYPRN PRN 02/09/23
anxiety
cetirizine 10 mg tablet (Zyrtec) 10 mg PO DAILYPRN PRN allergies 02/09/23
fluticasone propionate 50 1 spray intranasal DAILYPRN PRN 02/09/23
mcg/actuation nasal allergies
spray,suspension
glycopyrrolate 9 mcg-formoterol 2 puff inhalation R BID 02/09/23
4.8 mcg HFA aerosol inhaler Lung/Breathing Issues
(Bevespi Aerosphere)
montelukast 10 mg tablet 10 mg PO QPM ASTHMA 02/09/23
nitroglycerin 0.4 mg sublingual 0.4 mg sublingual [id number] PRN 02/09/23
tablet (Nitrostat) chest pain
rosuvastatin 10 mg tablet 10 mg PO QPM High Cholesterol 12/29/23
amlodipine 10 mg tablet 10 mg PO DAILY Blood Pressure 03/15/24
lisinopril 2.5 mg tablet 2.5 mg PO DAILY Blood Pressure 03/15/24
metformin 500 mg tablet 500 mg PO BID Diabetes 03/15/24
metoprolol tartrate 100 mg tablet 100 mg PO BID Blood Pressure 03/15/24
ondansetron 4 mg disintegrating 4 mg PO Q8H PRN nausea and 03/21/24
tablet vomiting #21 tabs
oxycodone-acetaminophen 5 mg-325 1 tab PO Q6H PRN sever pain 3 days 03/21/24
mg tablet (Endocet) #12 tabs
Review of Systems
-
History Source: Patient and Family
Constitutional: Reports No Symptoms
EENT: Reports No Symptoms
Respiratory: Reports No Symptoms
Cardiac: Reports No Symptoms
Abdomen/GI: Reports Abdominal Pain, Nausea, Vomiting and Constipated
: Reports Dark Urine
Musculoskeletal: Reports No Symptoms
Neurological: Reports Weakness
Endocrine: Reports No Symptoms
Hematologic/Lymphatic: Reports No Symptoms
Vital Signs
Temp Pulse Resp BP Pulse Ox
97.8 F 107 22 146/69 99
04/08/24 01:01 04/08/24 01:01 04/08/24 01:01 04/08/24 01:01 04/08/24 01:01
Physical Exam
Exam
General: Well Developed and Well Nourished
HEENT: Normocephalic and Other (jaundice )
Respiratory: Clear
Cardiac: Regular Rhythm
GI: Soft, Tender and Distended
Musculoskeletal: No Clubbing and No Cyanosis
Skin: Warm and Dry
Neuro: Awake, Alert and AO x 3
Psych: Calm
Results
WBC 11.3 10^3/uL (4.8-10.8) H 04/08/24 04:36
Hgb 11.1 g/dL (12.0-16.0) L 04/08/24 04:36
Hct 33.1 % (37.0-47.0) L 04/08/24 04:36
MCV 82.5 fL (81.0-99.0) 04/08/24 04:36
Plt Count 230 10^3/uL (130-400) 04/08/24 04:36
Absolute Neuts (auto) 10.1 10^3/uL (1.4-6.5) H 04/07/24 21:11
Sodium 134 mmol/L (135-145) L 04/08/24 04:36
Potassium 4.4 mmol/L (3.5-5.1) 04/08/24 04:36
Chloride 98 mmol/L (98-107) 04/08/24 04:36
Carbon Dioxide 22 mmol/L (22-30) 04/08/24 04:36
BUN 13 mg/dl (7-17) 04/08/24 04:36
Creatinine 0.6 mg/dL (0.6-1.0) 04/08/24 04:36
Calcium 8.8 mg/dl (8.4-10.2) 04/08/24 04:36
Total Bilirubin 9.1 mg/dl (0.2-1.3) H 04/07/24 21:11
AST 819 U/L (14-36) H* 04/07/24 21:11
ALT 425 U/L (0-35) H 04/07/24 21:11
Alkaline Phosphatase > 2400 U/L (38-126) H 04/07/24 21:11
Lipase 794 U/L (23-300) H 04/07/24 21:11
Diagnostic Image Results:
03/19/24 MR abd with and without contrast
1.There is a slightly ill-defined hypoenhancing lesion within the pancreatic head/uncinate process measuring approximately 2.9 x 2.4 cm with associated mild local mass effect. 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 There
is narrowing of the adjacent main pancreatic duct with mild prominence of the duct within the body and tail. This lesion appears to abut the posterior aspect of the main portal vein without discrete invasion. No evidence of involvement of the
superior mesenteric artery.
2.There are peripherally enhancing lesions within the right hepatic lobe measuring 2.0 cm and 1.5 cm which are new and most consistent with hepatic metastases.
3. There is long segment narrowing of the common bile duct secondary to extrinsic compression by the pancreatic lesion. The gallbladder appears mildly distended.
4. 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 Dilated infrarenal abdominal aorta measuring up to 2.6 cm, similar to prior. Chronic infrarenal aortic dissection.
03/15/24 US abdomen
Focus of heterogeneous echogenicity within the fundus of the gallbladder. Correlating with prior examinations, this is compatible with fundal adenomyomatosis. No gallstones are identified.
Hypoechoic focus within the head of the pancreas, with no internal color flow. Given the clinical history, this is probably a focal area of pancreatitis, and possibly representing a developing pseudocyst or abscess. Continued follow-up is
recommended.
:
03/21/24 EUS - A mass was identified in the pancreatic head. This
was staged T2 Nx Mx by endosonographic criteria. Fine
needle aspiration performed.
- One enlarged lymph node was visualized in the mere
hepatis region.
- Hyperechoic material consistent with sludge was
visualized endosonographically in the gallbladder body.
- There was no sign of significant pathology in the
ampulla.
- There was no evidence of significant pathology in
the left lobe of the liver.
bx + malignancy with concern for lung mets
Prior GI Procedures:
EGD: never
Colonoscopy: Approximately 10 years ago. Does not recall results. Not at this institution.
Assessment / Plan
-
Pt is a 73yo with past medical history of lung adenocarcinoma, thoracic aortic aneurysm, hypertension, hyperlipidemia, diabetes, pneumonia with recent admission 03/15-03/22 with abdominal pain and elevated lipase. She was noted with increased Ca19-9
along with elevated LFT's and lipase. She completed MR with concern for pancreatic head/uncinate mass but also noted hepatic mets and long segment of narrowing of CBD with extrinsic compression by panc lesion with BG distention. She completed EUS
with biopsy with + likely mets from lung. she now returns for abdominal pain, vomiting and jaundice. On admission she is noted with WBC 12,200 with bili 9.1, AST 819, ALT 425, alk phos >82201 with lipase 794 (prior labs 03/20 with bili 1,2, AST 67,
ALT 35, alk phos 252 and lipase >4000).
-abdominal pain
-nausea/vomiting
-marked rise in LFT's
-metastatic lung CA with recent panc lesion noted and liver mets
-long segment of narrowing with extrinsic compression
-recent pancreatitis with pancreatic mass
-constipation
other med problems:
-DM
-Abdominal aneurysm
-HTN
-COPD
PLAN:
etiology for abdominal pain related to metastatic disease vs other
noted concern for obstructive jaundice with marked rise in LFT's
plan for US then possible ERCP with stenting later today vs tomorrow
cont management of pain per hospitalist
add Zofran PRN with dry heave
clears then NPO for lunch
trend labs
add miralax and dulcolax with constipation
per pt and spouse recent oncology visit with talk of palliative care-- consider inpatient palliative care consult
support given as pt frustrated with ongoing abdominal pain
-
-
Thank you for consultation and allowing me to participate in the patient's care. Please call the production finisher GI physician during the after hours with any questions or concerns.
[2024-04-08 07:10] VITALS: BP 143/83
[2024-04-08] MEDS: ZOFRAN 4 MG IV (08:43)
[2024-04-08] MEDS: SPIRIVA RESPIMAT 2.5 MCG INH (08:43)
[2024-04-08] MEDS: STRIVERDI RESPIMAT INH (08:43)
[2024-04-08 08:53] LABS: Glucose - Point of Care 129 mg/dl (70-99)
[2024-04-08 09:42] LABS: INR 2.06; PT 23.1 Sec (11.4-14.6)
[2024-04-08] MEDS: DULCOLAX 10 MG RECTAL (11:06)
[2024-04-08 11:57] VITALS: BMI 22.5
[2024-04-08] MEDS: ASPIR LOW (ENTERIC COATED) PO (12:11)
[2024-04-08 12:12] LABS: Glucose - Point of Care 141 mg/dl (70-99)
[2024-04-08] MEDS: ZESTRIL 2.5 MG PO (12:13)
[2024-04-08] MEDS: LOPRESSOR 100 MG PO ×2 (12:13→20:20)
[2024-04-08] MEDS: NORVASC 10 MG PO (12:14)
[2024-04-08] MEDS: MIRALAX 17 GRAMS PO (12:14)
[2024-04-08] MEDS: MEPHYTON 10 MG PO (12:55)
[2024-04-08] MEDS: DILAUDID 2 MG IV ×3 (14:40→22:25)
[2024-04-08 15:37] VITALS: BP 137/56
--- NOTE | 2024-04-08 15:39 | W.PN.HOSP.TC ---
Today's Communication/Plan
-
Pain control
IV fluids
Antiemetics pain
Vitamin K in anticipation of ERCP with biliary stent on 04/09
Ongoing goals of care discussions
Assessment / Plan
Assessment / Plan
Impression:
Obstructive jaundice
Severe abdominal pain
Pancreatic mass
Coagulopathy
Other conditions:
Metastatic lung carcinoma.
Diabetes type 2.
Hypertension.
Abdominal aortic aneurysm
COPD
Plan:
Abdominal pain and obstructive jaundice.
Recently diagnosed pancreatic head mass with biopsy consistent of malignancy possibly metastatic from lung, also could not exclude primary pancreatic tumor.
Abdominal ultrasound: Pancreatic head mass likely malignancy. Slightly enlarged. New associated mild intra and extrahepatic biliary dilatation. CBD size 10 cm.
MR Abdomen W/o & W Contrast
1.There is a slightly ill-defined hypoenhancing lesion within the pancreatic head/uncinate process measuring approximately 2.9 x 2.4 cm with associated mild local mass effect. 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 There
is narrowing of the adjacent main pancreatic duct with mild prominence of the duct within the body and tail. This lesion appears to abut the posterior aspect of the main portal vein without discrete invasion. No evidence of involvement of the
superior mesenteric artery.
2.There are peripherally enhancing lesions within the right hepatic lobe measuring 2.0 cm and 1.5 cm which are new and most consistent with hepatic metastases.
3. There is long segment narrowing of the common bile duct secondary to extrinsic compression by the pancreatic lesion. The gallbladder appears mildly distended.
4. 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 Dilated infrarenal abdominal aorta measuring up to 2.6 cm, similar to prior. Chronic infrarenal aortic dissection.
Suspect primary pancreatic malignancy with biliary obstruction.
Discussed with gastroenterology.
Plan is for ERCP with stent placement tentatively on 04/09.
Continue adjustment of analgesic regimen with IV Dilaudid/oral oxycodone
Continue antiemetics
Clear liquid diet.
Hold statin.
Hold Lovenox in anticipation of ERCP
Coagulopathy with INR 2.06. Vitamin K provided
With advanced malignancy, overall poor performance status, poor candidate for systemic treatment, family considering hospice consultation
Type 2 diabetes.
Hold metformin.
COPD without exacerbation.
Respiratory status stable.
Episode of desaturation likely secondary to severe pain.
Continue oxygen supplementation if required.
Continue home medication regimen including Bevespi, methadone, albuterol, montelukast
Essential hypertension.
Continue Norvasc, Zestril, Lopressor
Anticipated Discharge: > 48 hours
Subjective/Interval History
-
Date of Service: April 08, 2024
Objective Data
-
Labs:
Laboratory Results
04/08/24 04/08/24
04:36 09:14
WBC 11.3 H
Hgb 11.1 L
Hct 33.1 L
Plt Count 230
PT 23.1 H
INR 2.06
Sodium 134 L
Potassium 4.4
Chloride 98
Carbon Dioxide 22
BUN 13
Creatinine 0.6
Glucose 119 H
Calcium 8.8
Vital Signs:
Vital Signs
Temp Pulse Resp BP Pulse Ox
98.6 F 114 16 137/56 97
04/08/24 15:37 04/08/24 15:37 04/08/24 15:37 04/08/24 15:37 04/08/24 15:37
I&O
04/07/24 04/08/24 04/09/24
06:59 06:59 06:59
Intake Total 840 / 840
Balance 840 / 840
Physical Exam
-
General: Well Developed, Well Nourished and No Apparent Distress
HEENT: Normocephalic, Atraumatic and Moist Mucous Membranes
Respiratory: Negative Wheezes (coarse BS with coughing on forced expiration)
Cardiac: Regular Rhythm and S1/S2
GI: Soft, Nondistended, Normal Bowel Sounds and Tender (most tender medial RUQ)
Musculoskeletal: No Clubbing, No Cyanosis and No Edema
Skin: Jaundice
Neuro: Awake, Alert and Oriented
--- NOTE | 2024-04-08 16:20 | CM ---
Met with pt at bedside
Pt reports she lives in a 2 story home with her son and grandson
Independent, driving; son assists with board finisher
DME - rolling walker, nebulizer, cane
SNF - denies past hx
HH - has had in past, unable to recall agency
Has ride at discharge
PCP - Sommer Pedraza
Pharm - [facility]
Plan - anticipate home no needs vs w/HH
[2024-04-08 18:20] LABS: Glucose - Point of Care 135 mg/dl (70-99)
[2024-04-08] MEDS: SINGULAIR PO ×2 (18:27→18:33)
[2024-04-08 21:00] VITALS: BP 135/70
[2024-04-08 23:01] VITALS: BP 136/63
[2024-04-08 23:59] LABS: Glucose - Point of Care 117 mg/dl (70-99)
[2024-04-09] VITALS (13 sets, daily range): BP systolic 100–132; BP diastolic 43–70
[2024-04-09 01:29] LABS: Hepatitis C Antibody Negative (Negative)
[2024-04-09] MEDS: ZOFRAN 4 MG IV ×2 (05:21→12:50)
[2024-04-09] MEDS: DILAUDID 2 MG IV ×3 (05:21→12:49)
[2024-04-09 06:35] LABS: PT 17.9 Sec (11.4-14.6)
[2024-04-09 06:37] LABS: Hematocrit 33.2 % (37.0-47.0); Hemoglobin 11.3 g/dL (12.0-16.0); Mean Corpuscular Hgb 27.2 pg (27.0-31.0); Mean Platelet Volume 10.1 fL (7.4-10.4); Platelet Count 293 10^3/uL (130-400); Red Blood Cell Count 4.15 10^6/uL (4.20-5.40); White Blood Cell Count 18.3 10^3/uL (4.8-10.8)
[2024-04-09 06:53] LABS: ALT (SGPT) 547 U/L (0-35); Albumin 3.2 g/dl (3.5-5.0); Blood Urea Nitrogen 13 mg/dl (7-17); Calcium 8.8 mg/dl (8.4-10.2); Carbon Dioxide 23 mmol/L (22-30); Chloride 91 mmol/L (98-107); Estimated Creatinine Clearance 62 ml/min; Glucose 142 mg/dl (70-99); Potassium 3.7 mmol/L (3.5-5.1); Sodium 131 mmol/L (135-145); Total Bilirubin 13.1 mg/dl (0.2-1.3); Total Protein 5.6 g/dl (6.3-8.2); eGFR > 60.00
[2024-04-09] MEDS: SPIRIVA RESPIMAT 2.5 MCG 2 PUFF INH (06:59)
[2024-04-09 07:00] LABS: AST (SGOT) 1115 U/L (14-36); Alkaline Phosphatase > 2400 U/L (38-126)
[2024-04-09] MEDS: STRIVERDI RESPIMAT 2 PUFF INH (07:00)
[2024-04-09 08:07] LABS: Glucose - Point of Care 132 mg/dl (70-99)
[2024-04-09] MEDS: LR 1000 IV ×2 (08:49→21:22)
[2024-04-09] MEDS: LOPRESSOR 100 MG PO ×2 (08:50→20:36)
[2024-04-09] MEDS: NORVASC 10 MG PO (08:50)
[2024-04-09] MEDS: ZESTRIL 2.5 MG PO (08:50)
[2024-04-09] MEDS: ASPIR LOW (ENTERIC COATED) PO (08:50)
[2024-04-09] MEDS: MIRALAX PO (08:50)
--- NOTE | 2024-04-09 10:09 | CON.ONC ---
Impression
Impression
metastatic lung cancer
obstructive jaundice from met
abdominal pain
Plan
Plan
For ERCP/stent today
pain control
briefly discussed goals of care w/ patient, and w/ niece Sommer alone
She's concerned about QOL and treatment side effects, may best be served by hospice
She has minimal support at home and niece lives in [place], may need placement
will continue GOC discussions after ERCP
Patient History
History of Present Illness
73yo F w/ metastatic lung cancer, well known to me from the office for the past 10 years since initial diagnosis. She was recently on oral therapy w/ Lumakras, until several weeks ago when she was found to have metastatic disease to pancreas and
liver, bx most c/w metastatic lung cancer. I saw her in the office last week and we discussed goals of care. She wanted to try single agent Gemzar. Outpatient labs showed bump in LFTs, so US was ordered, but she developed increasing pain and
jaundice and presented to the ER yesterday, where US was done showing biliary dilatation. She's scheduled for ERCP/stenting today. She's needing dilaudid to help manage pain. Her ortega Novoa is at the bedside
Past-Medical/Surgical History
Lung cancer, as above
Anxiety
HTN
COPD
Patient Medication
�Medication �Instructions �Recorded �Confirmed �Last Taken �Type
aspirin 81 mg tablet,delayed 81 mg PO DAILY ##0 10/22/12 04/07/24 03/15/24 Rx
release
albuterol sulfate 90 mcg/actuation 2 puff inhalation R Q4 PRN 01/05/14 04/07/24 01/05/14 History
aerosol inhaler sob/wheeze
Medical Marijuana 1 dose PO HSPRN PRN anxiety/sleep 02/09/23 04/07/24 03/14/24 History
alprazolam 0.25 mg tablet 0.125 - 0.25 mg PO DAILYPRN PRN 02/09/23 04/07/24 Unknown History
anxiety
cetirizine 10 mg tablet (Zyrtec) 10 mg PO DAILYPRN PRN allergies 02/09/23 04/07/24 Unknown History
fluticasone propionate 50 1 spray intranasal DAILYPRN PRN 02/09/23 04/07/24 Unknown History
mcg/actuation nasal allergies
spray,suspension
glycopyrrolate 9 mcg-formoterol 2 puff inhalation R BID 02/09/23 04/07/24 03/15/24 History
4.8 mcg HFA aerosol inhaler Lung/Breathing Issues
(Bevespi Aerosphere)
montelukast 10 mg tablet 10 mg PO QPM ASTHMA 02/09/23 04/07/24 03/14/24 History
nitroglycerin 0.4 mg sublingual 0.4 mg sublingual [id number] PRN 02/09/23 04/07/24 Unknown History
tablet (Nitrostat) chest pain
rosuvastatin 10 mg tablet 10 mg PO QPM High Cholesterol 12/29/23 04/07/24 03/14/24 History
amlodipine 10 mg tablet 10 mg PO DAILY Blood Pressure 03/15/24 04/07/24 03/15/24 History
lisinopril 2.5 mg tablet 2.5 mg PO DAILY Blood Pressure 03/15/24 04/07/24 03/15/24 History
metformin 500 mg tablet 500 mg PO BID Diabetes 03/15/24 04/07/24 03/15/24 History
metoprolol tartrate 100 mg tablet 100 mg PO BID Blood Pressure 03/15/24 04/07/24 03/15/24 History
ondansetron 4 mg disintegrating 4 mg PO Q8H PRN nausea and 03/21/24 04/07/24 Unknown Rx
tablet vomiting #21 tabs
oxycodone-acetaminophen 5 mg-325 1 tab PO Q6H PRN sever pain 3 days 03/21/24 04/07/24 Unknown Rx
mg tablet (Endocet) #12 tabs
Active Medications
Generic Name Dose Route Start Last Admin
Trade Name Freq PRN Reason Stop Dose Admin
Acetaminophen 650 mg 04/08/24 01:03
Acetaminophen 325 Mg Tablet PO 05/06/24 01:02
Q4HPRN PRN
mild pain/QUEEN/temp> 100.4F
Albuterol 2 puff 04/07/24 22:38
Albuterol Hfa [90 Mcg/Dose] Inhaler INH
R Q4HPRN PRN
sob/wheeze
Protocol
Alprazolam 0.125 mg 04/07/24 22:38
Alprazolam 0.25 Mg Tablet PO 05/05/24 22:37
DAILYPRN PRN
anxiety
Amlodipine Besylate 10 mg 04/08/24 08:00 04/09/24 08:50
Amlodipine 10 Mg Tablet PO 05/06/24 07:59 10 mg
DAILY JANNETTE Administration
Aspirin 81 mg 04/08/24 08:00 04/09/24 08:50
Aspirin 81 Mg (Enteric Coated) Tablet PO 05/06/24 07:59 Not Given
DAILY JANNETTE
Bisacodyl 10 mg 04/08/24 01:03
Bisacodyl 10 Mg Rectal Suppository RECTAL 05/06/24 01:02
[id number] PRN
constipation
Cetirizine HCl 10 mg 04/07/24 22:38
Cetirizine Hcl 10 Mg Tablet PO 05/05/24 22:37
DAILYPRN PRN
allergies
Dextrose 12.5 grams 04/08/24 04:35
Dextrose 50% (0.5 Grams/Ml) 50 Ml Syringe IV 05/06/24 04:34
[id number] PRN
hypoglycemia
Protocol
Enoxaparin Sodium 30 mg 04/08/24 18:00
Enoxaparin Sodium 30 Mg/0.3 Ml Syringe SC 05/06/24 17:59
QPM JANNETTE
Glucagon 1 mg 04/08/24 04:35
Glucagon 1 Mg Vial IM 05/06/24 04:34
PRN PRN
hypoglycemia
Protocol
Heparin Sodium (Porcine) 500 unit 04/09/24 07:15
Heparin Flush Pf (100 Unit/Ml) 5 Ml Syringe IV 05/07/24 07:14
PER PROTOCOL JANNETTE
Hydromorphone HCl 2 mg 04/08/24 11:48 04/09/24 09:48
Hydromorphone 1 Mg/Ml Carpuject IV 04/22/24 03:51 2 mg
Q3HPRN PRN Administration
severe pain
Insulin Aspart 0 units 04/09/24 08:08
Insulin Aspart Low Resistance 300 Units/3 Ml Pen.Injctr SC 05/06/24 07:29
Q6 JANNETTE
Protocol
Lisinopril 2.5 mg 04/08/24 08:00 04/09/24 08:50
Lisinopril 2.5 Mg Tablet PO 05/06/24 07:59 2.5 mg
DAILY JANNETTE Administration
Metoprolol Tartrate 100 mg 04/08/24 08:00 04/09/24 08:50
Metoprolol 100 Mg Regular Release Tablet PO 05/06/24 07:59 100 mg
BID JANNETTE Administration
Montelukast Sodium 10 mg 04/08/24 18:00 04/08/24 18:33
Montelukast Sodium 10 Mg Tablet PO 05/06/24 17:59 Not Given
QPM JANNETTE
Olodaterol 2 puff 04/08/24 08:00 04/09/24 07:00
Olodaterol (Striverdi Respimat) 2.5 Mcg Inhaler INH 05/06/24 07:59 2 puff
R DAILY JANNETTE Administration
Ondansetron HCl 4 mg 04/08/24 01:03 04/09/24 05:21
Ondansetron 4 Mg/2 Ml Vial IV 05/06/24 01:02 4 mg
Q6HPRN PRN Administration
nausea and vomiting
Oxycodone HCl 10 mg 04/08/24 12:00 04/09/24 06:05
Oxycodone 5 Mg Regular Release Tablet PO 04/22/24 11:59 Not Given
Q6H JANNETTE
Polyethylene Glycol 17 grams 04/08/24 01:03
Polyethylene Glycol Powder 17 Grams Packet PO 05/06/24 01:02
DAILYPRN PRN
constipation
Polyethylene Glycol 17 grams 04/08/24 09:00 04/09/24 08:50
Polyethylene Glycol Powder 17 Grams Packet PO 05/06/24 08:59 Not Given
DAILY JANNETTE
Prochlorperazine Edisylate 10 mg 04/08/24 11:42
Prochlorperazine 10 Mg/2 Ml Vial IV 05/06/24 11:41
Q6HPRN PRN
nausea and vomiting
Rosuvastatin Calcium 10 mg 04/08/24 18:00
Rosuvastatin (Crestor) 10 Mg Tablet PO 05/06/24 17:59
QPM JANNETTE
Senna/Docusate Sodium 1 tablet 04/08/24 01:03
Docusate W/Senna (Desiree-Colace) Tablet PO 05/06/24 01:02
BIDPRN PRN
constipation
Sodium Chloride 0 flush 04/07/24 23:00
Sodium Chloride 0.9% (Flush) Syringe IV 05/05/24 22:59
PER PROTOCOL JANNETTE
Tiotropium Gerlach 2 puff 04/08/24 08:00 04/09/24 06:59
Tiotropium (Spiriva Respimat) 2.5 Mcg Inhaler INH 05/06/24 07:59 2 puff
R DAILY JANNETTE Administration
Review of Systems
-
All Other Systems: Reviewed and Negative
Physical Exam
-
General: Appears in Distress; Negative Comfortable
HEENT: Jaundice
Neurology: Non Focal
Skin: Warm and Dry
Psych: Intact Judgement/Insight
Labs
Lab Results
WBC 18.3 10^3/uL (4.8-10.8) H 04/09/24 05:42
RBC 4.15 10^6/uL (4.20-5.40) L 04/09/24 05:42
Hgb 11.3 g/dL (12.0-16.0) L 04/09/24 05:42
Hct 33.2 % (37.0-47.0) L 04/09/24 05:42
MCV 80.0 fL (81.0-99.0) L 04/09/24 05:42
MCH 27.2 pg (27.0-31.0) 04/09/24 05:42
MCHC 34.0 g/dL (33.0-37.0) 04/09/24 05:42
RDW 15.0 % (11.5-14.5) H 04/09/24 05:42
Plt Count 293 10^3/uL (130-400) D 04/09/24 05:42
MPV 10.1 fL (7.4-10.4) 04/09/24 05:42
Abs Immat Gran (auto) 0.1 10^3/uL (0-0.05) H 04/07/24 21:11
Absolute Neuts (auto) 10.1 10^3/uL (1.4-6.5) H 04/07/24 21:11
Absolute Lymphs (auto) 0.6 10^3/uL (1.2-3.4) L 04/07/24 21:11
Absolute Monos (auto) 1.3 10^3/uL (0.1-0.6) H 04/07/24 21:11
Absolute Eos (auto) 0.1 10^3/uL (0-0.7) 04/07/24 21:11
Absolute Basos (auto) 0.0 10^3/uL (0-0.2) 04/07/24 21:11
Immature Gran % 0.7 % (0-0.5) H 04/07/24 21:11
Neutrophils % 82.8 % (42.2-75.2) H 04/07/24 21:11
Lymphocytes % 4.7 % (20.5-51.1) L 04/07/24 21:11
Monocytes % 11.0 % (1.7-9.3) H 04/07/24 21:11
Eosinophils % 0.6 % (0-6) 04/07/24 21:11
Basophils % 0.2 % (0-2) 04/07/24 21:11
Creatinine 0.4 mg/dL (0.6-1.0) L 04/09/24 05:42
Vital Signs
Vital Signs
Temp Pulse Resp BP Pulse Ox
98.8 F 105 17 129/63 97
04/09/24 07:45 04/09/24 07:45 04/09/24 07:45 04/09/24 07:45 04/09/24 08:00
[2024-04-09 12:03] LABS: Glucose - Point of Care 160 mg/dl (70-99)
[2024-04-09] MEDS: NOVOLOG FLEXPEN-LOW RESISTANCE 300 UNITS SC (12:41)
--- NOTE | 2024-04-09 16:08 | W.PN.HOSP.TC ---
Today's Communication/Plan
-
ERCP and biliary stent placement.
Follow up LFT.
Current analgesic regimen is adequate on IV Dilaudid alone and need to be reassessed postprocedure and according to goals of care.
Discussed with patient's niece at the bedside
Assessment / Plan
Assessment / Plan
Impression:
Obstructive jaundice
Severe abdominal pain
Pancreatic mass
Coagulopathy
Other conditions:
Metastatic lung carcinoma.
Diabetes type 2.
Hypertension.
Abdominal aortic aneurysm
COPD
Plan:
Abdominal pain and obstructive jaundice.
Recently diagnosed pancreatic head mass with biopsy consistent of malignancy possibly metastatic from lung, also could not exclude primary pancreatic tumor.
Abdominal ultrasound: Pancreatic head mass likely malignancy. Slightly enlarged. New associated mild intra and extrahepatic biliary dilatation. CBD size 10 cm.
MR Abdomen W/o & W Contrast
1.There is a slightly ill-defined hypoenhancing lesion within the pancreatic head/uncinate process measuring approximately 2.9 x 2.4 cm with associated mild local mass effect. 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 There
is narrowing of the adjacent main pancreatic duct with mild prominence of the duct within the body and tail. This lesion appears to abut the posterior aspect of the main portal vein without discrete invasion. No evidence of involvement of the
superior mesenteric artery.
2.There are peripherally enhancing lesions within the right hepatic lobe measuring 2.0 cm and 1.5 cm which are new and most consistent with hepatic metastases.
3. There is long segment narrowing of the common bile duct secondary to extrinsic compression by the pancreatic lesion. The gallbladder appears mildly distended.
4. 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 Dilated infrarenal abdominal aorta measuring up to 2.6 cm, similar to prior. Chronic infrarenal aortic dissection.
Suspect primary pancreatic malignancy with biliary obstruction.
Discussed with gastroenterology.
Plan is for ERCP with stent placement tentatively on 04/09.
Continue adjustment of analgesic regimen with IV Dilaudid/oral oxycodone. Reassess postprocedure and according to goals of care.
Continue antiemetics
Clear liquid diet.
Hold statin.
Hold Lovenox in anticipation of ERCP
Coagulopathy with INR 2.06. Vitamin K provided. INR trending down to 1.5
With advanced malignancy, overall deteriorating performance status, poor candidate for systemic treatment, family considering hospice consultation
Type 2 diabetes.
Hold metformin.
COPD without exacerbation.
Respiratory status stable.
Episode of desaturation likely secondary to severe pain.
Continue oxygen supplementation if required.
Continue home medication regimen including Bevespi, methadone, albuterol, montelukast
Essential hypertension.
Continue Norvasc, Zestril, Lopressor
Anticipated Discharge: 24 - 48 hours
Subjective/Interval History
-
Date of Service: April 09, 2024
Objective Data
-
Labs:
Laboratory Results
04/09/24
05:42
WBC 18.3 H
Hgb 11.3 L
Hct 33.2 L
Plt Count 293 D
PT 17.9 H
INR 1.50
Sodium 131 L
Potassium 3.7
Chloride 91 L
Carbon Dioxide 23
BUN 13
Creatinine 0.4 L
Glucose 142 H
Calcium 8.8
Total Bilirubin 13.1 H
AST 1115 H*
ALT 547 H*
Alkaline Phosphatase > 2400 H
Vital Signs:
Vital Signs
Temp Pulse Resp BP Pulse Ox
98.8 F 118 16 132/68 93
04/09/24 15:10 04/09/24 15:10 04/09/24 15:10 04/09/24 15:10 04/09/24 15:10
I&O
04/08/24 04/09/24 04/10/24
06:59 06:59 06:59
Intake Total 840 / 840 1440 / 1440
Balance 840 / 840 1440 / 1440
Physical Exam
-
General: Well Developed, Well Nourished and No Apparent Distress
HEENT: Normocephalic, Atraumatic and Moist Mucous Membranes
Respiratory: Negative Wheezes (coarse BS with coughing on forced expiration)
Cardiac: Regular Rhythm and S1/S2
GI: Soft, Nondistended, Normal Bowel Sounds and Tender (most tender medial RUQ)
Musculoskeletal: No Clubbing, No Cyanosis and No Edema
Skin: Jaundice
Neuro: Awake, Alert and Oriented
[2024-04-09 17:59] LABS: Glucose - Point of Care 126 mg/dl (70-99)
[2024-04-09] MEDS: NOVOLOG FLEXPEN-LOW RESISTANCE SC (18:11)
[2024-04-09] MEDS: SINGULAIR PO (18:32)
--- NOTE | 2024-04-09 18:44 | PTCARENOTE ---
Pt arrived back to [facility] from PACU. Pt AAOx3, drowsy but arousable to verbal stimuli. Care ongoing.
[2024-04-09 21:25] LABS: Glucose - Point of Care 127 mg/dl (70-99)
[2024-04-10 00:20] LABS: Glucose - Point of Care 137 mg/dl (70-99)
[2024-04-10] MEDS: NOVOLOG FLEXPEN-LOW RESISTANCE SC ×2 (00:21→05:55)
[2024-04-10 03:58] VITALS: BP 133/61
[2024-04-10 05:38] LABS: % Basophils 0.2 % (0-2); % Eosinophils 0.1 % (0-6); % Immature Granulocytes 0.9 % (0-0.5); % Lymphocytes 3.5 % (20.5-51.1); % Monocytes 8.5 % (1.7-9.3); % Neutrophils 86.8 % (42.2-75.2); Absolute Immature Granulocytes 0.1 10^3/uL (0-0.05); Absolute Lymphocytes 0.5 10^3/uL (1.2-3.4); Absolute Monocytes 1.1 10^3/uL (0.1-0.6); Absolute Neutrophils 11.2 10^3/uL (1.4-6.5); Hematocrit 28.9 % (37.0-47.0); Hemoglobin 10.2 g/dL (12.0-16.0); Mean Corp Hgb Conc. 35.3 g/dL (33.0-37.0); Mean Corpuscular Hgb 27.3 pg (27.0-31.0); Mean Corpuscular Volume 77.5 fL (81.0-99.0); Mean Platelet Volume 9.4 fL (7.4-10.4); Nucleated Red Blood Cells % 0 %; Platelet Count 276 10^3/uL (130-400); Red Blood Cell Count 3.73 10^6/uL (4.20-5.40); Red Cell Dist. Width 14.6 % (11.5-14.5); White Blood Cell Count 12.8 10^3/uL (4.8-10.8)
[2024-04-10 05:43] LABS: Glucose - Point of Care 134 mg/dl (70-99)
[2024-04-10 06:04] LABS: ALT (SGPT) 656 U/L (0-35); Albumin 2.7 g/dl (3.5-5.0); Blood Urea Nitrogen 23 mg/dl (7-17); Calcium 8.6 mg/dl (8.4-10.2); Carbon Dioxide 24 mmol/L (22-30); Chloride 94 mmol/L (98-107); Estimated Creatinine Clearance 62 ml/min; Glucose 131 mg/dl (70-99); Potassium 3.7 mmol/L (3.5-5.1); Sodium 132 mmol/L (135-145); Total Bilirubin 13.2 mg/dl (0.2-1.3); eGFR > 60.00
[2024-04-10 06:34] LABS: AST (SGOT) 1629 U/L (14-36)
[2024-04-10 06:37] LABS: Alkaline Phosphatase > 2400 U/L (38-126)
--- NOTE | 2024-04-10 06:39 | W.PN.ONC2 ---
Today's Communication / Plan
-
Trend LFTs. F/U Dr. Washington to determine Tx options vs hospice based on limited support social situation
Impression
Impression
metastatic lung cancer
obstructive jaundice from met (malignant stricture - Bx proven)
Plan
Plan
S/P ERCP/stent 04/09
pain controled
SG (her primary treating oncologist) briefly discussed goals of care w/ patient, and w/ niece Sommer alone
She's concerned about QOL and treatment side effects, may best be served by hospice
She has minimal support at home and niece lives in [place], may need placement
SG to continue GOC discussions after ERCP most likely as outpt
Subjective/Objective
Chief Complaint
ACS Onc F/U
Subjective
S/P ERCP w stent yesterday 04/09. No c/o. Denies pain.
Vital Signs:
Vital Signs
Temp Pulse Resp BP Pulse Ox
98.5 F 98 18 133/61 96
04/10/24 03:58 04/10/24 03:58 04/10/24 03:58 04/10/24 03:58 04/10/24 03:58
Lab Results:
Laboratory Data
WBC 12.8 10^3/uL (4.8-10.8) H 04/10/24 05:13
Hgb 10.2 g/dL (12.0-16.0) L 04/10/24 05:13
Plt Count 276 10^3/uL (130-400) 04/10/24 05:13
PT 17.9 Sec (11.4-14.6) H 04/09/24 05:42
INR 1.50 04/09/24 05:42
eGFR > 60.00 04/10/24 05:13
Physical Exam
Cardiology: S1 and S2
Pulmonary: Clear
GI: Soft
[2024-04-10] MEDS: STRIVERDI RESPIMAT 2 PUFF INH (07:09)
[2024-04-10] MEDS: SPIRIVA RESPIMAT 2.5 MCG 2 PUFF INH (07:10)
[2024-04-10 07:30] VITALS: BP 126/51
[2024-04-10] MEDS: LR 1000 IV (08:26)
[2024-04-10] MEDS: ASPIR LOW (ENTERIC COATED) 81 MG PO (08:28)
[2024-04-10] MEDS: NORVASC 10 MG PO (08:28)
[2024-04-10] MEDS: ZESTRIL 2.5 MG PO (08:28)
[2024-04-10] MEDS: LOPRESSOR 100 MG PO ×2 (08:28→19:48)
[2024-04-10] MEDS: MIRALAX 17 GRAMS PO (08:29)
[2024-04-10] MEDS: DILAUDID 2 MG IV (08:41)
--- NOTE | 2024-04-10 10:23 | W.PN.HOSP.TC ---
Today's Communication/Plan
-
remains inpatient for pain control
Assessment / Plan
Assessment / Plan
Impression:
Obstructive jaundice
Severe abdominal pain
Pancreatic mass
Coagulopathy
Other conditions:
Metastatic lung carcinoma.
Diabetes type 2.
Hypertension.
Abdominal aortic aneurysm
COPD
Plan:
Abdominal ultrasound: Pancreatic head mass likely malignancy. Slightly enlarged. New associated mild intra and extrahepatic biliary dilatation. CBD size 10 cm.
MR Abdomen W/o & W Contrast
1.There is a slightly ill-defined hypoenhancing lesion within the pancreatic head/uncinate process measuring approximately 2.9 x 2.4 cm with associated mild local mass effect. 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 There
is narrowing of the adjacent main pancreatic duct with mild prominence of the duct within the body and tail. This lesion appears to abut the posterior aspect of the main portal vein without discrete invasion. No evidence of involvement of the
superior mesenteric artery.
2.There are peripherally enhancing lesions within the right hepatic lobe measuring 2.0 cm and 1.5 cm which are new and most consistent with hepatic metastases.
3. There is long segment narrowing of the common bile duct secondary to extrinsic compression by the pancreatic lesion. The gallbladder appears mildly distended.
4. 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 Dilated infrarenal abdominal aorta measuring up to 2.6 cm, similar to prior. Chronic infrarenal aortic dissection.
Abdominal pain and obstructive jaundice.
Recently diagnosed pancreatic head mass with biopsy consistent of malignancy possibly metastatic from lung, also could not exclude primary pancreatic tumor.
Suspect primary pancreatic malignancy with biliary obstruction.
-s/p ERCP with stent placement 04/09.
-Continue adjustment of analgesic regimen --> discussed with pharmacy and will start fentanyl patch with lower PRN dilaudid dosing
-Continue antiemetics
-Clear liquid diet.
-Hold statin.
-monitor INR
-CM consult for hospice - patient and niece want to hear logistics
-repeat liver enzymes tomorrow
With advanced malignancy, overall deteriorating performance status, poor candidate for systemic treatment, family considering hospice consultation
Type 2 diabetes.
Hold metformin.
COPD without exacerbation.
Respiratory status stable.
Episode of desaturation likely secondary to severe pain.
Continue oxygen supplementation if required.
Continue home medication regimen including Bevespi, methadone, albuterol, montelukast
Essential hypertension.
Continue Norvasc, Zestril, Lopressor
51 minutes spent on patient care
Anticipated Discharge: 24 - 48 hours
Subjective/Interval History
-
Date of Service: April 10, 2024
s/p stent
drank clears this morning
oxycodone makes her nauseated
Objective Data
-
Labs:
Laboratory Results
04/10/24
05:13
WBC 12.8 H
Hgb 10.2 L
Hct 28.9 L
Plt Count 276
Sodium 132 L
Potassium 3.7
Chloride 94 L
Carbon Dioxide 24
BUN 23 H
Creatinine 0.6
Glucose 131 H
Calcium 8.6
Total Bilirubin 13.2 H
AST 1629 H*
ALT 656 H*
Alkaline Phosphatase > 2400 H
Vital Signs:
Vital Signs
Temp Pulse Resp BP Pulse Ox
98.6 F 99 16 126/51 95
04/10/24 07:30 04/10/24 07:30 04/10/24 07:30 04/10/24 07:30 04/10/24 07:30
I&O
04/09/24 04/10/24 04/11/24
06:59 06:59 06:59
Intake Total 1440 / 1440 2420 / 2420
Balance 1440 / 1440 2420 / 2420
Review of Systems
-
History Source: Patient
All other systems: Reviewed and negative
Physical Exam
-
General: No Apparent Distress
HEENT: Normocephalic, Atraumatic and PERRLA
Respiratory: Negative Wheezes (coarse BS with coughing on forced expiration)
Cardiac: Regular Rhythm and S1/S2
GI: Soft, Nondistended, Normal Bowel Sounds and Tender (most tender medial RUQ)
Musculoskeletal: No Clubbing, No Cyanosis and No Edema
Skin: Jaundice
Neuro: Awake, Alert and Oriented
Psych: Calm
Data Reviewed
-
Diagnostic Radiology: Report Reviewed by me
Labs: Labs Reviewed by me
[2024-04-10 11:30] VITALS: BP 91/48
[2024-04-10 12:12] LABS: Glucose - Point of Care 156 mg/dl (70-99)
--- NOTE | 2024-04-10 12:24 | W.PN.GI.CBS2 ---
Addendum entered and electronically signed by Meredith Tracy MD 04/10/24 14:54:
04/10/24 Abdomen KUB
IMPRESSION:
2 biliary stents project over the right upper quadrant in the expected region of the common bile duct and right hepatic duct. Stent which appears project over the region of the pancreatic duct. The stents appear overall similar to recent prior
fluoroscopic images.
Numerous gas-filled loops of bowel project over the left abdomen measuring upper limits of normal.
Stents are in position no migration noted, continue supportive care and trend LFTS, repeat KUB in 1 to 2 weeks and if pancreatic stent did not fall out may need EGD with removal of stent with Dr. Weaver
Will s/o and will be available as needed
Original Note:
Today's Communication / Plan
-
Abdomen X ray to check stent placement
trend LFTS
Pain control
Assessment / Plan
-
Pt is a 73yo with past medical history of lung adenocarcinoma, thoracic aortic aneurysm, hypertension, hyperlipidemia, diabetes, pneumonia with recent admission 03/15-03/22 with abdominal pain and elevated lipase. She was noted with increased Ca19-9
along with elevated LFT's and lipase. She completed MR with concern for pancreatic head/uncinate mass but also noted hepatic mets and long segment of narrowing of CBD with extrinsic compression by panc lesion with BG distention. She completed EUS
with biopsy with + likely mets from lung. she now returns for abdominal pain, vomiting and jaundice. On admission she is noted with WBC 12,200 with bili 9.1, AST 819, ALT 425, alk phos >58422 with lipase 794 (prior labs 03/20 with bili 1,2, AST 67,
ALT 35, alk phos 252 and lipase >4000).
-abdominal pain
-nausea/vomiting
-marked rise in LFT's
-metastatic lung CA with recent panc lesion noted and liver mets
-long segment of narrowing with extrinsic compression
-recent pancreatitis with pancreatic mass
-constipation
other med problems:
-DM
-Abdominal aneurysm
-HTN
-COPD
PLAN:
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
Transaminases slightly higher discussed with Dr. Weaver. He recommended an abdomen x-ray today to check for stent position r/o migration and trend LFTs will repeat in a.m.
Discussed with Dr. Villa her pain is likely better since the stent was placed but still has significant abdominal pain and she is adjusting her pain medications.
Noted input from oncology she sees Dr. Washington as outpatient family trying to make a decision about palliative treatment versus hospice
Continue Miralax added Senna
Subjective
Subjective
Date of Service: April 10, 2024
She is still having significant pain post ERCP with stent placement yesterday. Denies pruritus afebrile. LFTs slightly higher transaminases today. tolerating clears
Objective
Data Reviewed
Laboratory Data:
Laboratory Results
04/10/24 05:13
04/10/24 05:13
Laboratory Results
PT 17.9 Sec (11.4-14.6) H 04/09/24 05:42
INR 1.50 04/09/24 05:42
Total Bilirubin 13.2 mg/dl (0.2-1.3) H 04/10/24 05:13
AST 1629 U/L (14-36) H* 04/10/24 05:13
ALT 656 U/L (0-35) H* 04/10/24 05:13
Alkaline Phosphatase > 2400 U/L (38-126) H 04/10/24 05:13
Lipase 794 U/L (23-300) H 04/07/24 21:11
Vital Signs and I&O:
Vital Signs
Temp Pulse Resp BP Pulse Ox
98.4 F 85 16 91/48 96
04/10/24 11:30 04/10/24 11:30 04/10/24 11:30 04/10/24 11:30 04/10/24 11:30
I&O
04/09/24 04/10/24 04/11/24
06:59 06:59 06:59
Intake Total 1440 / 1440 2420 / 2420
Balance 1440 / 1440 2420 / 2420
04/09/24 ERCP
Impression: - A single severe biliary stricture was found in the
middle third of the main bile duct. The stricture was
malignant appearing.
- The upper third of the main bile duct, left main
hepatic duct and right main hepatic duct were
moderately dilated.
- A pancreatic sphincterotomy was performed.
- One plastic stent was placed into the ventral
pancreatic duct.
- A biliary sphincterotomy was performed.
- One uncovered metal stent was placed into the common
bile duct.
- One plastic stent was placed into the common hepatic
duct.
Physical Exam
Physical Exam
Cardiology: Normal Sinus Rhythm
Pulmonary: Clear
GI: Soft, Distended (mildly distended) and Tender (tender in RUQ and RLQ and epigastric area)
--- NOTE | 2024-04-10 12:35 | CM ---
Case management following for discharge planning
Received CM consult - hospice
Met with pt, her and niece at bedside
Discussed palliative and hospice care, types of hospice care and comfort care
Family unsure of agency - given brochures for several
Pt will review and make decision - will notify nurse to contact CM
Plan - tbd pend pt decision
--- NOTE | 2024-04-10 12:42 | PN.CDI ---
CDI
- -
CDI:
Physician Documentation Request
Admit Date: 04/07/24 22:52
Dear Doctor Daisy,
Patient admitted with obstructive jaundice.
Sodium results:
Laboratory Tests
04/07/24 04/08/24 04/09/24
21:11 04:36 05:42
Sodium 131 L 134 L 131 L
04/10/24
05:13
Sodium 132 L
Could you please provide a diagnosis that supports the above lab abnormalities and additional evaluation/monitoring:
Hyponatremia
Abnormal lab value clinically insignificant
Other
Use of terms such as suspected, likely, concern for, or probable (associated with a specific diagnosis that is being evaluated, monitored, or treated as if it exists) are acceptable and can be coded in the inpatient setting, when documented at the
time of discharge.
Thank you,
Imani Gomez RN, BSN
CDI Specialist
tiger text
Please use your independent medical judgment in providing your response.
[2024-04-10] MEDS: NOVOLOG FLEXPEN-LOW RESISTANCE 1 UNITS SC ×2 (14:24→19:26)
[2024-04-10] MEDS: DURAGESIC 25 MCG/HR PATCH 1 PATCH TRANSDERM (14:25)
[2024-04-10] MEDS: SENOKOT 17.2 MG PO ×2 (14:25→19:48)
[2024-04-10] MEDS: DILAUDID 1 MG IV ×2 (14:35→20:07)
[2024-04-10 15:10] VITALS: BP 105/50
[2024-04-10 17:42] LABS: Glucose - Point of Care 183 mg/dl (70-99)
[2024-04-10] MEDS: SINGULAIR 10 MG PO (19:26)
[2024-04-10] MEDS: ProAIR HFA INHALER 2 PUFF INH (19:42)
[2024-04-10] MEDS: FLUSH (NSS) 2 FLUSH IV (20:08)
[2024-04-10 21:45] LABS: Glucose - Point of Care 134 mg/dl (70-99)
[2024-04-10 23:38] VITALS: BP 109/49
[2024-04-11] MEDS: DILAUDID 1 MG IV ×2 (03:39→12:39)
[2024-04-11] MEDS: FLUSH (NSS) 2 FLUSH IV (03:39)
[2024-04-11 07:17] LABS: Glucose - Point of Care 115 mg/dl (70-99)
[2024-04-11] MEDS: SPIRIVA RESPIMAT 2.5 MCG 2 PUFF INH (07:48)
[2024-04-11] MEDS: STRIVERDI RESPIMAT 2 PUFF INH (07:48)
[2024-04-11 07:54] VITALS: BP 115/58
[2024-04-11 08:46] LABS: Albumin 2.8 g/dl (3.5-5.0); Blood Urea Nitrogen 23 mg/dl (7-17); Calcium 8.4 mg/dl (8.4-10.2); Carbon Dioxide 29 mmol/L (22-30); Chloride 97 mmol/L (98-107); Estimated Creatinine Clearance 62 ml/min; Glucose 116 mg/dl (70-99); Sodium 137 mmol/L (135-145); Total Bilirubin 8.5 mg/dl (0.2-1.3); Total Protein 5.6 g/dl (6.3-8.2); eGFR > 60.00
--- NOTE | 2024-04-11 08:48 | W.PN.HOSP.TC ---
Addendum entered and electronically signed by Sarah Villa MD 04/11/24 09:56:
hyponatremia
-stable
hypokalemia
-replete
-add on Mag
Original Note:
Today's Communication/Plan
-
continue to work on pain control before discharge
awaiting CMP
Assessment / Plan
Assessment / Plan
Impression:
Obstructive jaundice
Severe abdominal pain
Pancreatic mass
Coagulopathy
Other conditions:
Metastatic lung carcinoma.
Diabetes type 2.
Hypertension.
Abdominal aortic aneurysm
COPD
Plan:
Abdominal ultrasound: Pancreatic head mass likely malignancy. Slightly enlarged. New associated mild intra and extrahepatic biliary dilatation. CBD size 10 cm.
MR Abdomen W/o & W Contrast
1.There is a slightly ill-defined hypoenhancing lesion within the pancreatic head/uncinate process measuring approximately 2.9 x 2.4 cm with associated mild local mass effect. 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 There
is narrowing of the adjacent main pancreatic duct with mild prominence of the duct within the body and tail. This lesion appears to abut the posterior aspect of the main portal vein without discrete invasion. No evidence of involvement of the
superior mesenteric artery.
2.There are peripherally enhancing lesions within the right hepatic lobe measuring 2.0 cm and 1.5 cm which are new and most consistent with hepatic metastases.
3. There is long segment narrowing of the common bile duct secondary to extrinsic compression by the pancreatic lesion. The gallbladder appears mildly distended.
4. 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 Dilated infrarenal abdominal aorta measuring up to 2.6 cm, similar to prior. Chronic infrarenal aortic dissection.
Abdominal pain and obstructive jaundice.
Recently diagnosed pancreatic head mass with biopsy consistent of malignancy possibly metastatic from lung, also could not exclude primary pancreatic tumor.
Suspect primary pancreatic malignancy with biliary obstruction.
-s/p ERCP with stent placement 04/09.
-Continue adjustment of analgesic regimen --> discussed with pharmacy and fentanyl patch started on 04/10; will add PRN Roxanol today - consider adjusting fentanyl dose over next 1-2 days
-Continue antiemetics
-Clear liquid diet.
-Hold statin.
-monitor INR
-CM consult for hospice - patient and niece met with CM on 04/10
-repeat liver enzymes tomorrow
With advanced malignancy, overall deteriorating performance status, poor candidate for systemic treatment, family considering hospice consultation
Type 2 diabetes.
Hold metformin.
COPD without exacerbation.
Respiratory status stable.
Episode of desaturation likely secondary to severe pain.
Continue oxygen supplementation if required.
Continue home medication regimen including Bevespi, methadone, albuterol, montelukast
Essential hypertension.
Continue Norvasc, Zestril, Lopressor
51 minutes spent on patient care
Anticipated Discharge: 24 - 48 hours
Subjective/Interval History
-
Date of Service: April 11, 2024
patient has some relief with fentanyl patch but continues to have pain
Objective Data
-
Labs:
Laboratory Results
04/11/24
07:38
Sodium 137
Potassium 3.0 L
Chloride 97 L
Carbon Dioxide 29
BUN 23 H
Creatinine 0.6
Glucose 116 H
Calcium 8.4
Total Bilirubin 8.5 H
AST Pending
ALT Pending
Alkaline Phosphatase Pending
Vital Signs:
Vital Signs
Temp Pulse Resp BP Pulse Ox
98.3 F 84 16 115/58 97
04/11/24 07:54 04/11/24 07:54 04/11/24 07:54 04/11/24 07:54 04/11/24 07:54
I&O
04/10/24 04/11/24 04/12/24
06:59 06:59 06:59
Intake Total 2420 / 2420 800 / 800
Balance 2420 / 2420 800 / 800
Review of Systems
-
History Source: Patient
All other systems: Reviewed and negative
Physical Exam
-
General: No Apparent Distress
HEENT: Normocephalic, Atraumatic and PERRLA
Respiratory: Negative Wheezes (coarse BS with coughing on forced expiration)
Cardiac: Regular Rhythm and S1/S2
GI: Soft, Nondistended, Normal Bowel Sounds and Tender (most tender medial RUQ)
Musculoskeletal: No Clubbing, No Cyanosis and No Edema
Skin: Jaundice
Neuro: Awake, Alert and Oriented
Psych: Calm
Data Reviewed
-
Diagnostic Radiology: Report Reviewed by me
Labs: Labs Reviewed by me
[2024-04-11] MEDS: ASPIR LOW (ENTERIC COATED) 81 MG PO (08:51)
[2024-04-11] MEDS: ZESTRIL 2.5 MG PO (08:51)
[2024-04-11] MEDS: MIRALAX 17 GRAMS PO ×2 (08:51→20:43)
[2024-04-11] MEDS: SENOKOT 17.2 MG PO ×2 (08:52→20:43)
[2024-04-11] MEDS: NORVASC 10 MG PO (08:52)
[2024-04-11] MEDS: LOPRESSOR 100 MG PO (08:52)
[2024-04-11 09:20] LABS: ALT (SGPT) 748 U/L (0-35); AST (SGOT) 1222 U/L (14-36); Alkaline Phosphatase 2201 U/L (38-126)
[2024-04-11] MEDS: KCL 20 MEQ PO ×2 (10:15→16:51)
[2024-04-11] MEDS: ROXANOL ORAL CONCENTRATE 10 MG PO (10:16)
[2024-04-11] MEDS: KCL 260 MEQ IV (10:19)
--- NOTE | 2024-04-11 11:11 | W.PN.ONC2 ---
Today's Communication / Plan
-
bowel regimen for constipation
continue GOC conversation, goasl remain restorative, may need placement at discharge
follow LFTs, Tbili trending down today
consider palliative care consult to support advanced care planning inpatient and outpatient.
Impression
Impression
metastatic lung cancer
obstructive jaundice from met (malignant stricture - Bx proven)
Plan
Plan
S/P ERCP/stent 04/09
pain controled
SG (her primary treating oncologist) briefly discussed goals of care w/ patient, and w/ niece Sommer alone
She's concerned about QOL and treatment side effects, may best be served by hospice, currently goals restorative
She has minimal support at home and niece lives in [place], may need placement
Subjective/Objective
Chief Complaint
no new complaints
Subjective
afebrile, no hypoxia or hypotension
using fent patch, prn IV hydromorphone, and prn PO morphine for pain management
no BM >1 weeks, passing flatus, using bowel regimen
Vital Signs:
Vital Signs
Temp Pulse Resp BP Pulse Ox
98.3 F 84 16 115/58 95
04/11/24 07:54 04/11/24 07:54 04/11/24 07:54 04/11/24 07:54 04/11/24 09:06
Lab Results:
Laboratory Data
WBC 12.8 10^3/uL (4.8-10.8) H 04/10/24 05:13
Hgb 10.2 g/dL (12.0-16.0) L 04/10/24 05:13
Plt Count 276 10^3/uL (130-400) 04/10/24 05:13
PT 17.9 Sec (11.4-14.6) H 04/09/24 05:42
INR 1.50 04/09/24 05:42
eGFR > 60.00 04/11/24 07:38
Physical Exam
HEENT: Jaundice and Moist Mucous Membranes
Cardiology: S1 and S2
Pulmonary: Clear
GI: Soft
Extremities: Pulses Present and Edema (trace b/l ankle edema)
Neuro: Non Focal
Review of Systems
Review of Systems
review of systems notable for subjective, otherwise negative
[2024-04-11 11:57] LABS: Glucose - Point of Care 147 mg/dl (70-99)
[2024-04-11] MEDS: FLUSH (NSS) 1 FLUSH IV (12:48)
--- NOTE | 2024-04-11 15:14 | CM ---
Addendum entered by Nathaly Pascual 04/12/24 07:47:
spoke with ann marie from [facility].plan is to meet with family today.
Original Note:
patent on dilaudid for pain and having difficulty with pain control,cont bowel regimen for constipation.spoke with nijanett curtis and received a call from bill.they would like to more along with hospice.i placed a hospice cs for [facility] to speak with .Plan for hospice when appropriate.
[2024-04-11 15:34] VITALS: BP 103/49
[2024-04-11] MEDS: DILAUDID 4 MG PO (15:42)
--- NOTE | 2024-04-11 15:58 | W.CON.PAL ---
Consultation
-
Date/Time Consultation Requested: 04/11
Date/Time Consultation Performed: 04/11
Performing Provider: Concepcion Leslie
Reason for Consult: Goals of Care Discussion and Symptom & Pain Management
Primary Diagnosis: pancreatic cancer, lung cancer
Consult Requested By: Patient's Physician
Reason for Admission
Illness Course/HPI
73 year old F with COPD not on home O2, hypertension, hyperlipidemia, DM, lung cancer s/p treatment, recently diagnosed pancreatic mass c/f new primary malignancy with possible liver mets admitted with abdominal pain and jaundice. Upon admission was
found to have biliary obstruction, underwent ERCP and stenting 04/10. Bili now dowtrending.
Planned to see PC as an outpatient but was admitted to the hospital. Discussions with patient and family about hospice ongoing - initially felt like she was not ready for hospice yet.
Seen at bedside this Am with no family present. States she feels horrible and pain is excruciating. Doesnt feel its any better after the stent. She tells me she is in fact planning to pursue hospice on discharge, but that she wants to get her pain
better managed before doing this.
Was receiving 2mg IV dilaudid pushes before and after biliary stent, using about ~10mg per day with relief. Recently switched to fentanyl 25mcg, morphine PO 10mg and feels she isnt getting relief with this.
Pain & Symptom Assessment
Patient Symptoms
Patient Symptoms: Pain
[place] Symptom Scale 0=none, 10=worst
Pain: 10
Objective Data
-
Objective Data:
Vital Signs
Temp Pulse Resp BP Pulse Ox
97.4 F 78 16 103/49 96
04/11/24 15:34 04/11/24 15:34 04/11/24 15:34 04/11/24 15:34 04/11/24 15:34
Laboratory Results
04/10/24 05:13
04/11/24 07:38
PT 17.9 Sec (11.4-14.6) H 04/09/24 05:42
INR 1.50 04/09/24 05:42
Total Protein 5.6 g/dl (6.3-8.2) L 04/11/24 07:38
Albumin 2.8 g/dl (3.5-5.0) L 04/11/24 07:38
Palliative Performance Scale
Palliative Performance Scale:
PPS Level Ambulation Activity & Evidence of Disease Self Care Intake Conscious Level
100% Full Normal Activity & Work; Full Intake Full
No Evidence of Disease
90% Full Normal Activity & Work; Full Normal Full
Some Evidence of Disease
80% Full Normal Activity with Effort Full Normal or Full
Some Evidence of Disease Reduced
70% Reduced Unable Normal Job/Work Full Normal or Full
Significant Disease Reduced
60% Reduced Unable Hobby/Housework Occasional Normal or Full or Confusion
Significant Disease Assistance Reduced
50% Mainly Sit/Lie Unable to do Any Work Considerable Normal or Full or Confusion
Extensive Disease Assistance Req'd Reduced
40% Mainly in Bed Unable to do Most Activity Mainly Assistance Normal or Full or Drowsy;
Extensive Disease Reduced +/- Confusion
30% Totally Bed Unable to do Any Activity Total Care Normal or Full or Drowsy;
Bound Extensive Disease Reduced +/- Confusion
20% Totally Bed Bound Unable to do Any Activity Total Care Minimal to Full or Drowsy;
Extensive Disease Sips +/- Confusion
10% Totally Bed Bound Unable to do Any Activity Total Care Mouth Care Drowsy or Coma;
Extensive Disease Only +/- Confusion
0%
PPS Score Level:
Palliative Performance Score Response
Palliative Performance Score Response: 50%
Physical Exam
-
General: Pain and Appears Chronically Ill
HEENT: Normocephalic
Respiratory: Clear to Auscultation
Cardiac: Regular Rhythm
Peripheral Vascular: No Edema
GI: Distended
Skin: Other (jaundiced )
Neuro: AO x 3
Psych: Anxious
Assessment / Plan
-
Assessment/Plan:
73 year old F with lung cancer, new pancreatic mass with possible liver mets admitted with abdominal pain and jaundice found to have malignant biliary obstruction s/p ERCP and stent placement. Still with significant pain.
- patient not pursuing further cancer directed therapy and tells me she is interested in hospice on discharge. Has a list of agencies, hasnt picked one yet due to severe pain and wants pain better controlled before going home.
- started fentanyl 25mcg yesterday - was using closer to ~50mcg in IV dilaudid alone so will likely need an increase when patch is due to be changed. Not getting relief from morphine. Would recommend changing to PO dilaudid at least 4mg Q3 PRN, low
threshold to increase PRN dose. Also increase iv dilaudid dose to 1mg for breakthrough pain. Was hallucinating on dilaudid prior to procedure but likely related to the 2mg dosing.
Will follow up tomorrow. Discussed with team.
Care Reviewed
Data Reviewed
Radiology procedure: Image Reviewed
Medical Tests: I reviewed
Reviewed with: Patient
[2024-04-11 16:14] LABS: Glucose - Point of Care 144 mg/dl (70-99)
[2024-04-11] MEDS: SINGULAIR 10 MG PO (16:51)
--- NOTE | 2024-04-11 17:59 | HOSPNOTE ---
Hospice referral received. Plan is to meet with family tomorrow. More information to follow.
[2024-04-11 21:55] LABS: Glucose - Point of Care 191 mg/dl (70-99)
[2024-04-11] MEDS: LOPRESSOR PO (23:04)
[2024-04-11 23:39] VITALS: BP 104/41
[2024-04-12 05:20] LABS: ALT (SGPT) 495 U/L (0-35); AST (SGOT) 262 U/L (14-36); Albumin 2.9 g/dl (3.5-5.0); Blood Urea Nitrogen 23 mg/dl (7-17); Calcium 8.3 mg/dl (8.4-10.2); Carbon Dioxide 27 mmol/L (22-30); Chloride 100 mmol/L (98-107); Estimated Creatinine Clearance 62 ml/min; Glucose 111 mg/dl (70-99); Potassium 3.6 mmol/L (3.5-5.1); Sodium 137 mmol/L (135-145); Total Bilirubin 4.4 mg/dl (0.2-1.3); Total Protein 5.6 g/dl (6.3-8.2); eGFR > 60.00
[2024-04-12 06:04] LABS: Alkaline Phosphatase 1746 U/L (38-126)
[2024-04-12] MEDS: STRIVERDI RESPIMAT 2 PUFF INH (07:29)
[2024-04-12] MEDS: SPIRIVA RESPIMAT 2.5 MCG 2 PUFF INH (07:29)
[2024-04-12 07:47] LABS: Glucose - Point of Care 137 mg/dl (70-99)
[2024-04-12 07:54] VITALS: BP 112/54
[2024-04-12] MEDS: DILAUDID 4 MG PO ×3 (08:44→20:54)
[2024-04-12] MEDS: ASPIR LOW (ENTERIC COATED) 81 MG PO (08:45)
[2024-04-12] MEDS: ZESTRIL 2.5 MG PO (08:45)
[2024-04-12] MEDS: LOPRESSOR 100 MG PO ×2 (08:45→20:36)
[2024-04-12] MEDS: NORVASC 10 MG PO (08:45)
[2024-04-12] MEDS: MIRALAX PO (08:46)
[2024-04-12] MEDS: SENOKOT 17.2 MG PO (08:46)
[2024-04-12] MEDS: MIRALAX 17 GRAMS PO ×2 (08:46→20:35)
--- NOTE | 2024-04-12 08:52 | W.PN.HOSP.TC ---
Addendum entered and electronically signed by Sarah Villa MD 04/12/24 11:15:
I spoke with KONRAD Sullivan - will change fentanyl patch to 50mcg daily
Original Note:
Today's Communication/Plan
-
pain control
hospice meeting
Assessment / Plan
Assessment / Plan
Impression:
Obstructive jaundice
Severe abdominal pain
Pancreatic mass
Coagulopathy
Other conditions:
Metastatic lung carcinoma.
Diabetes type 2.
Hypertension.
Abdominal aortic aneurysm
COPD
Plan:
Abdominal ultrasound: Pancreatic head mass likely malignancy. Slightly enlarged. New associated mild intra and extrahepatic biliary dilatation. CBD size 10 cm.
MR Abdomen W/o & W Contrast
1.There is a slightly ill-defined hypoenhancing lesion within the pancreatic head/uncinate process measuring approximately 2.9 x 2.4 cm with associated mild local mass effect. 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 There
is narrowing of the adjacent main pancreatic duct with mild prominence of the duct within the body and tail. This lesion appears to abut the posterior aspect of the main portal vein without discrete invasion. No evidence of involvement of the
superior mesenteric artery.
2.There are peripherally enhancing lesions within the right hepatic lobe measuring 2.0 cm and 1.5 cm which are new and most consistent with hepatic metastases.
3. There is long segment narrowing of the common bile duct secondary to extrinsic compression by the pancreatic lesion. The gallbladder appears mildly distended.
4. 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 Dilated infrarenal abdominal aorta measuring up to 2.6 cm, similar to prior. Chronic infrarenal aortic dissection.
Abdominal pain and obstructive jaundice.
Recently diagnosed pancreatic head mass with biopsy consistent of malignancy possibly metastatic from lung, also could not exclude primary pancreatic tumor.
Suspect primary pancreatic malignancy with biliary obstruction.
-appreciate Oncology and GI
-s/p ERCP with stent placement 04/09.
-Continue adjustment of analgesic regimen --> discussed with pharmacy and fentanyl patch started on 04/10; will increase dose by 12mcg for next dose (04/13). She is also on oral dilaudid PRN with IV for breakthrough
-Continue antiemetics
-Clear liquid diet.
-Hold statin.
-monitor INR
-patient wants to sign onto hospice -hospice meeting today
-palliative care consult appreciated
Type 2 diabetes.
Hold metformin.
COPD without exacerbation.
Respiratory status stable.
Episode of desaturation likely secondary to severe pain.
Continue oxygen supplementation if required.
Continue home medication regimen including Bevespi, methadone, albuterol, montelukast
Essential hypertension.
Continue Norvasc, Zestril, Lopressor
51 minutes spent on patient care
Anticipated Discharge: 24 - 48 hours
Subjective/Interval History
-
Date of Service: April 12, 2024
she is in pain this morning, didn't get oral dilaudid since yesterday afternoon and taking a dose now
seen taking pills
Objective Data
-
Labs:
Laboratory Results
04/12/24
04:17
Sodium 137
Potassium 3.6
Chloride 100
Carbon Dioxide 27
BUN 23 H
Creatinine 0.5 L
Glucose 111 H
Calcium 8.3 L
Total Bilirubin 4.4 H
AST 262 H
ALT 495 H
Alkaline Phosphatase 1746 H
Vital Signs:
Vital Signs
Temp Pulse Resp BP Pulse Ox
98.1 F 91 16 112/54 96
04/12/24 07:54 04/12/24 07:54 04/12/24 07:54 04/12/24 07:54 04/12/24 07:54
I&O
04/11/24 04/12/24 04/13/24
06:59 06:59 06:59
Intake Total 800 / 800 720 / 720
Balance 800 / 800 720 / 720
Review of Systems
-
History Source: Patient
All other systems: Reviewed and negative
Physical Exam
-
General: No Apparent Distress
HEENT: Normocephalic, Atraumatic and PERRLA
Respiratory: Negative Wheezes (coarse BS with coughing on forced expiration)
Cardiac: Regular Rhythm and S1/S2
GI: Soft, Nondistended, Normal Bowel Sounds and Tender (most tender medial RUQ)
Musculoskeletal: No Clubbing, No Cyanosis and No Edema
Skin: Jaundice
Neuro: Awake, Alert and Oriented
Psych: Calm
Data Reviewed
-
Diagnostic Radiology: Report Reviewed by me
Labs: Labs Reviewed by me
--- NOTE | 2024-04-12 10:36 | W.PN.ONC2 ---
Today's Communication / Plan
-
pain control, hospice meeting
Impression
Impression
metastatic lung cancer
obstructive jaundice from met (malignant stricture - Bx proven)
Plan
Plan
S/P ERCP/stent 04/09
pain management
She has minimal support at home and niece lives in [place], may need placement. Palliative care working with patient regarding comfort goals and advanced care planning
Subjective/Objective
Chief Complaint
pain improved with hydromorphone 4mg prn
Tbili improved 4.4, transaminitis improving
Subjective
afebrile, no hypoxia or hypotension
Vital Signs:
Vital Signs
Temp Pulse Resp BP Pulse Ox
98.1 F 91 16 112/54 96
04/12/24 07:54 04/12/24 07:54 04/12/24 07:54 04/12/24 07:54 04/12/24 07:54
Lab Results:
Laboratory Data
WBC 12.8 10^3/uL (4.8-10.8) H 04/10/24 05:13
Hgb 10.2 g/dL (12.0-16.0) L 04/10/24 05:13
Plt Count 276 10^3/uL (130-400) 04/10/24 05:13
PT 17.9 Sec (11.4-14.6) H 04/09/24 05:42
INR 1.50 04/09/24 05:42
eGFR > 60.00 04/12/24 04:17
Physical Exam
HEENT: Jaundice and Moist Mucous Membranes
Cardiology: S1 and S2
Pulmonary: Clear
GI: Soft
Extremities: Pulses Present and Edema (trace b/l ankle edema)
Neuro: Non Focal
Review of Systems
Review of Systems
ROS notable for subjective, otherwise negative
Orders
Orders
Orders From Last 24 Hours
04/11/24 11:20
Consult, Palliative Care [PALLIATIVE CARE CONSULT] Routine
[2024-04-12] MEDS: DURAGESIC 50 MCG/HR PATCH 1 PATCH TRANSDERM (11:37)
[2024-04-12 11:43] LABS: Glucose - Point of Care 127 mg/dl (70-99)
--- NOTE | 2024-04-12 12:15 | HOSPNOTE ---
Met with patient and spouse to discuss hospice and the philosophy. At this time since we have changed pain medications the patient will remain here over the weekend and if stable with pain management will discharge to home with hospice on Monday.
Attending aware of plan. Will follow up Monday.
--- NOTE | 2024-04-12 15:00 | CM ---
Case management following for discharge planning
Pt and her met with Hospice today
Pt to continue with pain management , hospice to reevaluate on Monday
Plan - anticipate home with Hospice when medically ready
[2024-04-12 15:17] VITALS: BP 103/50
--- NOTE | 2024-04-12 15:27 | W.PN.PAL2 ---
Today's Communication
-
Palliative Care Follow up. Pain control overall improved from yesterday. Will receive additional Fentanyl patch 12mcg tomorrow per med rec. continue fentanyl 5mcg patch + dilaudid 4mg prn. Patient met today with dalia, has not yet made decision
yet on which hospice but plan for home hospice with family in near future. Patient is supported by her and son who live with her
Assessment / Plan
-
Assessment/Plan:
Continue Fentanyl patch 25 + 12mcg to start on monday. continue hydromorphone prn.
To start home hospice once makes decision on which hospice
Reason for Admission
Illness Course/HPI
73 year old F with COPD not on home O2, hypertension, hyperlipidemia, DM, lung cancer s/p treatment, recently diagnosed pancreatic mass c/f new primary malignancy with possible liver mets admitted with abdominal pain and jaundice. Upon admission was
found to have biliary obstruction, underwent ERCP and stenting 04/10. Bili now dowtrending.
Planned to see PC as an outpatient but was admitted to the hospital. Discussions with patient and family about hospice ongoing - initially felt like she was not ready for hospice yet.
Goals of Care Discussion
-
Patient able to participate in discussion at time of visit: Yes
Patient Goals
Plan to start hospice in the near future
Pain & Symptom Assessment
Patient Symptoms
Patient Symptoms: Pain (pain controlled with current medication, but feels that they make her feel off)
[place] Symptom Scale 0=none, 10=worst
Pain: 0 (pain controlled with prn dilaudid)
Tired: 4 (feels tired on medication )
Drowsy: 4
Nausea: 0
Objective Data
-
Objective Data:
Vital Signs
Temp Pulse Resp BP Pulse Ox
97.9 F 77 16 103/50 96
04/12/24 15:17 04/12/24 15:17 04/12/24 15:17 04/12/24 15:17 04/12/24 15:17
Laboratory Results
04/10/24 05:13
04/12/24 04:17
PT 17.9 Sec (11.4-14.6) H 04/09/24 05:42
INR 1.50 04/09/24 05:42
Total Protein 5.6 g/dl (6.3-8.2) L 04/12/24 04:17
Albumin 2.9 g/dl (3.5-5.0) L 04/12/24 04:17
Palliative Performance Score Response
Palliative Performance Score Response: 50%
Physical Exam
-
General: Well Developed and Comfortable
Psych: Calm and Intact Judgement/Insight
[2024-04-12 17:10] LABS: Glucose - Point of Care 140 mg/dl (70-99)
[2024-04-12] MEDS: SINGULAIR 10 MG PO (17:20)
[2024-04-12 19:19] VITALS: BP 95/56
[2024-04-12 21:50] LABS: Glucose - Point of Care 159 mg/dl (70-99)
[2024-04-12 23:21] VITALS: BP 99/46
[2024-04-13] MEDS: DILAUDID 4 MG PO ×4 (05:39→22:21)
[2024-04-13 07:37] LABS: Glucose - Point of Care 113 mg/dl (70-99)
[2024-04-13 07:52] VITALS: BP 90/59
[2024-04-13] MEDS: MIRALAX 17 GRAMS PO ×2 (08:36→22:20)
[2024-04-13] MEDS: LOPRESSOR PO (08:36)
--- NOTE | 2024-04-13 08:54 | W.PN.HOSP.TC ---
Today's Communication/Plan
-
pain control
Assessment / Plan
Assessment / Plan
Impression:
Obstructive jaundice
Severe abdominal pain
Pancreatic mass
Coagulopathy
Other conditions:
Metastatic lung carcinoma.
Diabetes type 2.
Hypertension.
Abdominal aortic aneurysm
COPD
Plan:
Abdominal ultrasound: Pancreatic head mass likely malignancy. Slightly enlarged. New associated mild intra and extrahepatic biliary dilatation. CBD size 10 cm.
MR Abdomen W/o & W Contrast
1.There is a slightly ill-defined hypoenhancing lesion within the pancreatic head/uncinate process measuring approximately 2.9 x 2.4 cm with associated mild local mass effect. 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 There
is narrowing of the adjacent main pancreatic duct with mild prominence of the duct within the body and tail. This lesion appears to abut the posterior aspect of the main portal vein without discrete invasion. No evidence of involvement of the
superior mesenteric artery.
2.There are peripherally enhancing lesions within the right hepatic lobe measuring 2.0 cm and 1.5 cm which are new and most consistent with hepatic metastases.
3. There is long segment narrowing of the common bile duct secondary to extrinsic compression by the pancreatic lesion. The gallbladder appears mildly distended.
4. 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 Dilated infrarenal abdominal aorta measuring up to 2.6 cm, similar to prior. Chronic infrarenal aortic dissection.
Abdominal pain and obstructive jaundice.
Recently diagnosed pancreatic head mass with biopsy consistent of malignancy possibly metastatic from lung, also could not exclude primary pancreatic tumor.
Suspect primary pancreatic malignancy with biliary obstruction.
-appreciate Oncology and GI
-s/p ERCP with stent placement 04/09.
-Continue adjustment of analgesic regimen --> discussed with pharmacy and fentanyl patch started on 04/10;dose increased to 50mcg on 04/12; PRN oral dilaudid
-Clear liquid diet.
-Hold statin.
-appreciate palliative care
-appreciate hospice - plan is to monitor pain over weekend and DC to hospice early next week
Type 2 diabetes.
Hold metformin.
COPD without exacerbation.
Respiratory status stable.
Episode of desaturation likely secondary to severe pain.
Continue oxygen supplementation if required.
Continue home medication regimen including Bevespi, methadone, albuterol, montelukast
Essential hypertension.
continue lopressor
stop other medications
51 minutes spent on patient care
Anticipated Discharge: 24 - 48 hours
Subjective/Interval History
-
Date of Service: April 13, 2024
pain better controlled on current regimen
Objective Data
-
Vital Signs:
Vital Signs
Temp Pulse Resp BP Pulse Ox
98.5 F 99 16 90/59 93
04/13/24 07:52 04/13/24 07:52 04/13/24 07:52 04/13/24 08:36 04/13/24 07:52
I&O
04/12/24 04/13/24 04/14/24
06:59 06:59 06:59
Intake Total 720 / 720 1320 / 1320
Balance 720 / 720 1320 / 1320
Review of Systems
-
History Source: Patient
All other systems: Reviewed and negative
Physical Exam
-
General: No Apparent Distress
HEENT: Normocephalic, Atraumatic and PERRLA
Respiratory: Negative Wheezes (coarse BS with coughing on forced expiration)
Cardiac: Regular Rhythm and S1/S2
GI: Soft, Nondistended, Normal Bowel Sounds and Tender (most tender medial RUQ)
Musculoskeletal: No Clubbing, No Cyanosis and No Edema
Skin: Jaundice
Neuro: Awake, Alert and Oriented
Psych: Calm
Data Reviewed
-
Diagnostic Radiology: Report Reviewed by me
Labs: Labs Reviewed by me
[2024-04-13 11:42] LABS: Glucose - Point of Care 145 mg/dl (70-99)
[2024-04-13 16:30] VITALS: BP 115/56
[2024-04-13] MEDS: SINGULAIR 10 MG PO (18:14)
[2024-04-13] MEDS: LOPRESSOR 100 MG PO (22:21)
[2024-04-13 23:21] VITALS: BP 128/52
[2024-04-14 07:56] VITALS: BP 107/46
[2024-04-14] MEDS: LOPRESSOR PO (09:09)
[2024-04-14] MEDS: MIRALAX 17 GRAMS PO ×2 (10:10→20:13)
[2024-04-14] MEDS: DILAUDID 4 MG PO ×3 (10:14→20:12)
--- NOTE | 2024-04-14 10:25 | W.PN.HOSP.TC ---
Today's Communication/Plan
-
pain control
eventual DC to hospice
Assessment / Plan
Assessment / Plan
Impression:
Obstructive jaundice
Severe abdominal pain
Pancreatic mass
Coagulopathy
Other conditions:
Metastatic lung carcinoma.
Diabetes type 2.
Hypertension.
Abdominal aortic aneurysm
COPD
Plan:
Abdominal ultrasound: Pancreatic head mass likely malignancy. Slightly enlarged. New associated mild intra and extrahepatic biliary dilatation. CBD size 10 cm.
MR Abdomen W/o & W Contrast
1.There is a slightly ill-defined hypoenhancing lesion within the pancreatic head/uncinate process measuring approximately 2.9 x 2.4 cm with associated mild local mass effect. 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 There
is narrowing of the adjacent main pancreatic duct with mild prominence of the duct within the body and tail. This lesion appears to abut the posterior aspect of the main portal vein without discrete invasion. No evidence of involvement of the
superior mesenteric artery.
2.There are peripherally enhancing lesions within the right hepatic lobe measuring 2.0 cm and 1.5 cm which are new and most consistent with hepatic metastases.
3. There is long segment narrowing of the common bile duct secondary to extrinsic compression by the pancreatic lesion. The gallbladder appears mildly distended.
4. 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 Dilated infrarenal abdominal aorta measuring up to 2.6 cm, similar to prior. Chronic infrarenal aortic dissection.
Abdominal pain and obstructive jaundice.
Recently diagnosed pancreatic head mass with biopsy consistent of malignancy possibly metastatic from lung, also could not exclude primary pancreatic tumor.
Suspect primary pancreatic malignancy with biliary obstruction.
-appreciate Oncology and GI
-s/p ERCP with stent placement 04/09.
-Continue adjustment of analgesic regimen --> discussed with pharmacy and fentanyl patch started on 04/10;dose increased to 50mcg on 04/12; PRN oral dilaudid --> will make standing BID so dosing not delayed
-regular diet
-appreciate palliative care
-appreciate hospice - plan is to monitor pain over weekend and DC to hospice early next week
Type 2 diabetes.
Hold metformin.
COPD without exacerbation.
Respiratory status stable.
Episode of desaturation likely secondary to severe pain.
Continue oxygen supplementation if required.
Continue home medication regimen including Bevespi, methadone, albuterol, montelukast
Essential hypertension.
continue lopressor
stop other medications
51 minutes spent on patient care
Anticipated Discharge: 24 - 48 hours
Subjective/Interval History
-
Date of Service: April 14, 2024
pain this morning, slept well overnight and woke up in pain
Objective Data
-
Vital Signs:
Vital Signs
Temp Pulse Resp BP Pulse Ox
98.9 F 89 18 107/46 95
04/14/24 07:56 04/14/24 07:56 04/14/24 07:56 04/14/24 07:56 04/14/24 07:56
I&O
04/13/24 04/14/24 04/15/24
06:59 06:59 06:59
Intake Total 1320 / 1320 1380 / 1380
Balance 1320 / 1320 1380 / 1380
Review of Systems
-
History Source: Patient
All other systems: Reviewed and negative
Physical Exam
-
General: No Apparent Distress
HEENT: Normocephalic, Atraumatic and PERRLA
Respiratory: Negative Wheezes (coarse BS with coughing on forced expiration)
Cardiac: Regular Rhythm and S1/S2
GI: Soft, Nondistended, Normal Bowel Sounds and Tender (most tender medial RUQ)
Musculoskeletal: No Clubbing, No Cyanosis and No Edema
Skin: Jaundice
Neuro: Awake, Alert and Oriented
Psych: Calm
Data Reviewed
-
Diagnostic Radiology: Report Reviewed by me
Labs: Labs Reviewed by me
[2024-04-14 15:40] VITALS: BP 111/52
[2024-04-14] MEDS: SINGULAIR 10 MG PO (17:34)
[2024-04-14] MEDS: LOPRESSOR 100 MG PO (20:13)
[2024-04-14] MEDS: ProAIR HFA INHALER 2 PUFF INH (20:19)
[2024-04-14 23:04] VITALS: BP 116/88
[2024-04-15] MEDS: DILAUDID 4 MG PO ×4 (03:14→21:20)
[2024-04-15 07:28] VITALS: BP 124/73
[2024-04-15] MEDS: MIRALAX 17 GRAMS PO ×2 (07:41→21:19)
[2024-04-15] MEDS: LOPRESSOR 100 MG PO ×2 (07:41→21:20)
--- NOTE | 2024-04-15 11:43 | W.PN.HOSP.TC ---
Today's Communication/Plan
-
monitor vitals
see plan
cw pain meds
dc planning
spoke with niece over the phone
Assessment / Plan
Assessment / Plan
Impression:
Obstructive jaundice
Severe abdominal pain
Pancreatic mass
Coagulopathy
Other conditions:
Metastatic lung carcinoma.
Diabetes type 2.
Hypertension.
Abdominal aortic aneurysm
COPD
Plan:
Abdominal ultrasound: Pancreatic head mass likely malignancy. Slightly enlarged. New associated mild intra and extrahepatic biliary dilatation. CBD size 10 cm.
MR Abdomen W/o & W Contrast
1.There is a slightly ill-defined hypoenhancing lesion within the pancreatic head/uncinate process measuring approximately 2.9 x 2.4 cm with associated mild local mass effect. 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 There
is narrowing of the adjacent main pancreatic duct with mild prominence of the duct within the body and tail. This lesion appears to abut the posterior aspect of the main portal vein without discrete invasion. No evidence of involvement of the
superior mesenteric artery.
2.There are peripherally enhancing lesions within the right hepatic lobe measuring 2.0 cm and 1.5 cm which are new and most consistent with hepatic metastases.
3. There is long segment narrowing of the common bile duct secondary to extrinsic compression by the pancreatic lesion. The gallbladder appears mildly distended.
4. 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 Dilated infrarenal abdominal aorta measuring up to 2.6 cm, similar to prior. Chronic infrarenal aortic dissection.
Abdominal pain and obstructive jaundice.
Recently diagnosed pancreatic head mass with biopsy consistent of malignancy possibly metastatic from lung, also could not exclude primary pancreatic tumor.
Suspect primary pancreatic malignancy with biliary obstruction.
-appreciate Oncology and GI
-s/p ERCP with stent placement 04/09.
-Continue adjustment of analgesic regimen --> discussed with pharmacy and fentanyl patch started on 04/10;dose increased to 50mcg on 04/12; now also on standing dilaudid
-regular diet
-appreciate palliative care
-appreciate hospice - plan is to monitor pain and DC to hospice eventually
Type 2 diabetes.
Hold metformin.
COPD without exacerbation.
Respiratory status stable.
Episode of desaturation likely secondary to severe pain.
Continue oxygen supplementation if required.
Continue home medication regimen including Bevespi, methadone, albuterol, montelukast
Essential hypertension.
continue lopressor
stop other medications
General: No Apparent Distress
HEENT: Normocephalic, Atraumatic and PERRLA
Respiratory: Negative Wheezes
Cardiac: Regular Rhythm and S1/S2
GI: Soft, Nondistended, Normal Bowel Sounds and Tender (most tender medial RUQ)
Musculoskeletal: No Clubbing, No Cyanosis and No Edema
Skin: Jaundice
Neuro: Awake, Alert and Oriented
Psych: Calm
Anticipated Discharge: Within 24 hours
Subjective/Interval History
-
Date of Service: April 15, 2024
has some pain
Objective Data
-
Vital Signs:
Vital Signs
Temp Pulse Resp BP Pulse Ox
98.1 F 86 16 124/73 96
04/15/24 07:28 04/15/24 07:28 04/15/24 07:28 04/15/24 07:28 04/15/24 07:28
I&O
04/14/24 04/15/24 04/16/24
06:59 06:59 06:59
Intake Total 1380 / 1380 1040 / 1040
Balance 1380 / 1380 1040 / 1040
[2024-04-15] MEDS: DURAGESIC 50 MCG/HR PATCH 1 PATCH TRANSDERM (12:06)
--- NOTE | 2024-04-15 13:06 | W.PN.ONC ---
Today's Communication / Plan
-
In talking with her, she is leaning towards hospice, but wants her niece and to be further involved in the conversation.
Impression
Impression
metastatic lung cancer
obstructive jaundice from met (malignant stricture - Bx proven)
Plan
Plan
S/P ERCP/stent 04/09
pain management
She has minimal support at home and niece lives in [place], may need placement. Palliative care working with patient regarding comfort goals and advanced care planning
Subjective/Objective
Subjective/Objective
She is weak but otherwise feeling reasonably well. She has some mild right upper quadrant pain. Her appetite unfortunately remains poor. Bilirubin is trending down. Examination is unchanged.
Vital Signs:
Vital Signs
Temp Pulse Resp BP Pulse Ox
98.1 F 86 16 124/73 96
04/15/24 07:28 04/15/24 07:28 04/15/24 07:28 04/15/24 07:28 04/15/24 07:28
Lab Results:
Laboratory Data
WBC 12.8 10^3/uL (4.8-10.8) H 04/10/24 05:13
Hgb 10.2 g/dL (12.0-16.0) L 04/10/24 05:13
Plt Count 276 10^3/uL (130-400) 04/10/24 05:13
PT 17.9 Sec (11.4-14.6) H 04/09/24 05:42
INR 1.50 04/09/24 05:42
eGFR > 60.00 04/12/24 04:17
--- NOTE | 2024-04-15 14:46 | HOSPNOTE ---
Spoke with attending and discussed patient. She does not meet criteria to stay here on hospice services. I called the niece and discussed. Will follow up tomorrow and make some decisions.
[2024-04-15 15:13] VITALS: BP 105/53
--- NOTE | 2024-04-15 15:41 | PTCARENOTE ---
Pt to be transferred to , report given to Deanna SILVESTRE.
--- NOTE | 2024-04-15 15:45 | CM ---
CM reviewed pt with [facility]/ Hospice
Pt does not meet GIP criteria
Hospice continuing to work with family to development eventual plan for home
Likely dc Wed
CM will remains available for dc planning
Discharge Disposition- anticipate home with hospice Wed
--- NOTE | 2024-04-15 15:54 | W.PN.PAL2 ---
Today's Communication
-
Patient seen for follow up 12:30pm. She was comfortable on urrent pain regimen at this time. Pain score averaging 6/10. Receiving Fentanyl patch 50mcg + dilaudid 4mg BID which has been working well for pain control, only required a few prn doses
yesterday. Goals are clear - home hospice. she is awaiting meeting today with [facility] to make arrangements.
Assessment / Plan
-
Assessment/Plan:
Goals are Clear : Plan for home hospice
Pain better controlled at this time.
Reason for Admission
Illness Course/HPI
73 year old F with COPD not on home O2, hypertension, hyperlipidemia, DM, lung cancer s/p treatment, recently diagnosed pancreatic mass c/f new primary malignancy with possible liver mets admitted with abdominal pain and jaundice. Upon admission was
found to have biliary obstruction, underwent ERCP and stenting 04/10. Bili now dowtrending.
Goals of Care Discussion
-
Patient able to participate in discussion at time of visit: Yes
Patient Goals
[facility]
Pain & Symptom Assessment
[place] Symptom Scale 0=none, 10=worst
Pain: 5
Objective Data
-
Objective Data:
Vital Signs
Temp Pulse Resp BP Pulse Ox
97.5 F 77 16 105/53 98
04/15/24 15:13 04/15/24 15:13 04/15/24 15:13 04/15/24 15:13 04/15/24 15:13
Laboratory Results
04/10/24 05:13
04/12/24 04:17
PT 17.9 Sec (11.4-14.6) H 04/09/24 05:42
INR 1.50 04/09/24 05:42
Total Protein 5.6 g/dl (6.3-8.2) L 04/12/24 04:17
Albumin 2.9 g/dl (3.5-5.0) L 04/12/24 04:17
Palliative Performance Scale
Palliative Performance Scale:
PPS Level Ambulation Activity & Evidence of Disease Self Care Intake Conscious Level
100% Full Normal Activity & Work; Full Intake Full
No Evidence of Disease
90% Full Normal Activity & Work; Full Normal Full
Some Evidence of Disease
80% Full Normal Activity with Effort Full Normal or Full
Some Evidence of Disease Reduced
70% Reduced Unable Normal Job/Work Full Normal or Full
Significant Disease Reduced
60% Reduced Unable Hobby/Housework Occasional Normal or Full or Confusion
Significant Disease Assistance Reduced
50% Mainly Sit/Lie Unable to do Any Work Considerable Normal or Full or Confusion
Extensive Disease Assistance Req'd Reduced
40% Mainly in Bed Unable to do Most Activity Mainly Assistance Normal or Full or Drowsy;
Extensive Disease Reduced +/- Confusion
30% Totally Bed Unable to do Any Activity Total Care Normal or Full or Drowsy;
Bound Extensive Disease Reduced +/- Confusion
20% Totally Bed Bound Unable to do Any Activity Total Care Minimal to Full or Drowsy;
Extensive Disease Sips +/- Confusion
10% Totally Bed Bound Unable to do Any Activity Total Care Mouth Care Drowsy or Coma;
Extensive Disease Only +/- Confusion
0%
PPS Score Level:
Palliative Performance Score Response
Palliative Performance Score Response: 50%
Physical Exam
-
General: No Apparent Distress and Comfortable
Psych: Calm
[2024-04-15] MEDS: SINGULAIR 10 MG PO (17:58)
[2024-04-15] MEDS: SENOKOT-S 1 TABLET PO (21:20)
[2024-04-15 23:59] VITALS: BP 120/46
--- NOTE | 2024-04-16 03:06 | PTCARENOTE ---
Rec'd pt at change of shift AAO*3 and VSS on 2l of oxygen (see flowchart). Pt complained of RU quadrant abdominal pain and pain medication given per order (see mar). Pt agreed to call for help before ambulating and maintained on high fall risk.
Pt resting with call rodgers in reach.
[2024-04-16 07:35] VITALS: BP 109/49
[2024-04-16] MEDS: MIRALAX 17 GRAMS PO (07:50)
[2024-04-16] MEDS: LOPRESSOR 100 MG PO ×2 (07:50→20:56)
[2024-04-16] MEDS: DILAUDID 4 MG PO ×2 (07:50→20:53)
--- NOTE | 2024-04-16 10:46 | PN.CDI ---
CDI
- -
CDI:
Physician Documentation Request
Admit Date: 04/07/24 22:52
Dear Doctor Howard,
04/10 note /assessment 'severe protein calorie malnutrition chronic illness > 7.5 % in 3 months, < 75% of nutrition needs met for more than 1 month. '
Based on the above information and your assessment, which of the following most accurately represents the patient's nutritional status?
Malnutrition (specify if mild, moderate or severe)
No nutritional deficiency
Other (please specify)
[place] Criteria ([facility] Hospitalist 2017)
2 or more criteria must be present for either
non severe or severe malnutrition
Note that the criteria differs related to the
presence of an acute or chronic illness
Acute Illness Chronic Illness
Energy Intake Non Severe: <75% for >7 days Non Severe: <75% for >1 month
Severe: <50% for >5 days Severe: <75% for >1 month
Weight Loss Non Severe: 1-2% over 1 week Non Severe: 5% over 1 month
5% over 1 month 7.5% over 3 months
7.5% over 3 months 10% over 6 months
1 year N/A 20% over 1 year
Severe: >2% over 1 week Severe: >5% over 1 month
>5% over 1 month >7.5% over 3 months
>7.5% over 3 months >10% over 6 months
1 year N/A >20% over 1 year
Body Fat Non Severe: Mild Decrease Non Severe: Mild Loss
Severe: Moderate Decrease Severe: Severe Loss
Muscle Mass Non Severe: Mild Decrease Non Severe: Mild Loss
Severe: Moderate Decrease Severe: Severe Loss
Fluid Accumulation Non Severe: Mild Accumulation Non Severe: Mild Accumulation
Severe: Moderate to severe Severe: Moderate to severe
accumulation accumulation
Reduced Seasonal Customer Service Associate Strength Non Severe: N/A Non Severe: N/A
Severe: Measurably reduced Severe: Measurably reduced
Use of terms such as suspected, likely, concern for, or probable (associated with a specific diagnosis that is being evaluated, monitored, or treated as if it exists) are acceptable and can be coded in the inpatient setting, when documented at the
time of discharge.
Thank you,
Imani Gomez RN, BSN
CDI Specialist
tiger text
Please use your independent medical judgment in providing your response.
--- NOTE | 2024-04-16 11:23 | PTCARENOTE ---
Spoke with hospice/home health aide this AM. Plan is to DC patient back home tomorrow with nursing support through [facility]. ui architect is going to call family and provide an update. Pt resting comfortably in bed at this time with no c/o pain. Scheduled AM pain
medication previously administered.
--- NOTE | 2024-04-16 11:30 | W.PN.HOSP.TC ---
Today's Communication/Plan
-
monitor vitals
see plan
plan for eventual dc to hospice tomorrow
pain control
hospice chaplain involved
Assessment / Plan
Assessment / Plan
Impression:
Obstructive jaundice
Severe abdominal pain
Pancreatic mass
Coagulopathy
Other conditions:
Metastatic lung carcinoma.
Diabetes type 2.
Hypertension.
Abdominal aortic aneurysm
COPD
Plan:
Abdominal ultrasound: Pancreatic head mass likely malignancy. Slightly enlarged. New associated mild intra and extrahepatic biliary dilatation. CBD size 10 cm.
MR Abdomen W/o & W Contrast
1.There is a slightly ill-defined hypoenhancing lesion within the pancreatic head/uncinate process measuring approximately 2.9 x 2.4 cm with associated mild local mass effect. 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 There
is narrowing of the adjacent main pancreatic duct with mild prominence of the duct within the body and tail. This lesion appears to abut the posterior aspect of the main portal vein without discrete invasion. No evidence of involvement of the
superior mesenteric artery.
2.There are peripherally enhancing lesions within the right hepatic lobe measuring 2.0 cm and 1.5 cm which are new and most consistent with hepatic metastases.
3. There is long segment narrowing of the common bile duct secondary to extrinsic compression by the pancreatic lesion. The gallbladder appears mildly distended.
4. 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 Dilated infrarenal abdominal aorta measuring up to 2.6 cm, similar to prior. Chronic infrarenal aortic dissection.
Abdominal pain and obstructive jaundice.
Recently diagnosed pancreatic head mass with biopsy consistent of malignancy possibly metastatic from lung, also could not exclude primary pancreatic tumor.
Suspect primary pancreatic malignancy with biliary obstruction.
-appreciate Oncology and GI
-s/p ERCP with stent placement 04/09.
-Continue adjustment of analgesic regimen --> discussed with pharmacy and fentanyl patch started on 04/10;dose increased to 50mcg on 04/12; now also on standing dilaudid
-regular diet
-appreciate palliative care
-appreciate hospice - plan is to monitor pain and DC to hospice eventually. spoke with hospice chaplain and plan for possible dc 04/17 on hospice.
Type 2 diabetes.
Hold metformin.
COPD without exacerbation.
Respiratory status stable.
Episode of desaturation likely secondary to severe pain.
Continue oxygen supplementation if required.
Continue home medication regimen including Bevespi, methadone, albuterol, montelukast
severe protein calorie malnutrition
Essential hypertension.
continue lopressor
stop other medications
General: No Apparent Distress
HEENT: Normocephalic, Atraumatic and PERRLA
Respiratory: Negative Wheezes
Cardiac: Regular Rhythm and S1/S2
GI: Soft, Nondistended, Normal Bowel Sounds and Tender (most tender medial RUQ)
Musculoskeletal: No Clubbing, No Cyanosis and No Edema
Skin: Jaundice
Neuro: Awake, Alert and Oriented
Psych: Calm
Anticipated Discharge: Within 24 hours
Subjective/Interval History
-
Date of Service: April 16, 2024
appears comfortable
Objective Data
-
Vital Signs:
Vital Signs
Temp Pulse Resp BP Pulse Ox
98.6 F 84 14 109/49 100
04/16/24 07:35 04/16/24 07:50 04/16/24 07:35 04/16/24 07:50 04/16/24 07:35
I&O
04/15/24 04/16/24 04/17/24
06:59 06:59 06:59
Intake Total 1040 / 1040 1320 / 1320
Balance 1040 / 1040 1320 / 1320
[2024-04-16 15:35] VITALS: BP 113/51
[2024-04-16] MEDS: SENOKOT-S 1 TABLET PO (16:19)
--- NOTE | 2024-04-16 16:37 | CM ---
Reviewed the chart notes and spoke with the patient at the beside. IMM reviewed. Patient is anticipating be discharged tomorrow to home via BLS on Hospice. Equipment will be in home late morning. Hospice requesting 1:00pm pick-up, arranged.
[id number] DNR on chart, attending aware. CM continues to be available to patient/family and is monitoring medical plan for needs at discharge.
Plan: Discharge to home tomorrow on Hospice.
[2024-04-16] MEDS: SINGULAIR 10 MG PO (17:11)
[2024-04-16] MEDS: MIRALAX PO (20:56)
[2024-04-16] MEDS: DILAUDID 1 MG IV (21:22)
[2024-04-16 23:16] VITALS: BP 101/43
[2024-04-17] MEDS: DILAUDID 4 MG PO ×2 (08:09→12:14)
[2024-04-17] MEDS: LOPRESSOR 100 MG PO (08:09)
[2024-04-17] MEDS: MIRALAX PO (08:09)
[2024-04-17] MEDS: DILAUDID 1 MG IV (09:01)
--- NOTE | 2024-04-17 10:50 | W.PN.HOSP.TC ---
Today's Communication/Plan
-
monitor vitals
see plan
dc on hospice today
Time of discharge 37 minutes
Assessment / Plan
Assessment / Plan
Impression:
Obstructive jaundice
Severe abdominal pain
Pancreatic mass
Coagulopathy
Severe protein calorie malnutrition
Other conditions:
Metastatic lung carcinoma.
Diabetes type 2.
Hypertension.
Abdominal aortic aneurysm
COPD
Plan:
Abdominal ultrasound: Pancreatic head mass likely malignancy. Slightly enlarged. New associated mild intra and extrahepatic biliary dilatation. CBD size 10 cm.
MR Abdomen W/o & W Contrast
1.There is a slightly ill-defined hypoenhancing lesion within the pancreatic head/uncinate process measuring approximately 2.9 x 2.4 cm with associated mild local mass effect. 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 There
is narrowing of the adjacent main pancreatic duct with mild prominence of the duct within the body and tail. This lesion appears to abut the posterior aspect of the main portal vein without discrete invasion. No evidence of involvement of the
superior mesenteric artery.
2.There are peripherally enhancing lesions within the right hepatic lobe measuring 2.0 cm and 1.5 cm which are new and most consistent with hepatic metastases.
3. There is long segment narrowing of the common bile duct secondary to extrinsic compression by the pancreatic lesion. The gallbladder appears mildly distended.
4. 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 Dilated infrarenal abdominal aorta measuring up to 2.6 cm, similar to prior. Chronic infrarenal aortic dissection.
Abdominal pain and obstructive jaundice.
Recently diagnosed pancreatic head mass with biopsy consistent of malignancy possibly metastatic from lung, also could not exclude primary pancreatic tumor.
Suspect primary pancreatic malignancy with biliary obstruction.
-appreciate Oncology and GI
-s/p ERCP with stent placement 04/09.
-Continue adjustment of analgesic regimen --> discussed with pharmacy and fentanyl patch started on 04/10;dose increased to 50mcg on 04/12; now also on standing dilaudid
-regular diet
-appreciate palliative care
-appreciate hospice - plan is to monitor pain and DC to hospice eventually. spoke with circuit walker and plan for possible dc 04/17 on hospice.
Type 2 diabetes.
Hold metformin.
COPD without exacerbation.
Respiratory status stable.
Episode of desaturation likely secondary to severe pain.
Continue oxygen supplementation if required.
Continue home medication regimen including Bevespi, methadone, albuterol, montelukast
severe protein calorie malnutrition
Essential hypertension.
continue lopressor
stop other medications
General: No Apparent Distress
HEENT: Normocephalic, Atraumatic and PERRLA
Respiratory: Negative Wheezes
Cardiac: Regular Rhythm and S1/S2
GI: Soft, Nondistended, Normal Bowel Sounds and Tender (most tender medial RUQ)
Musculoskeletal: No Clubbing, No Cyanosis and No Edema
Skin: Jaundice
Neuro: Awake, Alert and Oriented
Psych: Calm
Anticipated Discharge: Today
Subjective/Interval History
-
Date of Service: April 17, 2024
has some pain
Objective Data
-
Vital Signs:
Vital Signs
Temp Pulse Resp BP Pulse Ox
98.6 F 78 17 101/43 99
04/16/24 23:16 04/16/24 23:16 04/16/24 23:16 04/16/24 23:16 04/17/24 03:43
I&O
04/16/24 04/17/24 04/18/24
06:59 06:59 06:59
Intake Total 1320 / 1320 1440 / 1440
Balance 1320 / 1320 1440 / 1440
--- NOTE | 2024-04-17 10:50 | W.DCSUMMARY ---
Discharge Summary
Discharge Data
Date of Admission: 04/07/24
Date of Discharge: 04/17/24
-
Pending Results: No
Hospital Course
73-year-old female with pancreatic mass with obstructive jaundice, metastatic lung carcinoma, diabetes mellitus, hypertension, abdominal aortic aneurysm, COPD came to the hospital with abdominal pain obstructive jaundice which was likely thought was
secondary to possible pancreatic tumor. Patient underwent ERCP with stent placement by GI. Patient was also seen by oncology throughout hospitalization. Oncology agreed with patient on hospice. Palliative care was also involved. Patient did
require multiple adjustment with her pain medications for comfort. She was eventually started on fentanyl and Dilaudid. Once her pain was controlled, she was then discharged home on hospice.
Discharge Plan
-
Patient Disposition: Home with Hospice
Discharge Diagnosis/Procedures: Abdominal pain and obstructive jaundice secondary to pancreatic malignancy with biliary obstruction
Intractable pain secondary to malignancy
Diet: As tolerated
Activity: With assistance and As tolerated
Driving Restrictions: Not until seen by your Dr
Bathing Restrictions: None
Activity Restrictions/Additional Instructions:
please follow-up with your hospice physician
Referrals:
Sommer Pedraza DO [Family Provider] - in less than 1 week
Meredith Tracy MD [Active] -
Prescriptions:
New
fentanyl 50 mcg/hr Patch 72 Hour
1 patch transdermal Q72H Qty: 5 0RF
hydromorphone 4 mg Tablet
4 mg PO Q4HPRN PRN (Reason: severe pain) Qty: 0 0RF
hydromorphone 4 mg Tablet
4 mg PO BID Qty: 10 0RF
polyethylene glycol 3350 [HealthyLax] 17 gram Powder In Packet
17 g PO BID PRNQty: 0 0RF
acetaminophen 325 mg Tablet
650 mg PO Q4HPRN PRN (Reason: mild pain/QUEEN/temp> 100.4F) Qty: 0 0RF
sennosides-docusate sodium 8.6-50 mg Tablet
1 tab PO BIDPRN PRN (Reason: constipation) Qty: 0 0RF
Continued
albuterol sulfate 1 PUFF HFA aerosol inhaler
2 puff inhalation R Q4 PRN (Reason: sob/wheeze)
cetirizine [Zyrtec] 10 mg Tablet
10 mg PO DAILYPRN PRN (Reason: allergies)
alprazolam 0.25 mg tablet
0.125 - 0.25 mg PO DAILYPRN PRN (Reason: anxiety)
Patient Comments:
03/15/2024: last filled 12/12/22, 30 tabs for 30 days from [facility]
nitroglycerin [Nitrostat] 0.4 mg Tablet, Sublingual
0.4 mg SUBLINGUAL [id number] PRN (Reason: chest pain)
montelukast 10 mg tablet
10 mg PO QPM
fluticasone propionate 50 mcg/actuation [place],Suspension
1 spray INTRANASAL DAILYPRN PRN (Reason: allergies)
Bevespi Aerosphere 9-4.8 mcg HFA aerosol inhaler
2 puff INHALATION R BID
metoprolol tartrate 100 mg Tablet
100 mg PO BID
ondansetron 4 mg tablet,disintegrating
4 mg PO Q8H PRN (Reason: nausea and vomiting) Qty: 21 0RF
Discontinued
aspirin 81 MG tablet,delayed release (DR/EC)
81 mg PO DAILY Qty: 0 0RF
Medical Marijuana drops
1 dose PO HSPRN PRN (Reason: anxiety/sleep)
rosuvastatin 10 mg tablet
10 mg PO QPM
amlodipine 10 mg Tablet
10 mg PO DAILY
lisinopril 2.5 mg Tablet
2.5 mg PO DAILY
metformin 500 mg tablet
500 mg PO BID
oxycodone-acetaminophen [Endocet] 5-325 mg tablet
1 tab PO Q6H PRN (Reason: sever pain) 3 Days Qty: 12 0RF
Rx Instructions:
do not use while operating heavy machinery, sleepy or difficulty breahting
Discharge Orders:
Discharge Patient (As Directed); Ordered 04/17/24
Ordered By: Wilmer Lawrence
Discharge Date and Time
Discharge Date/Time: 04/17/24 13:04
Print Language: ESTONIAN
[2024-04-17 10:58] VITALS: BP 104/44
[2024-04-17 11:51] VITALS: BP 124/59
--- NOTE | 2024-04-17 12:00 | PTCARENOTE ---
Patient discharged on home hospice. Spoke to and updated over the phone. Acute care to transport patient.
== END 2024-04-17 13:04 | disposition hospice, home (50) | DRG 435 ==
LOC: 2 NORTH 22:52
PROVIDERS: Internal Medicine; Internal Medicine Gastroenterology; Nurse Practitioner Adult Health; Nurse Practitioner Family; Student in an Organized Health Care Education/Training Program; ADMITTING PHYSICIAN Internal Medicine; ATTENDING PHYSICIAN Internal Medicine; CONSULT PHYSICIAN Internal Medicine Hospice and Palliative Medicine; EMERGENCY PHYSICIAN Emergency Medicine; FAMILY PHYSICIAN Internal Medicine; OTHER PHYSICIAN Internal Medicine Hematology & Oncology
PROC: 0F778DZ Dilation of Common Hepatic Duct with Intraluminal Device, Via Natural or Artificial Opening Endoscopic (ICD-10-PCS; 2024-04-09)
PROC: 0F7D8DZ Dilation of Pancreatic Duct with Intraluminal Device, Via Natural or Artificial Opening Endoscopic (ICD-10-PCS; 2024-04-09)
PROC: 0F798DZ Dilation of Common Bile Duct with Intraluminal Device, Via Natural or Artificial Opening Endoscopic (ICD-10-PCS; 2024-04-09)
DX: C25.0 Malignant neoplasm of head of pancreas (principal); E43 Unspecified severe protein-calorie malnutrition; K83.1 Obstruction of bile duct; C78.7 Secondary malignant neoplasm of liver and intrahepatic bile duct; R44.3 Hallucinations, unspecified; C34.90 Malignant neoplasm of unspecified part of unspecified bronchus or lung; D68.9 Coagulation defect, unspecified; E11.9 Type 2 diabetes mellitus without complications; Z51.5 Encounter for palliative care; Z66 Do not resuscitate; I10 Essential (primary) hypertension; I71.20 Thoracic aortic aneurysm, without rupture, unspecified; J44.9 Chronic obstructive pulmonary disease, unspecified; K83.8 Other specified diseases of biliary tract; E78.00 Pure hypercholesterolemia, unspecified; F41.9 Anxiety disorder, unspecified; G89.3 Neoplasm related pain (acute) (chronic); K59.03 Drug induced constipation; R74.8 Abnormal levels of other serum enzymes; R79.89 Other specified abnormal findings of blood chemistry; Z68.22 Body mass index [BMI] 22.0-22.9, adult; Z87.01 Personal history of pneumonia (recurrent); Z79.82 Long term (current) use of aspirin; Z79.84 Long term (current) use of oral hypoglycemic drugs; Z79.899 Other long term (current) drug therapy; Z87.19 Personal history of other diseases of the digestive system; Z92.21 Personal history of antineoplastic chemotherapy; Z87.891 Personal history of nicotine dependence; Z90.710 Acquired absence of both cervix and uterus; Z88.0 Allergy status to penicillin; Z80.0 Family history of malignant neoplasm of digestive organs; Z80.3 Family history of malignant neoplasm of breast
CPT/HCPCS: 71045; 74018; 74330; 76000; 76700; 80048; 80053; 80143; 82248; 82962; 83605; 83690; 83735; 85025; 85027; 85610; 86803; 94640; 96361; 96374; 96375; 96376; 99285; C1769; C1876; C2617; C2625